=== PATIENT | female | born 1955 | race Hispanic/Latino ===

== ENCOUNTER 2018-02-01 12:59 | Inpatient (IN) | payer MEDICAID ==
--- NOTE | 2018-02-01 13:11 | ED PDOC ---
Arrival/HPI - General Chief Complaint: Altered Mental Status Time Seen by Provider: 02/01/18 13:04 Historian: Patient, Detention, EMS - History of Present Illness Narrative History of Present Illness (Text): 02/01/18 13:36 Pt p/w + altered behavior, hallucinations, disorderly behavior from [facility] [place] at [facility]/rehab facility; pt does not remember why she is in the ED; pt states she has no silav/pain, no sob, no abd pain, no n/v, no numbness/ tingling, no urinary/bowel changes; no rashes; no other complaints; pt is here for further eval. per group home at [facility] [place] at [facility], nurse Smitha, pt was noted to have worsening disruptive behavior, pt was also destructive, breaking things and affecting pt's roommates; per nurse Smitha, pt was noted to try to pour water on other residents/roommates; pt also was noted to be sexually preoocupied (i.e walking around the floor naked); pt was assessed by school social worker and expressed concern that patient was having auditory hallucinations; paranoid behavior; no other medical complaints noted; pt had been at the assisted living facility at [facility] [place] since her ortho surgery 11/2017; pt was just moved to the dementia floor yesterday from subacute care due to her worsening behavior PCP: Dr Feliz pt is at group home for orthopedic aftercare Time/Duration: Prior to Arrival Symptom Onset: Sudden Symptom Course: Unchanged Activities at Onset: Rest Context: Other (group home) Past Medical History - Provider Review Nursing Documentation Reviewed: Yes - Travel History Have you recently traveled outside [place] w/in the past 3 mons?: No - Past History Past History: No Previous - Infectious Disease Hx of Infectious Diseases: None - Reproductive Menopause: Yes Currently : No Family/Social History - Physician Review Nursing Documentation Reviewed: Yes Family/Social History: No Known Family HX Smoking Status: Unknown If Ever Smoked Hx Alcohol Use: No Hx Substance Use: No Hx Substance Use Treatment: No Allergies/Home Meds Allergies/Adverse Reactions: Allergies No Known Allergies Allergy (Verified 02/01/18 13:17) Home Medications: Home Meds Medication Instructions Recorded Confirmed Acetaminophen [Tylenol 325mg tab] 650 mg PO PRN PRN 02/01/18 02/01/18 Bisacodyl [Ducolax] 10 mg RC PRN PRN 02/01/18 02/01/18 Celecoxib [CeleBREX] 100 mg PO BID 02/01/18 02/01/18 Cholecalciferol (Vitd3)/Vit K2 [D3 2,000 iu PO DAILY 02/01/18 02/01/18 + K2 Dots 1,000 Units Tab] Docusate [Colace] 100 mg PO BID 02/01/18 02/01/18 Enoxaparin [Lovenox] 40 mg SQ DAILY 02/01/18 02/01/18 Ferrous Sulfate [Ferosul] 325 mg PO DAILY 02/01/18 02/01/18 Folic Acid 1 mg PO DAILY 02/01/18 02/01/18 [place] Carbonate ER Tab [[place] 450 mg PO BID 02/01/18 02/01/18 Carbonate] Magnesium Hydroxide [Milk Of 30 ml PO PRN PRN 02/01/18 02/01/18 Magnesia] Sod Phos,M-B/Na Phos,Di-Ba [Fleet 0 ml RC PRN PRN 02/01/18 02/01/18 Enema] Review of Systems - Review of Systems Constitutional: Normal Eyes: Normal ENT: Normal Respiratory: Normal Cardiovascular: Normal Gastrointestinal: Normal Genitourinary Female: Normal Musculoskeletal: Normal Skin: Normal Neurological: Normal Endocrine: Normal Hemo/Lymphatic: Normal Psychiatric: Other (unable to assess) Physical Exam Vital Signs Reviewed: Yes Vital Signs Temp Pulse Resp BP Pulse Ox 02/01/18 15:23 104 H 18 151/87 H 98 02/01/18 13:14 98.3 F 98 H 18 138/78 99 Temperature: Afebrile Blood Pressure: Normal Pulse: Regular Respiratory Rate: Normal Appearance: Positive for: Well-Appearing, Non-Toxic, Other (NAD, comfortable appearing, alert/awake, GCS = 15, oriented x 1 (not to place/time/date)) Pain Distress: None Mental Status: Positive for: Confused - Systems Exam Head: Present: Atraumatic, Normocephalic Pupils: Present: PERRL, Other (intact visual field; no nystagmus, no photophobia ) Extroacular Muscles: Present: EOMI Conjunctiva: Present: Normal Ears: Present: Normal Mouth: Present: Dry, Normal Teeth, Other (fair dentitions, mild dry oral mucosa , uvula/tongue are midline, no exudate/lesions) Pharnyx: Present: Normal Nose (External): Present: Atraumatic Nose (Internal): Present: Normal Inspection Neck: Present: Normal Range of Motion, Trachea Midline, Other (intact ROM, no midline tenderness, no nuchal rigidity, no meningeal signs, no step off). No: MIDLINE TENDERNESS Respiratory/Chest: Present: Clear to Auscultation, Good Air Exchange, Other ( coarse breath sounds noted b/l, no rales/rhonchi/wheezing; no tachypenia) Cardiovascular: Present: Regular Rate and Rhythm, Normal S1, S2 Abdomen: Present: Normal Bowel Sounds, Other (well nourished female, no focal tenderness, no masses/rebound/guarding/rigidity, no haddad's sign, no mcburney' s point tenderness). No: Tenderness, Distention Back: Present: Normal Inspection. No: CVA Tenderness, Midline Tenderness Upper Extremity: Present: Normal Inspection, Normal ROM, NORMAL PULSES, Other ( noted right upper arm multiple areas of ecchymosis, with different discoloration (different stages of healing?); no focal tenderness, strength 5/5 grossly intact in all limbs). No: Deformity Lower Extremity: Present: Normal Inspection, NORMAL PULSES, Neurovascularly Intact, Other (decr ROM to b/l lower limbs, neurovasc intact, no gross deformities noted) Neurological: Present: GCS=15, CN II-XII Intact Skin: Present: Warm, Normal Color, Other (cap refill ~ 1 sec, as stated above ecchymosis to right arm; + b/l elbow, b/l knee slight skin erythema, no lacerations/abrasions noted) Psychiatric: Present: Alert Medical Decision Making ED Course and Treatment: 02/01/18 13:30 Impression: AMS, altered behavior i have consider all the differential diagnosis regarding pt's chief medical complaints/clinical findings, including but are not limited to: medical clearance, PES/crisis eval, r/o medical cause A/P: altered behavior - labs - iv - xray - ct - observe - supportive care I spoke with pt's school social worker, Yahir Jaime ([phone]) who states that pt usually is very mild mannered and her behavior escalated yesterday when she became disruptive to her roomates as well as destructive; pt also was noted to be walking around naked; pt with noted auditory hallucinations, and exhibiting paranoid behavior PT IS MEDICALLY CLEARED FOR PSYCH EVAL 02/01/18 15:25 Patient was evaluated by [facility] crisis counsellor. Patient voluntarily will be committed for further psych evaluation and stabilization. Will admit patient to psych team. pt is made aware of her medical results agrees with admission/psych Re-evaluation Time: 15:30 Reassessment Condition: Unchanged - Lab Interpretations Lab Results: 02/01/18 13:47 02/01/18 13:47 Lab Results 02/01/18 16:01: Urine Color Yellow, Urine Appearance Sl cloudy, Urine pH 6.0, Ur Specific [place] 1.010, Urine Protein Negative, Urine Glucose (UA) Negative, Urine Ketones Negative, Urine Blood Small H, Urine Nitrate Negative, Urine Bilirubin Negative, Urine Urobilinogen 0.2, Ur Leukocyte Esterase Large H, Urine RBC 0 - 2, Urine WBC 10 - 15, Urine Bacteria Trace 02/01/18 13:47: [place] 1.5 H 02/01/18 13:47: Alcohol, Quantitative < 10 02/01/18 13:47: Salicylates < 1 L, Acetaminophen < 10.0 L 02/01/18 13:47: Sodium 144, Potassium 3.5 L, Chloride 109 H, Carbon Dioxide 25, Anion Gap 13, BUN 19, Creatinine 1.2, Est GFR ( Amer) 55, Est GFR (Non- Af Amer) 46, Random Glucose 112 H, Calcium 10.8 H, Total Bilirubin 0.5, AST 31, ALT 38, Alkaline Phosphatase 189 H, Total Protein 7.0, Albumin 3.9, Globulin 3.1 , Albumin/Globulin Ratio 1.3 02/01/18 13:47: WBC 15.0 H, RBC 4.39, Hgb 12.8, Hct 39.7, MCV 90.4, MCH 29.2, MCHC 32.2, RDW 15.0 H, Plt Count 242, MPV 10.0, Gran % 81.7 H, Lymph % (Auto) 8.3 L, [place] % (Auto) 9.5 H, Eos % (Auto) 0.3 L, Baso % (Auto) 0.2, Gran # 12.24 H, Lymph # (Auto) 1.2, Taylor # (Auto) 1.4 H, Eos # (Auto) 0.0, Baso # (Auto) 0.03 I have reviewed the lab results: Yes Interpretation: All labs normal - RAD Interpretation Narrative RAD Interpretations (Text): 02/01/18 14:30 Chest X-ray: Creator : Mukesh Hernandez MD FINDINGS: LUNGS: No active pulmonary disease. PLEURA: No significant pleural effusion identified, no pneumothorax apparent. CARDIOVASCULAR: Normal. OSSEOUS STRUCTURES: No significant abnormalities. VISUALIZED UPPER ABDOMEN: Normal. OTHER FINDINGS: None. IMPRESSION: No active disease. 02/01/18 15:[address]: Creator: Mukesh Wills MD Impression: No intracranial mass, hemorrhage or evidence of acute infarct. Minimal chronic white matter ischemic change. Old left basal ganglia lacunar infarct. Radiology Orders: 02/01/18 13:32 HEAD W/O CONTRAST [CT] Stat 02/01/18 13:33 CHEST PORTABLE [RAD] Stat Dope [employer] Operator: ED Physician, Radiologist - EKG Interpretation EKG Interpretation (Text): 02/01/18 13:59 NSr at 95 bpm, normal axis, no ectopy, non-specific st-t changes, BORDERLINE EKG ; no old ekg to compare with Interpreted by ED Physician: Yes Type: 12 lead EKG Comparison: No previous EKG avail. - Medication Orders Current Medication Orders: Discontinued Medications Ziprasidone (Geodon Inj) 20 mg IM STAT STA PRN Reason: Protocol Stop: 02/01/18 15:29 - Scribe Statement The provider has reviewed the documentation as recorded by the Scribe Disposition/Present on Arrival - Present on Arrival Any Indicators Present on Arrival: No History of DVT/PE: No History of Uncontrolled Diabetes: No Urinary Catheter: No History of Decub. Ulcer: No History Surgical Site Infection Following: Orthopedic Procedures - Disposition Have Diagnosis and Disposition been Completed?: Yes Diagnosis: Schizoaffective disorder, bipolar type, Hallucination Disposition: HOSPITALIZED Disposition Time: 16:00 Patient Plan: Admission (psych unit) Condition: STABLE Referrals: Guido Feliz DO [Primary Care Provider] - Follow up with primary Forms: [employer] (Hungarian)
[2018-02-01 13:14] VITALS: BMI 39.0
[2018-02-01 14:00] LABS: BASO # 0.03 K/mm3 (0.0-2.0); BASO % 0.2 % (0.0-3.0); EOS % 0.3 % (1.5-5.0); GRAN # 12.24 (1.4-6.5); GRAN % 81.7 % (50.0-68.0); HEMOGLOBIN 12.8 g/dL (12.0-16.0); LYMPH # 1.2 (1.2-3.4); LYMPH % 8.3 % (22.0-35.0); MEAN CELL VOLUME 90.4 fl (80.0-105.0); MEAN CORPUSCULAR HEMOGLOBIN 29.2 pg (25.0-35.0); MEAN CORPUSCULAR HGB CONC 32.2 g/dl (31.0-37.0); MONO # 1.4 (0.1-0.6); MONO % 9.5 % (1.0-6.0); RBC 4.39 10^6/uL (3.5-6.1)
[2018-02-01 14:15] LABS: ACETAMINOPHEN < 10.0 ug/ml (10.0-20.0); ALB/GLOB RATIO 1.3 (1.1-1.8); ALBUMIN 3.9 g/dL (3.0-4.8); CALCIUM 10.8 mg/dL (8.4-10.5); SALICYLATE < 1 mg/dL (2.0-20.0)
--- NOTE | 2018-02-01 14:28 | RAD ---
HISTORY: AMS, hallucinating/medical clearance COMPARISON: No prior. FINDINGS: LUNGS: No active pulmonary disease. PLEURA: No significant pleural effusion identified, no pneumothorax apparent. CARDIOVASCULAR: Normal. OSSEOUS STRUCTURES: No significant abnormalities. VISUALIZED UPPER ABDOMEN: Normal. OTHER FINDINGS: None. IMPRESSION: No active disease.
--- NOTE | 2018-02-01 15:00 | CT ---
PROCEDURE: CT HEAD WITHOUT CONTRAST. HISTORY: AMS, hallucinating/medical clearance COMPARISON: None available. TECHNIQUE: Axial computed tomography images were obtained through the head/brain without intravenous contrast. Radiation dose: Total exam DLP = 88.24 mGy-cm. This CT exam was performed using one or more of the following dose reduction techniques: Automated exposure control, adjustment of the mA and/or kV according to patient size, and/or use of iterative reconstruction technique. FINDINGS: HEMORRHAGE: No intracranial hemorrhage. BRAIN: No mass effect or edema. No significant atrophy. Minimal periventricular white matter lucency adjacent to the frontal horns of the lateral ventricles, consistent with chronic microvascular ischemic change. Small old lacunar infarct in the head of the left caudate nucleus. No evidence of acute infarct. VENTRICLES: Unremarkable. No hydrocephalus. CALVARIUM: Unremarkable. PARANASAL SINUSES: Unremarkable as visualized. No significant inflammatory changes. MASTOID AIR CELLS: Unremarkable as visualized. No inflammatory changes. OTHER FINDINGS: None. IMPRESSION: No intracranial mass, hemorrhage or evidence of acute infarct. Minimal chronic white matter ischemic change. Old left basal ganglia lacunar infarct.
[2018-02-01 16:16] LABS: URINE BILIRUBIN NEGATIVE (NEGATIVE); URINE BLOOD SMALL (NEGATIVE); URINE GLUCOSE (UA) NEGATIVE (NEGATIVE); URINE LEUKOCYTE ESTERASE LARGE Leu/uL (NEGATIVE); URINE PROTEIN NEGATIVE mg/dL (<30 mg/dL); URINE UROBILINOGEN 0.2 E.U./dL (<1 E.U./dL)
[2018-02-01 16:17] LABS: URINE APPEARANCE SL CLOUDY (CLEAR); URINE COLOR YELLOW (YELLOW)
[2018-02-01 16:21] LABS: URINE BACTERIA TRACE (NEG); URINE RBC 0 - 2 /hpf (0-2)
[2018-02-01 16:37] LABS: BARBITURATES, UR NEGATIVE (NEGATIVE); BENZODIAZEPINES, UR NEGATIVE (NEGATIVE); OPIATES, UR NEGATIVE (NEGATIVE); PHENCYCLIDINE, UR NEGATIVE (NEGATIVE)
--- NOTE | 2018-02-01 20:43 | CARD ---
APPROVED REPORT EKG Measurement Heart [id number] AL [id number] <Conclusion> Sinus rhythm with short AL Otherwise normal ECG
[2018-02-01] MEDS ORDERED: oxyCODONE 5 mg Immediate Release Tab PO PRN (23:48)
[2018-02-01] MEDS ORDERED: Magnesium Hydroxide Susp 30 ml UD PO PRN (23:55)
[2018-02-01] MEDS ORDERED: Alum-Mag Hydrox-Simethicone Susp (30 mL) PO PRN (23:55)
--- NOTE | 2018-02-02 01:04 | PCM.BM ---
<Walt Richards - Last Filed: 02/02/18 01:01> Treatment Plan Problems - Problems identified on initial assessmt Agitated/Aggressive Behavior Date Initiated: 02/01/18 Time Initiated: 20:15 Assessment reference: NA Status: Active Priority: 1 Delusions Date Initiated: 02/01/18 Time Initiated: 20:15 Assessment reference: NA Status: Active Priority: 2 Thought Process Date Initiated: 02/01/18 Time Initiated: 20:15 Assessment reference: NA Status: Active Priority: 3 Ineffective Coping Date Initiated: 02/01/18 Time Initiated: 20:15 Assessment reference: NA Status: Active Priority: 4 Treatment assets and liabiliti Patient Assests: good past tx response Patient Liabilities: poor support system, imparied memory - Milieu Protocol Maintain good personal hygiene: daily Encourage regular showers, every shift Remind patient to perform daily oral care, every shift Assist patient to perform ADL's Maintain personal safety: every shift Educate patient to report safety concerns to staff, every shift Monitor environment for contraband/sharps Medication safety: Monitor for expected outcome, potential side effects: every shift, Assess barriers to learning: every shift, Assess readiness for medication education: every shift Family Contact Family involvement: No known Family/SO Family contact: Other - Goals for Treatment Patient goals for treatment: Unable to identify Discharge/Continuing Care - Education Needs Education Needs: Patient Medication, Patient Diagnosis/Disease Process, Patient Coping Skills, Patient Anger Management skills, Patient Placement options, Patient Community resources, Patient Activities of Daily Living, Patient Pain, Patient Nutrition, Patient Uses of Medical Equipment, Patient Health Practices/ Safety, Patient Personal Hygiene/Grooming, Patient Aftercare Safety Plan - Discharge Discharge Criteria: Tolerates medication w/o severe side effects, Free of agitation <Kiana Hector - Last Filed: 02/02/18 13:39> - Diagnosis (1) Schizoaffective disorder, bipolar type Status: Acute Interventions: 02/02/18 13:39 Psychoeducation supportive therapy Psychopharmacology/adjustment of medications as needed/ monitoring possible side effects Evaluate pt on daily basis Compliance with medications and follow up appointments Long acting medication if pt is noncompliant with pill form Suicide and homicide risk assessment and prevention, coping strategies, safety plan Relapse prevention Reduction of symptoms Improve functional status Possible assertive community treatment Cognitive behavioral therapy Family involvement Possible social skill training as outpatient <Holly Ervin Y - Last Filed: 02/04/18 16:46> Family Contact Family involvement: Family/SO is involved Family contact: Patient agrees to contact Family contact name: Keely Low([phone]) sister Family contacted how many times per week?: 2
[2018-02-02 07:15] LABS: BASO # 0.05 K/mm3 (0.0-2.0); BASO % 0.4 % (0.0-3.0); EOS # 0.1 (0.0-0.7); EOS % 0.9 % (1.5-5.0); GRAN # 10.09 (1.4-6.5); HEMOGLOBIN 12.6 g/dL (12.0-16.0); LYMPH # 1.3 (1.2-3.4); LYMPH % 9.8 % (22.0-35.0); MEAN CELL VOLUME 91.2 fl (80.0-105.0); MEAN CORPUSCULAR HEMOGLOBIN 28.4 pg (25.0-35.0); MEAN CORPUSCULAR HGB CONC 31.2 g/dl (31.0-37.0); MEAN PLATELET VOLUME 10.6 fl (7.0-11.0); MONO # 1.3 (0.1-0.6); MONO % 9.9 % (1.0-6.0); RBC 4.43 10^6/uL (3.5-6.1); RED CELL DISTRIBUTION WIDTH 15.2 % (11.5-14.5); WHITE BLOOD COUNT 12.8 10^3/ul (4.5-11.0)
[2018-02-02 07:27] LABS: ALB/GLOB RATIO 1.2 (1.1-1.8); ALBUMIN 4.1 g/dL (3.0-4.8); ALT/SGPT 32 U/L (7-56); AST/SGOT 29 U/L (14-36); BLOOD UREA NITROGEN 20 mg/dL (7-21); CALCIUM 10.7 mg/dL (8.4-10.5); GFR AFRICAN-AMERICAN > 60; GFR NON-AFRICAN AMERICAN 56; GLUCOSE,FASTING 115 mg/dL (65-110); HDL CHOLESTEROL 52 mg/dL (29-60)
[2018-02-02 07:38] LABS: LDL CHOLESTEROL 95 mg/dL (0-129)
[2018-02-02] MEDS ORDERED: Cholecalciferol 1,000 INTLU TAB PO SCH (08:00)
[2018-02-02] MEDS: Enoxaparin 30 mg Syringe SC SCH (09:39)
[2018-02-02] MEDS: Lactobacillus Acidophilus 500 MU Cap PO SCH (09:39)
[2018-02-02] MEDS: Insulin Reg-MEDIUM-Coverage SC SCH ×3 (13:14→21:07)
--- NOTE | 2018-02-02 13:39 | PCM.PSYCH ---
Initial Psychiatric Evaluation - Initial Psychiatric Evaluation Type of Admission: Voluntary Legal Status: Capacity (pt has capacity to sign consent for tx) Chief Complaint (in patient's own words): "......" Patient's Reaction to Hospitalization: pt was admitted for altered mental status, disorganized behavior, paranoid History of Present Illness and Precipitating Events: shortly patient is 62-year- female, reported h/o Bipolar disorder, not known h/ o suicidal attempts, not known h/o psychiatric admissions, pt was transferred from the [facility] in [place] where she was getting subacute care for orthopedic surgery, pt was transferred from the facility for evaluation of disorganized, psychotic, agitated and aggressive behavior. As per report from the [place] facility, pt was sexually preoccupied/constantly disrobing or walking around naked, pt was also responding to internal stimuli, pt also broke drawers in facility, was pouring water over other residents, previously pt was in assisted living, pt was able to sign consent for treatment. as per report pt was agitated, aggressive, was pouring water on the floor, 3-4 code greys called. Pt was started on 1:1 and was medicated with Gedodon and Ativan. this physician underwriter attempted to speak to the pt, but pt is deeply sedated, was able to open her eyes, but wall back asleep, as per PCP pt ate breakfast. at the time of admission pt was found Li 1.5, UTI, Tipple Greaser was contacted and as well. as per seam finisher will hold [place], it is okay to resume Macrobid. Past psychiatric h/o: Schizoaffective D/O, Bipolar Type and was recently dx. w/ Dementia w/ Beh. Disturbances. Pt. also suffers from Unspec. Intellectual Disabilities. Pt. is seen by psychiatrist Dr. Gamez, will call for collaterals. Medical h/o: New UTI, pt had been at the assisted living facility at [facility] since her ortho surgery 11/2017; anemia pt's PCP is Guido Feliz. Collaterals from [facility] by PES CresencioRanjan: "nurse Smitha, pt was noted to have worsening disruptive behavior, pt was also destructive, breaking things and affecting pt's roommates; per nurse Bone, pt was noted to try to pour water on other residents/roommates; pt also was noted to be sexually preoocupied (i.e walking around the floor naked); pt was assessed by manager social work and expressed concern that patient was having auditory hallucinations; paranoid behavior; no other medical complaints noted; pt was just moved to the dementia floor 01/31/18 from subacute care due to her worsening behavior" Family h/o unknown h/o abuse unknown h/o psych hospitalizations unknown collaterals from will be obtained, left a message substance abuse and smoking unknown 02/02/18 06:50 02/02/18 06:50 Lab Results 02/02/18 09:35: Phosphorus 3.4, Magnesium 2.8 H 02/02/18 06:50: TSH 3rd Generation 1.05 02/02/18 06:50: Sodium 148, Potassium 3.7, Chloride 113 H, Carbon Dioxide 23, Anion Gap 17, BUN 20, Creatinine 1.0, Est GFR ( Amer) > 60, Est GFR (Non- Af Amer) 56, Random Glucose 115 H, Fasting Glucose 115 H, Calcium 10.7 H, Total Bilirubin 0.8, AST 29, ALT 32, Alkaline Phosphatase 219 H, Total Protein 7.4, Albumin 4.1, Globulin 3.3, Albumin/Globulin Ratio 1.2, Triglycerides 112, Cholesterol 174, LDL Cholesterol Direct 95, HDL Cholesterol 52 02/02/18 06:50: WBC 12.8 H, RBC 4.43, Hgb 12.6, Hct 40.4, MCV 91.2, MCH 28.4, MCHC 31.2, RDW 15.2 H, Plt Count 272, MPV 10.6, Gran % 79.0 H, Lymph % (Auto) 9.8 L, [place] % (Auto) 9.9 H, Eos % (Auto) 0.9 L, Baso % (Auto) 0.4, Gran # 10.09 H, Lymph # (Auto) 1.3, [place] # (Auto) 1.3 H, Eos # (Auto) 0.1, Baso # (Auto) 0.05 02/02/18 06:50: [place] 1.0 02/01/18 16:01: Urine Opiates Screen Negative, Urine Methadone Screen Negative, Ur Barbiturates Screen Negative, Ur Phencyclidine Scrn Negative, Ur Amphetamines Screen Negative, U Benzodiazepines Scrn Negative, U Oth Cocaine Metabols Negative, U Cannabinoids Screen Negative 02/01/18 16:01: Urine Color Yellow, Urine Appearance Sl cloudy, Urine pH 6.0, Ur Specific [place] 1.010, Urine Protein Negative, Urine Glucose (UA) Negative, Urine Ketones Negative, Urine Blood Small H, Urine Nitrate Negative, Urine Bilirubin Negative, Urine Urobilinogen 0.2, Ur Leukocyte Esterase Large H, Urine RBC 0 - 2, Urine WBC 10 - 15, Urine Bacteria Trace 02/01/18 13:47: [place] 1.5 H 02/01/18 13:47: Alcohol, Quantitative < 10 02/01/18 13:47: Salicylates < 1 L, Acetaminophen < 10.0 L 02/01/18 13:47: Sodium 144, Potassium 3.5 L, Chloride 109 H, Carbon Dioxide 25, Anion Gap 13, BUN 19, Creatinine 1.2, Est GFR ( Amer) 55, Est GFR (Non- Af Amer) 46, Random Glucose 112 H, Calcium 10.8 H, Total Bilirubin 0.5, AST 31, ALT 38, Alkaline Phosphatase 189 H, Total Protein 7.0, Albumin 3.9, Globulin 3.1 , Albumin/Globulin Ratio 1.3 02/01/18 13:47: WBC 15.0 H, RBC 4.39, Hgb 12.8, Hct 39.7, MCV 90.4, MCH 29.2, MCHC 32.2, RDW 15.0 H, Plt Count 242, MPV 10.0, Gran % 81.7 H, Lymph % (Auto) 8.3 L, [place] % (Auto) 9.5 H, Eos % (Auto) 0.3 L, Baso % (Auto) 0.2, Gran # 12.24 H, Lymph # (Auto) 1.2, [place] # (Auto) 1.4 H, Eos # (Auto) 0.0, Baso # (Auto) 0.03 Vital Signs Temp Pulse Resp BP Pulse Ox 02/02/18 07:33 98.0 F 57 L 20 146/84 02/01/18 22:00 20 02/01/18 15:23 104 H 18 151/87 H 98 02/01/18 13:14 98.3 F 98 H 18 138/78 99 Current Medications: Active Medications Generic Name Dose Route Start Last Admin Trade Name Freq PRN Reason Stop Dose Admin Acetaminophen 650 mg 02/01/18 23:55 Tylenol 325mg Tab PO Q6H PRN Pain, moderate (4-7) Al Hydrox/Mg Hydrox/Simethicone 30 ml 02/01/18 23:55 Maalox Plus 30 Ml PO DAILY PRN Indigestion / Heartburn Docusate Sodium 100 mg 02/02/18 08:00 02/02/18 09:39 Colace PO 100 mg BID GREGORY Administration Enoxaparin Sodium 30 mg 02/02/18 09:15 02/02/18 09:39 Lovenox SC 30 mg DAILY [facility] Administration Protocol Ferrous Sulfate 324 mg 02/02/18 08:00 02/02/18 09:39 Feosol PO 324 mg DAILY G[facility] Administration Folic Acid 1 mg 02/02/18 08:00 02/02/18 09:40 Folic Acid PO 1 mg DAILY [facility] Administration Insulin Human Regular 0 units 02/02/18 11:30 02/02/18 13:14 Humulin R Med SC Not Given ACHS [facility] Protocol Lactobacillus Acidophilus 1 cap 02/02/18 08:00 02/02/18 09:39 Bacid Acidophilus PO 1 cap DAILY [facility] Administration Lorazepam 1 mg 02/01/18 23:59 Ativan IM Q8H PRN Anxiety Protocol Lorazepam 1 mg 02/02/18 00:00 02/02/18 09:39 Ativan PO 1 mg Q6H PRN Administration Anxiety Protocol Lorazepam 1 mg 02/02/18 00:13 Ativan IM Q8 PRN Agitation Magnesium Hydroxide 30 ml 02/01/18 23:55 Milk Of Magnesia PO DAILY PRN Constipation Nitrofurantoin Macrocrystals 100 mg 02/02/18 06:00 02/02/18 10:03 Macrobid PO 02/04/18 19:00 100 mg Q12 GREG[facility] Administration Protocol Oxycodone HCl 5 mg 02/01/18 23:48 Oxycodone Immediate Release Tab PO Q4H PRN Moderate to Severe Pain Quetiapine Fumarate 100 mg 02/02/18 10:00 02/02/18 09:39 Seroquel PO 100 mg AMHS [facility] Administration Protocol Zaleplon 5 mg 02/01/18 22:42 02/01/18 22:57 Sonata PO 5 mg HS PRN Administration Insomnia Ziprasidone 20 mg 02/01/18 23:57 Geodon Inj IM Q8H PRN Severe Agitation Protocol Past Psychiatric History - Past Psychiatric History Prior Professional Help: HPI Prior Psychiatric Treatment: as per HPI At what hospital: as per HPI Duration: as per HPI Nature of Treatment: as per HPI Explanation of prior treatment: as per HPI History of Abuse: as per HPI unknown History of ETOH/Drug Use: as per HPI History of Family Illness: as per HPI Pertinent Medical Hx (Current Medical&Sleep Prob, Allergies): Allergies Allergy/AdvReac Type Severity Reaction Status Date / Time No Known Allergies Allergy Verified 02/02/18 00:14 Acetaminophen [Tylenol 325mg tab] 650 mg PO PRN PRN 02/01/18 Bisacodyl [Ducolax] 10 mg RC PRN PRN 02/01/18 Celecoxib [CeleBREX] 100 mg PO BID 02/01/18 Cholecalciferol (Vitd3)/Vit K2 [D3 + K2 Dots 1,000 Units Tab] 2,000 iu PO DAILY 02/01/18 Docusate [Colace] 100 mg PO BID 02/01/18 Enoxaparin [Lovenox] 40 mg SQ DAILY 02/01/18 Ferrous Sulfate [Ferosul] 325 mg PO DAILY 02/01/18 Folic Acid 1 mg PO DAILY 02/01/18 [place] Carbonate ER Tab [[place] Carbonate] 450 mg PO BID 02/01/18 Magnesium Hydroxide [Milk Of Magnesia] 30 ml PO PRN PRN 02/01/18 Sod Phos,M-B/Na Phos,Di-Ba [Fleet Enema] 0 ml RC PRN PRN 02/01/18 oxyCODONE 5 mg PO Q4H PRN 02/02/18 Review of Systems - Review of Systems Systems not reviewed;Unavailable: Acuity of Condition - EENT Eyes: As Per HPI Ears: As Per HPI Nose/Mouth/Throat: As Per HPI - Breasts Breasts: As Per HPI - Cardiovascular Cardiovascular: As Per HPI - Respiratory Respiratory: As Per HPI - Gastrointestinal Gastrointestinal: As Per HPI - Genitourinary Genitourinary: As Per HPI - Reproductive: Female Reproductive:Female: As Per HPI - Menstruation Menstruation: As Per HPI - Musculoskeletal Musculoskeletal: As Par HPI - Integumentary Integumentary: As Per HPI - Neurological Neurological: As Per HPI - Psychiatric Psychiatric: As Per HPI - Endocrine Endocrine: As Per HPI - Hematologic/Lymphatic Hematologic: As Per HPI Mental Status Examination - Personal Presentation Personal Presentation: Looks stated age - Affect Affect: Flat - Motor Activity Motor Activity: Other (pt was agitated earlier at the moment of interview sleeping) - Reliability in Providing Information Reliability in Providing Information: Poor, due to alteration in thoughts, Poor , due to altered mood, Poor, due to cognitve impairment - Speech Speech: Disorganized - Formal Thought Process Formal Thought Process: Delusions, Paranoia, Loosening of associations - Obsessions/Compulsions Obsessions: None Compulsions: None - Cognitive Functions Sensorium: Drowsy Estimate of Intelligence: Average Judgement: Intact, as evidence by: Insight regarding need for hospitalization - Risk Risk: Suicidal, Self-mutilation, Diminished functioning - Strength & Assets Inventory Strength & Assets Inventory: Other (no drug h/o) - Limitations Limitations: Decreased memory, recent DSM 5 DX - DSM 5 DSM 5 Diagnosis: ?bipolar disorder h/o dementia for behavioral disturbances r/o delirium due to UTI and [place] tox - Recommended/Plan of Treatment Treatment Recommendations and Plan of Treatment: milieu/structure/supportive therapy Acetaminophen [Tylenol 325mg tab] 650 mg PO PRN Bisacodyl [Ducolax] 10 mg RC PRN PRN Celecoxib [CeleBREX] 100 mg PO BID nonformulary Cholecalciferol (Vitd3)/Vit K2 [D3 + K2 Dots 1,000 Units Tab] 2,000 iu PO DAILY as per medical team Docusate [Colace] 100 mg PO BID Ferrous Sulfate [Ferosul] 325 mg PO DAILY 02/01/18 Folic Acid 1 mg PO DAILY [place] Carbonate ER Tab [[place] Carbonate] 450 mg PO BID was stopped Magnesium Hydroxide [Milk Of Magnesia] 30 ml PO PRN PRN oxyCODONE 5 mg PO Q4H PRN seroquel 100mg po bid for psychossi ativan as needed geodon as needed sonata as needed nephrology and medical team involved SW consultation for discharge plan and social issues psychiatrist was contacted, awaiting for call back Family involvement Follow up on labs Will monitor closely Pt was educated about risk/benefits and alternatives of medications, coping strategies (safety plan, suicide prevention), relapse prevention, importance of follow up with psychiatrist and therapist, stay away from drugs/alcohol/smoking Projected ELOS: 7days Prognosis: guarded Discharge Plan and Discharge Criteria: Pt will be not depressed or manic, will be more hopeful, will be not psychotic or anxious, will be not having thoughts of harming self or others, will be tolerating medications well, will not have major side effects, will be able to function, will not pose threat to self or others.
--- NOTE | 2018-02-02 16:40 | CP.PCM.CON ---
History of Present Illness - History of Present Illness History of Present Illness: Initial Nephrology Consultation: Assessment: Stable Mild Hypernatremia and mild Hypercalcemia ? due to [place] as it can cause nephrogenic DI and hyperparathyroidism possible UTI elevated BP Bipolar disorder Plan No acute need for renal replacement therapy at this time. BP control acceptable for now If need to continue with lithium, suggest adding amiloride 5 mg/day to minimize kidney damage from correction use of lithium. But, also will need close monitoring of li level while on amiloride pt to drink plenty of fluids/water hold vit D supplements for now agree with macrobid. follow urine cx/sens results Check urine sodium, urine osmol Check for 25-OH vitamin D, iPTH, phosphorus level, serum protein electrophoresis with immunofixation, serum free light chain assay Dose meds/antibiotics for normal GFR. Further work up/management as per primary team Thanks for allowing me to participate in care of your patient. Will follow patient with you. Please call if any Qs. d/w team Dr Jaquan Adams Office: [phone] Chief Complaint; unable reason for consult: electrolyte abnormalities source of Info: as per EMR HPI: Pt is a 62 F with hx of bipolar disorder, on lithium presented with complaints of behavioral changes and hallucinations. renal consult for electrolytes abnormality and UTI pt unable to provide much reliable hx ROS: Cardiovascular: No chest pain. Pulmonary: No shortness of breath Gastrointestinal: denies abdominal pain No nausea. No vomiting. Genitourinary: No pain while urinating. Denies blood in urine. All other negative but overall very limited ROS and not very reliable Physical Examination: General Appearance: Comfortable, in no acute respiratory distress, co-operative . Vitals reviewed and noted as below Head; Atraumatic, normocephalic ENT: no ulcers no thrush. Tongue is midline. Oropharynx: no rash or ulcers. EYES: Pupils are equal, round and reactive to light accommodation. Eye muscles and extraocular movement intact. Sclera is anicteric. Neck; supple no lymphadenopathy, no thyromegaly or bruit Lungs: Normal respiratory rate/effort. Breath sounds bilateral equal and clear Heart: Normal rate. s1s2 normal. No rub or gallop. Extremities: no edema. No varicose veins Neurological: Patient is alert, awake and oriented to person, place and time. No focal deficit. Strength bilateral appropriate and equal Skin: Warm and dry. Normal turgor. No rash. Palpitation: Normal elasticity for age Abdomen: Abdomen is soft. Bowel sounds +. There is no abdominal tenderness, no guarding/rigidity no organomegaly Psych: lack insight and hallcuniations + MSK: no joint tenderness or swelling. Digits and nails normal, no deformity : kidney or bladder not palpable Labs/imaging reviewed. Past medical history, past surgical history, family history, social history, allergy reviewed and noted as below Family hx: no hx of CKD. Rest non-contributory Past Patient History - Infectious Disease Hx of Infectious Diseases: None - Past Social History Smoking Status: Unknown If Ever Smoked - CARDIAC Hx Cardiac Disorders: No Hx Hypertension: No - PULMONARY Hx Tuberculosis: No - NEUROLOGICAL HX Cerebrovascular Accident: No Hx Seizures: No - HEENT Hx HEENT Problems: No - RENAL Hx Chronic Kidney Disease: No - HEMATOLOGICAL/ONCOLOGICAL Hx Cancer: No Hx Human Immunodeficiency Virus (HIV): No - GENITOURINARY/GYNECOLOGICAL Hx Sexually Transmitted Disorders: No - PSYCHIATRIC Hx Bipolar Disorder: Yes Hx Schizophrenia: Yes Hx Substance Use: No - ANESTHESIA Hx Anesthesia Reactions: No Meds Allergies/Adverse Reactions: Allergies Allergy/AdvReac Type Severity Reaction Status Date / Time No Known Allergies Allergy Verified 02/02/18 00:14 - Medications Medications: Current Medications Acetaminophen (Tylenol 325mg Tab) 650 mg PO Q6H PRN PRN Reason: Pain, moderate (4-7) Al Hydrox/Mg Hydrox/Simethicone (Maalox Plus 30 Ml) 30 ml PO DAILY PRN PRN Reason: Indigestion / Heartburn Docusate Sodium (Colace) 100 mg PO BID [facility] Last Admin: 02/02/18 09:39 Dose: 100 mg Enoxaparin Sodium (Lovenox) 30 mg SC DAILY [facility] PRN Reason: Protocol Last Admin: 02/02/18 09:39 Dose: 30 mg Ferrous Sulfate (Feosol) 324 mg PO DAILY [facility] Last Admin: 02/02/18 09:39 Dose: 324 mg Folic Acid (Folic Acid) 1 mg PO DAILY [facility] Last Admin: 02/02/18 09:40 Dose: 1 mg Insulin Human Regular (Humulin R Med) 0 units SC ACHS [facility] PRN Reason: Protocol Last Admin: 02/02/18 13:14 Dose: Not Given Lactobacillus Acidophilus (Bacid Acidophilus) 1 cap PO DAILY [facility] Last Admin: 02/02/18 09:39 Dose: 1 cap Lorazepam (Ativan) 1 mg IM Q8H PRN; Protocol PRN Reason: Anxiety Lorazepam (Ativan) 1 mg PO Q6H PRN; Protocol PRN Reason: Anxiety Last Admin: 02/02/18 09:39 Dose: 1 mg Lorazepam (Ativan) 1 mg IM Q8 PRN PRN Reason: Agitation Magnesium Hydroxide (Milk Of Magnesia) 30 ml PO DAILY PRN PRN Reason: Constipation Nitrofurantoin Macrocrystals (Macrobid) 100 mg PO Q12 [facility] PRN Reason: Protocol Stop: 02/04/18 19:00 Last Admin: 02/02/18 10:03 Dose: 100 mg Oxycodone HCl (Oxycodone Immediate Release Tab) 5 mg PO Q4H PRN PRN Reason: Moderate to Severe Pain Quetiapine Fumarate (Seroquel) 100 mg PO [facility] PRN Reason: Protocol Last Admin: 02/02/18 09:39 Dose: 100 mg Zaleplon (Sonata) 5 mg PO HS PRN PRN Reason: Insomnia Last Admin: 02/01/18 22:57 Dose: 5 mg Ziprasidone (Geodon Inj) 20 mg IM Q8H PRN; Protocol PRN Reason: Severe Agitation Results - Vital Signs Recent Vital Signs: Last Vital Signs Temp 98.0 F 02/02/18 07:33 Pulse 57 L 02/02/18 07:33 Resp 20 02/02/18 07:33 BP 146/84 02/02/18 07:33 Pulse Ox 98 02/01/18 15:23 - Labs Result Diagrams: 02/02/18 06:50 02/02/18 06:50 Labs: Laboratory Results - last 24 hr 02/02/18 02/02/18 02/02/18 06:50 06:50 06:50 WBC 12.8 H RBC 4.43 Hgb 12.6 Hct 40.4 MCV 91.2 MCH 28.4 MCHC 31.2 RDW 15.2 H Plt Count 272 MPV 10.6 Gran % 79.0 H Lymph % (Auto) 9.8 L [place] % (Auto) 9.9 H Eos % (Auto) 0.9 L Baso % (Auto) 0.4 Gran # 10.09 H Lymph # (Auto) 1.3 [place] # (Auto) 1.3 H Eos # (Auto) 0.1 Baso # (Auto) 0.05 Sodium 148 Potassium 3.7 Chloride 113 H Carbon Dioxide 23 Anion Gap 17 BUN 20 Creatinine 1.0 Est GFR ( Amer) > 60 Est GFR (Non-Af Amer) 56 Random Glucose 115 H Fasting Glucose 115 H Calcium 10.7 H Phosphorus Magnesium Total Bilirubin 0.8 AST 29 ALT 32 Alkaline Phosphatase 219 H Total Protein 7.4 Albumin 4.1 Globulin 3.3 Albumin/Globulin Ratio 1.2 Triglycerides 112 Cholesterol 174 LDL Cholesterol Direct 95 HDL Cholesterol 52 TSH 3rd Generation [place] 1.0 RPR 02/02/18 02/02/18 02/02/18 06:50 06:50 09:35 WBC RBC Hgb Hct MCV MCH MCHC RDW Plt Count MPV Gran % Lymph % (Auto) [place] % (Auto) Eos % (Auto) Baso % (Auto) Gran # Lymph # (Auto) [place] # (Auto) Eos # (Auto) Baso # (Auto) Sodium Potassium Chloride Carbon Dioxide Anion Gap BUN Creatinine Est GFR ( Amer) Est GFR (Non-Af Amer) Random Glucose Fasting Glucose Calcium Phosphorus 3.4 Magnesium 2.8 H Total Bilirubin AST ALT Alkaline Phosphatase Total Protein Albumin Globulin Albumin/Globulin Ratio Triglycerides Cholesterol LDL Cholesterol Direct HDL Cholesterol TSH 3rd Generation 1.05 [place] RPR Nonreactive
--- NOTE | 2018-02-02 17:37 | CON ---
DATE: HISTORY OF PRESENT ILLNESS: In the psychiatric floor, I was called to see her by the psychiatrist. She comes in with altered mental status. I see her in a wheelchair with a one-to-one. She is a 62-year-old white female who is pleasantly confused at this time with altered behavior. She is answering my questions, but not 100%, and in and out of it mentally. Difficult to get a good history from her and have a conversation, but she is pleasant, nonviolent, not doing anything bizarre, just not really responding. Her eyes are open. She is looking at me. Does answer a few questions here and there. PAST MEDICAL HISTORY: She had disruptive behavior, hallucinations. She had some paranoid behavior. She was moved to the dementia floor. MEDICATIONS: She is on Tylenol, Dulcolax, Celebrex for osteoarthritis, vitamins, Colace, Lovenox, [place]. She might be bipolar. Magnesium. ALLERGIES: SHE HAS NO KNOWN DRUG ALLERGIES. FAMILY HISTORY: No family history I could find any information on. SOCIAL HISTORY: Never smoked. No alcohol. No drugs. REVIEW OF SYSTEMS: Difficult to get all the answers. No apparent vision or hearing issues, may be hard of hearing. She is not really responding well. No apparent chest pain. No shortness of breath. No acute distress. No abdominal pain at this time. PHYSICAL EXAMINATION: VITAL SIGNS: She has a 98.3 temperature, 98 pulse, 18 respiratory rate, 138/78 blood pressure, 99% O2 sat. GENERAL: She is alert, looking at me, in no apparent distress, well appearing. HEENT: Head is atraumatic, normocephalic. Extraocular muscles are intact. Throat is moist. NECK: Supple. HEART: Regular rate. Normal S1 and S2. LUNGS: Decreased breath sounds bilaterally, but clear to auscultation. ABDOMEN: Soft, nontender. Positive bowel sounds. EXTREMITIES: No edema. She has difficulty moving the right upper extremity. She would not move it high over her head. NEUROLOGIC: She can smile. She did stick out her tongue. She has GCS of 15. Cranial nerves II through XII grossly intact. Difficulty to do a complete neurological exam. SKIN: From what I could tell is intact with no apparent lesions or ulcers. LYMPH: No apparent or palpable lymphadenopathy appreciated. LABORATORY DATA: She had multiple tests done. She came in with a 15,000 white count, it is down to 12.8. She has a 12.6 hemoglobin, 40.4 hematocrit with over 272 platelets. She has a 148 sodium, potassium 3.7. BUN is 20, creatinine is 1. GFR is greater than 56. Sugar is 115. We are going to check on her blood sugars around the clock. Calcium is 10.7, a little bit high. We will check that again too. AST is 29, ALT is 32, alk phos 219. Total protein 7.4, albumin 4.1, globulin 3.3. Triglycerides are 112, cholesterol is 174. TSH is 1.05. Urine was positive for large leukocytes. She is now on Macrodantin. This could be urinary tract infection for her change in mentation. There was a head CT which showed an infarct. Chest x-ray was clean. EKG with normal sinus rhythm. She is on Ativan, acidophilus, Colace, Feosol S, folic acid, Geodon, Macrobid now, Seroquel, Sonata, Tylenol. She was on Lovenox. I will continue the Lovenox for prevention of DVT. Also, I will put her on insulin coverage with the elevated blood sugars. We will continue with aggressive treatment and care. She has schizoaffective disorder, hallucination, change in mentation, disruptive behavior, possible infarct dementia, leukocytosis with UTI, and possible diabetes with high blood sugars. Thank you very much, to participate in this consult. Tien Jaffe DO
[2018-02-03] MEDS: Insulin Reg-MEDIUM-Coverage SC SCH ×4 (09:37→21:48)
[2018-02-03] MEDS: Lactobacillus Acidophilus 500 MU Cap PO SCH (09:39)
[2018-02-03] MEDS: Enoxaparin 30 mg Syringe SC SCH (09:50)
[2018-02-03 11:51] LABS: OSMOLALITY,URINE 157 mosm/kg (300-1000)
[2018-02-03 12:12] LABS: ALBUMIN (PEP) 3.7 g/dL (3.8-4.8); ALPHA-1-GLOBULIN (PEP) 0.4 g/dL (0.2-0.3)
--- NOTE | 2018-02-03 14:48 | PN ---
DATE: SUBJECTIVE: I saw her resting comfortably in the psychiatric floor. She is on a hospital bed. The rales are up and she is trying to get out and she is on a one-to-one. A little loud in yelling. MEDICATIONS: She is on Ativan, Bacid, Colace, Feosol, folic acid, Geodon, insulin, Lovenox, Maalox, Macrobid, milk of magnesia, oxycodone, Seroquel, Sonata, and Tylenol. PHYSICAL EXAMINATION VITAL SIGNS: 97.6 temp, 87 pulse, 130/70 blood pressure, 20 respiratory rate, 98% O2 sat on room air. HEENT: Head is atraumatic and normocephalic. I went to listen to her heart and she pushed my arm away. She would not let me examine her. LABORATORY DATA: She had a 12.8 white count, coming down; 12.6 hemoglobin; 40.4 hematocrit with a 272,000 platelets. Sodium 148, potassium is 3.7, BUN is 20, creatinine 1, GFR is 56, calcium is 10.7. She refused blood this morning. I am trying getting a blood test tomorrow. She is being seen by [facility]. I will watch very closely as per Psychiatry. Encouraged him to have her reoriented while she is on a one-to-one. Tien Jaffe DO
--- NOTE | 2018-02-03 15:07 | PCM.PYCHPN ---
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 patient is too psychotic to understand Medical Problems: New UTI, pt had been at the assisted living facility at [facility] since her ortho surgery 11/2017; anemia pt's PCP is Guido Feliz. Diagnostic Results: 02/02/18 06:50 02/02/18 06:50 Lab Results 02/03/18 11:51: POC Glucose (mg/dL) 97 02/03/18 09:13: POC Glucose (mg/dL) 160 H 02/02/18 23:20: Urine Osmolality 157 L, Ur Random Sodium 12 02/02/18 21:07: POC Glucose (mg/dL) 110 02/02/18 17:01: POC Glucose (mg/dL) 104 02/02/18 09:35: Phosphorus 3.4, Magnesium 2.8 H 02/02/18 09:35: 25-OH Vitamin D Total 25.4 L 02/02/18 09:35: Total Protein (PEP) 6.8, Albumin (PEP) 3.7 L, Wpvvu-1-Erofjzprr 0.4 H, Bophm-8-Nxlqkjths 0.8, Ojff-7-Zkwrgxog 0.4, Citg-0-Hnkzjyce 0.3, Gamma Globulins 1.1, Abnorm Protein Band 1 TEST NOT PERFORMED, Abnorm Protein Band 2 TEST NOT PERFORMED, Abnorm Protein Band 3 TEST NOT PERFORMED, RANDOLPH & SPEP Interp See note, Serum Immunofixation Pending, Tot [place]/Lambda Ratio Pending, [place] Light Chain Anal Pending, Lambda Light Chain Anal Pending 02/02/18 09:35: PTH Intact Whole Molec 153 H 02/02/18 06:50: RPR Nonreactive 02/02/18 06:50: TSH 3rd Generation 1.05 02/02/18 06:50: Sodium 148, Potassium 3.7, Chloride 113 H, Carbon Dioxide 23, Anion Gap 17, BUN 20, Creatinine 1.0, Est GFR ( Amer) > 60, Est GFR (Non- Af Amer) 56, Random Glucose 115 H, Fasting Glucose 115 H, Calcium 10.7 H, Total Bilirubin 0.8, AST 29, ALT 32, Alkaline Phosphatase 219 H, Total Protein 7.4, Albumin 4.1, Globulin 3.3, Albumin/Globulin Ratio 1.2, Triglycerides 112, Cholesterol 174, LDL Cholesterol Direct 95, HDL Cholesterol 52 02/02/18 06:50: WBC 12.8 H, RBC 4.43, Hgb 12.6, Hct 40.4, MCV 91.2, MCH 28.4, MCHC 31.2, RDW 15.2 H, Plt Count 272, MPV 10.6, Gran % 79.0 H, Lymph % (Auto) 9.8 L, [place] % (Auto) 9.9 H, Eos % (Auto) 0.9 L, Baso % (Auto) 0.4, Gran # 10.09 H, Lymph # (Auto) 1.3, [place] # (Auto) 1.3 H, Eos # (Auto) 0.1, Baso # (Auto) 0.05 02/02/18 06:50: [place] 1.0 02/01/18 16:01: Urine Opiates Screen Negative, Urine Methadone Screen Negative, Ur Barbiturates Screen Negative, Ur Phencyclidine Scrn Negative, Ur Amphetamines Screen Negative, U Benzodiazepines Scrn Negative, U Oth Cocaine Metabols Negative, U Cannabinoids Screen Negative 02/01/18 16:01: Urine Color Yellow, Urine Appearance Sl cloudy, Urine pH 6.0, Ur Specific [place] 1.010, Urine Protein Negative, Urine Glucose (UA) Negative, Urine Ketones Negative, Urine Blood Small H, Urine Nitrate Negative, Urine Bilirubin Negative, Urine Urobilinogen 0.2, Ur Leukocyte Esterase Large H, Urine RBC 0 - 2, Urine WBC 10 - 15, Urine Bacteria Trace 02/01/18 13:47: [place] 1.5 H 02/01/18 13:47: Alcohol, Quantitative < 10 02/01/18 13:47: Salicylates < 1 L, Acetaminophen < 10.0 L 02/01/18 13:47: Sodium 144, Potassium 3.5 L, Chloride 109 H, Carbon Dioxide 25, Anion Gap 13, BUN 19, Creatinine 1.2, Est GFR ( Amer) 55, Est GFR (Non- Af Amer) 46, Random Glucose 112 H, Calcium 10.8 H, Total Bilirubin 0.5, AST 31, ALT 38, Alkaline Phosphatase 189 H, Total Protein 7.0, Albumin 3.9, Globulin 3.1 , Albumin/Globulin Ratio 1.3 02/01/18 13:47: WBC 15.0 H, RBC 4.39, Hgb 12.8, Hct 39.7, MCV 90.4, MCH 29.2, MCHC 32.2, RDW 15.0 H, Plt Count 242, MPV 10.0, Gran % 81.7 H, Lymph % (Auto) 8.3 L, [place] % (Auto) 9.5 H, Eos % (Auto) 0.3 L, Baso % (Auto) 0.2, Gran # 12.24 H, Lymph # (Auto) 1.2, [place] # (Auto) 1.4 H, Eos # (Auto) 0.0, Baso # (Auto) 0.03 Vital Signs Temp Pulse Resp BP Pulse Ox 02/03/18 07:34 97.6 F 87 20 130/78 02/02/18 16:00 106 H 121/71 02/02/18 07:33 98.0 F 57 L 20 146/84 02/01/18 22:00 20 02/01/18 15:23 104 H 18 151/87 H 98 02/01/18 13:14 98.3 F 98 H 18 138/78 99 DSM 5 Symptoms Update: shortly patient is 62-year- female, reported h/o Bipolar disorder, not known h/ o suicidal attempts, not known h/o psychiatric admissions, pt was transferred from the [facility] in [place] where she was getting subacute care for orthopedic surgery, pt was transferred from the facility for evaluation of disorganized, psychotic, agitated and aggressive behavior. As per report from the [facility] facility, pt was sexually preoccupied/constantly disrobing or walking around naked, pt was also responding to internal stimuli, pt also broke drawers in facility, was pouring water over other residents, previously pt was in assisted living, pt was able to sign consent for treatment. patient still has episodes of agitated, aggressive, behavior, but with some improvements. patient was seen at the treatment team meeting, patient presented to be disorganized, almost catatonic stage, patient was saying few word answers "I shouldn't be here", yes or no answers only, there is no option to have meaningful conversation. As per staff report patient is religiously preoccupied, disorganized. patient was seen by actuary, medical team as well as, input appreciated. Voicemail was left for patient primary care psychiatrist. Patient tolerates medications well, no side effects observed or reported. Impression: Schizoaffective disorder Rule out delirium due to general medical condition including UTI, lithium toxicity Medication Change: Yes Medical Record Reviewed: Yes Consults ordered or reviewed: medical consult appreciated, nephrology consult appreciated. Mental Status Examination - Cognitive Function Memory: Impaired Attention: Poor Concentration: Poor Association: Loose Fund of Knowledge: Poor - Mood Mood: Depressed, Anxious - Affect Affect: Flat - Formal Thought Process Formal Thought Process: Delusions, Paranoia, Loosening of associations - Suicidal Ideation Suicidal Ideation: No - Homicidal Ideation Homicidal Ideation: No Goal/Treatment Plan - Goal/Treatment Plan Need for Continued Stay: Remain at risks for inpatient hospitalization, Severe depression anxiety, Discharge may exacerbated symptoms, Failed transitioning, Severe functional impairment Progress Toward Problem(s) and Goals/Treatment Plan: milieu/structure/supportive therapy Acetaminophen [Tylenol 325mg tab] 650 mg PO PRN Bisacodyl [Ducolax] 10 mg RC PRN PRN Celecoxib [CeleBREX] 100 mg PO BID nonformulary Cholecalciferol (Vitd3)/Vit K2 [D3 + K2 Dots 1,000 Units Tab] 2,000 iu PO DAILY as per medical team Docusate [Colace] 100 mg PO BID Ferrous Sulfate [Ferosul] 325 mg PO DAILY 02/01/18 Folic Acid 1 mg PO DAILY [place] Carbonate ER Tab [[place] Carbonate] 450 mg PO BID was stopped Magnesium Hydroxide [Milk Of Magnesia] 30 ml PO PRN PRN oxyCODONE 5 mg PO Q4H PRN seroquel 100mg po bid for psychosis ativan as needed geodon as needed sonata as needed nephrology and medical team involved SW consultation for discharge plan and social issues psychiatrist was contacted, awaiting for call back Family involvement Follow up on labs Will monitor closely Pt was educated about risk/benefits and alternatives of medications, coping strategies (safety plan, suicide prevention), relapse prevention, importance of follow up with psychiatrist and therapist, stay away from drugs/alcohol/smoking Estimated Date of D/C: 02/11/18
[2018-02-04 07:43] LABS: HEMOGLOBIN 12.6 g/dL (12.0-16.0); MEAN CELL VOLUME 91.9 fl (80.0-105.0); MEAN CORPUSCULAR HEMOGLOBIN 29.1 pg (25.0-35.0); MEAN CORPUSCULAR HGB CONC 31.7 g/dl (31.0-37.0); MEAN PLATELET VOLUME 10.2 fl (7.0-11.0); RBC 4.33 10^6/uL (3.5-6.1); RED CELL DISTRIBUTION WIDTH 15.3 % (11.5-14.5); WHITE BLOOD COUNT 8.5 10^3/ul (4.5-11.0)
[2018-02-04] MEDS: Insulin Reg-MEDIUM-Coverage SC SCH ×4 (07:45→23:19)
[2018-02-04 08:22] LABS: ALB/GLOB RATIO 1.1 (1.1-1.8); ALBUMIN 3.7 g/dL (3.0-4.8); ALT/SGPT 30 U/L (7-56); AST/SGOT 24 U/L (14-36); BLOOD UREA NITROGEN 16 mg/dL (7-21); CALCIUM 10.6 mg/dL (8.4-10.5); GFR AFRICAN-AMERICAN > 60; GFR NON-AFRICAN AMERICAN > 60
[2018-02-04] MEDS: Lactobacillus Acidophilus 500 MU Cap PO SCH (09:22)
[2018-02-04] MEDS: Enoxaparin 30 mg Syringe SC SCH (09:22)
--- NOTE | 2018-02-04 13:27 | PN ---
DATE: SUBJECTIVE: I saw her this morning in the hospital bed in the Psychiatric floor. She is much calmer today than yesterday. May be the medicine is starting to kick in. She has no complaints to me this morning. She is still on a one-to-one, still confused; on Ativan, Bacid, Colace, Feosol, folic acid, Geodon, insulin, Lovenox, Maalox, Macrobid, Milk of Magnesia, oxycodone, Seroquel, Sonata and Tylenol. She is here for schizoaffective disorder, UTI, dementia, leukocytosis, hallucination, change in mentation. PHYSICAL EXAMINATION: VITAL SIGNS: She has a 97.6 temperature, 87 pulse, 130/78 blood pressure, 20 respiratory rate, 90% O2 sat on room air. HEENT: Head is atraumatic, normocephalic. HEART: Regular rate. LUNGS: Decreased breath sounds. ABDOMEN: Soft, obese, nontender. EXTREMITIES: No edema. She would let me examine her today, yesterday she would not. LABORATORY DATA: She has an 8.5 white count, very good, the best it has been; 12.6 hemoglobin, 39.8 hematocrit with a 278 platelets. Sodium 151, potassium 4.3, she has to drink more water, BUN 16, creatinine 0.8, GFR is greater than 60, sugar is 102, calcium is 10.6, total bilirubin is 0.4, AST is 24, ALT is 30, alkaline phosphatase 194, total protein 7. ASSESSMENT AND PLAN: She is here for urinary tract infection and change in mentation and she is on antibiotics, which I think it is helping, the white count came down nicely. We will check her labs tomorrow one more time. Continue with the antibiotics and the medications for her mentation. I am also going to increase free water to help her high sodium and I will continue aggressive treatment and care as per Psychiatry. Tien Jaffe DO
--- NOTE | 2018-02-04 16:17 | CP.PCM.PN ---
Subjective - Date & Time of Evaluation Date of Evaluation: 02/04/18 Time of Evaluation: 16:14 - Subjective Subjective: Nephrology Consultation: Assessment: Stable Mild Hypernatremia and mild Hypercalcemia likely due to [place] as it can cause nephrogenic DI and hyperparathyroidism possible UTI elevated BP Bipolar disorder Plan No acute need for renal replacement therapy at this time. BP control acceptable for now pt to drink plenty of fluids/water. Discussed with the nursing staff to allow patient to have unrestricted access to water We'll also add water 250 mL every 4 hours scheduled dose hold vit D supplements for now Will consider calcimimetic as Sensipar if calcium stays elevated. Dose meds/antibiotics for normal GFR. Further work up/management as per primary team Thanks for allowing me to participate in care of your patient. Will follow patient with you. Please call if any Qs. d/w team Dr Jaquan Adams Office: [phone] Chief Complaint; unable reason for consult: electrolyte abnormalities source of Info: as per EMR HPI: Pt is a 62 F with hx of bipolar disorder, on lithium presented with complaints of behavioral changes and hallucinations. renal consult for electrolytes abnormality and UTI pt unable to provide much reliable hx ROS: Unable to obtain from the patient Physical Examination: General Appearance: Comfortable, in no acute respiratory distress, co-operative . Vitals reviewed and noted as below Head; Atraumatic, normocephalic ENT: no ulcers no thrush. Tongue is midline. Oropharynx: no rash or ulcers. EYES: Pupils are equal, round and reactive to light accommodation. Eye muscles and extraocular movement intact. Sclera is anicteric. Neck; supple no lymphadenopathy, no thyromegaly or bruit Lungs: Normal respiratory rate/effort. Breath sounds bilateral equal and clear Heart: Normal rate. s1s2 normal. No rub or gallop. Extremities: no edema. No varicose veins Neurological: Patient is alert, awake and disoriented. No focal deficit. Strength bilateral appropriate and equal Skin: Warm and dry. Normal turgor. No rash. Palpitation: Normal elasticity for age Abdomen: Abdomen is soft. Bowel sounds +. There is no abdominal tenderness, no guarding/rigidity no organomegaly Psych: lack insight and hallcuniations + MSK: no joint tenderness or swelling. Digits and nails normal, no deformity : kidney or bladder not palpable Labs/imaging reviewed. Past medical history, past surgical history, family history, social history, allergy reviewed and noted as below Family hx: no hx of CKD. Rest non-contributory Workup PTH 153 vitamin D level 25 urine osmolality 157 Objective - Vital Signs/Intake and Output Vital Signs (last 24 hours): Temp Pulse Resp BP Pulse Ox 97.9 F 80 20 134/78 98 02/04/18 07:00 02/04/18 07:00 02/04/18 07:00 02/04/18 07:00 02/01/18 15:23 - Medications Medications: Current Medications Acetaminophen (Tylenol 325mg Tab) 650 mg PO Q6H PRN PRN Reason: Pain, moderate (4-7) Al Hydrox/Mg Hydrox/Simethicone (Maalox Plus 30 Ml) 30 ml PO DAILY PRN PRN Reason: Indigestion / Heartburn Docusate Sodium (Colace) 100 mg PO BID [facility] Last Admin: 02/04/18 09:23 Dose: 100 mg Enoxaparin Sodium (Lovenox) 30 mg SC DAILY [facility] PRN Reason: Protocol Last Admin: 02/04/18 09:22 Dose: 30 mg Ferrous Sulfate (Feosol) 324 mg PO DAILY [facility] Last Admin: 02/04/18 09:24 Dose: 324 mg Folic Acid (Folic Acid) 1 mg PO DAILY [facility] Last Admin: 02/04/18 09:24 Dose: 1 mg Insulin Human Regular (Humulin R Med) 0 units SC ACHS [facility] PRN Reason: Protocol Last Admin: 02/04/18 12:00 Dose: Not Given Lactobacillus Acidophilus (Bacid Acidophilus) 1 cap PO DAILY [facility] Last Admin: 02/04/18 09:22 Dose: 1 cap Lorazepam (Ativan) 1 mg IM Q8H PRN; Protocol PRN Reason: Anxiety Lorazepam (Ativan) 1 mg PO Q6H PRN; Protocol PRN Reason: Anxiety Last Admin: 02/03/18 23:16 Dose: 1 mg Lorazepam (Ativan) 1 mg IM Q8 PRN PRN Reason: Agitation Magnesium Hydroxide (Milk Of Magnesia) 30 ml PO DAILY PRN PRN Reason: Constipation Nitrofurantoin Macrocrystals (Macrobid) 100 mg PO Q12 [facility] PRN Reason: Protocol Stop: 02/04/18 19:00 Last Admin: 02/04/18 05:36 Dose: 100 mg Oxycodone HCl (Oxycodone Immediate Release Tab) 5 mg PO Q4H PRN PRN Reason: Moderate to Severe Pain Quetiapine Fumarate (Seroquel) 150 mg PO [facility] PRN Reason: Protocol Zaleplon (Sonata) 5 mg PO HS [facility] Ziprasidone (Geodon Inj) 20 mg IM Q8H PRN; Protocol PRN Reason: Severe Agitation - Labs Labs: 02/04/18 07:15 02/04/18 07:15
--- NOTE | 2018-02-04 17:32 | PCM.PYCHPN ---
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 patient is too psychotic to understand Medical Problems: New UTI, pt had been at the assisted living facility at [facility], [place] since her ortho surgery 11/2017; anemia pt's PCP is Guido Feliz. Diagnostic Results: 02/02/18 06:50 02/02/18 06:50 Lab Results 02/03/18 11:51: POC Glucose (mg/dL) 97 02/03/18 09:13: POC Glucose (mg/dL) 160 H 02/02/18 23:20: Urine Osmolality 157 L, Ur Random Sodium 12 02/02/18 21:07: POC Glucose (mg/dL) 110 02/02/18 17:01: POC Glucose (mg/dL) 104 02/02/18 09:35: Phosphorus 3.4, Magnesium 2.8 H 02/02/18 09:35: 25-OH Vitamin D Total 25.4 L 02/02/18 09:35: Total Protein (PEP) 6.8, Albumin (PEP) 3.7 L, Xdlgt-3-Jnglhehbj 0.4 H, Muvru-1-Ayeyigdop 0.8, Kmhk-8-Zcakoqon 0.4, Hlbz-0-Msahofgz 0.3, Gamma Globulins 1.1, Abnorm Protein Band 1 TEST NOT PERFORMED, Abnorm Protein Band 2 TEST NOT PERFORMED, Abnorm Protein Band 3 TEST NOT PERFORMED, RANDOLPH & SPEP Interp See note, Serum Immunofixation Pending, Tot [place]/Lambda Ratio Pending, [place] Light Chain Anal Pending, Lambda Light Chain Anal Pending 02/02/18 09:35: PTH Intact Whole Molec 153 H 02/02/18 06:50: RPR Nonreactive 02/02/18 06:50: TSH 3rd Generation 1.05 02/02/18 06:50: Sodium 148, Potassium 3.7, Chloride 113 H, Carbon Dioxide 23, Anion Gap 17, BUN 20, Creatinine 1.0, Est GFR ( Amer) > 60, Est GFR (Non- Af Amer) 56, Random Glucose 115 H, Fasting Glucose 115 H, Calcium 10.7 H, Total Bilirubin 0.8, AST 29, ALT 32, Alkaline Phosphatase 219 H, Total Protein 7.4, Albumin 4.1, Globulin 3.3, Albumin/Globulin Ratio 1.2, Triglycerides 112, Cholesterol 174, LDL Cholesterol Direct 95, HDL Cholesterol 52 02/02/18 06:50: WBC 12.8 H, RBC 4.43, Hgb 12.6, Hct 40.4, MCV 91.2, MCH 28.4, MCHC 31.2, RDW 15.2 H, Plt Count 272, MPV 10.6, Gran % 79.0 H, Lymph % (Auto) 9.8 L, [place] % (Auto) 9.9 H, Eos % (Auto) 0.9 L, Baso % (Auto) 0.4, Gran # 10.09 H, Lymph # (Auto) 1.3, [place] # (Auto) 1.3 H, Eos # (Auto) 0.1, Baso # (Auto) 0.05 02/02/18 06:50: [place] 1.0 02/01/18 16:01: Urine Opiates Screen Negative, Urine Methadone Screen Negative, Ur Barbiturates Screen Negative, Ur Phencyclidine Scrn Negative, Ur Amphetamines Screen Negative, U Benzodiazepines Scrn Negative, U Oth Cocaine Metabols Negative, U Cannabinoids Screen Negative 02/01/18 16:01: Urine Color Yellow, Urine Appearance Sl cloudy, Urine pH 6.0, Ur Specific [place] 1.010, Urine Protein Negative, Urine Glucose (UA) Negative, Urine Ketones Negative, Urine Blood Small H, Urine Nitrate Negative, Urine Bilirubin Negative, Urine Urobilinogen 0.2, Ur Leukocyte Esterase Large H, Urine RBC 0 - 2, Urine WBC 10 - 15, Urine Bacteria Trace 02/01/18 13:47: [place] 1.5 H 02/01/18 13:47: Alcohol, Quantitative < 10 02/01/18 13:47: Salicylates < 1 L, Acetaminophen < 10.0 L 02/01/18 13:47: Sodium 144, Potassium 3.5 L, Chloride 109 H, Carbon Dioxide 25, Anion Gap 13, BUN 19, Creatinine 1.2, Est GFR ( Amer) 55, Est GFR (Non- Af Amer) 46, Random Glucose 112 H, Calcium 10.8 H, Total Bilirubin 0.5, AST 31, ALT 38, Alkaline Phosphatase 189 H, Total Protein 7.0, Albumin 3.9, Globulin 3.1 , Albumin/Globulin Ratio 1.3 02/01/18 13:47: WBC 15.0 H, RBC 4.39, Hgb 12.8, Hct 39.7, MCV 90.4, MCH 29.2, MCHC 32.2, RDW 15.0 H, Plt Count 242, MPV 10.0, Gran % 81.7 H, Lymph % (Auto) 8.3 L, [place] % (Auto) 9.5 H, Eos % (Auto) 0.3 L, Baso % (Auto) 0.2, Gran # 12.24 H, Lymph # (Auto) 1.2, [place] # (Auto) 1.4 H, Eos # (Auto) 0.0, Baso # (Auto) 0.03 Vital Signs Temp Pulse Resp BP Pulse Ox 02/03/18 07:34 97.6 F 87 20 130/78 02/02/18 16:00 106 H 121/71 02/02/18 07:33 98.0 F 57 L 20 146/84 02/01/18 22:00 20 02/01/18 15:23 104 H 18 151/87 H 98 02/01/18 13:14 98.3 F 98 H 18 138/78 99 Laboratory Results - last 24 hr 02/02/18 02/03/18 02/04/18 09:35 21:17 07:15 WBC 8.5 D RBC 4.33 Hgb 12.6 Hct 39.8 MCV 91.9 MCH 29.1 MCHC 31.7 RDW 15.3 H Plt Count 278 MPV 10.2 Sodium Potassium Chloride Carbon Dioxide Anion Gap BUN Creatinine Est GFR ( Amer) Est GFR (Non-Af Amer) POC Glucose (mg/dL) 154 H Random Glucose Calcium Total Bilirubin AST ALT Alkaline Phosphatase Total Protein Albumin Globulin Albumin/Globulin Ratio Serum Immunofixation Not detected Tot [place]/Lambda Ratio 2.28 [place] Light Chain Anal 239 Lambda Light Chain Anal 105 02/04/18 02/04/18 02/04/18 07:15 07:37 12:08 WBC RBC Hgb Hct MCV MCH MCHC RDW Plt Count MPV Sodium 151 H Potassium 4.3 Chloride 114 H Carbon Dioxide 27 Anion Gap 14 BUN 16 Creatinine 0.8 Est GFR ( Amer) > 60 Est GFR (Non-Af Amer) > 60 POC Glucose (mg/dL) 102 95 Random Glucose 112 H Calcium 10.6 H Total Bilirubin 0.4 AST 24 ALT 30 Alkaline Phosphatase 194 H Total Protein 7.0 Albumin 3.7 Globulin 3.3 Albumin/Globulin Ratio 1.1 Serum Immunofixation Tot [place]/Lambda Ratio [place] Light Chain Anal Lambda Light Chain Anal 02/04/18 16:11 WBC RBC Hgb Hct MCV MCH MCHC RDW Plt Count MPV Sodium Potassium Chloride Carbon Dioxide Anion Gap BUN Creatinine Est GFR ( Amer) Est GFR (Non-Af Amer) POC Glucose (mg/dL) 88 Random Glucose Calcium Total Bilirubin AST ALT Alkaline Phosphatase Total Protein Albumin Globulin Albumin/Globulin Ratio Serum Immunofixation Tot [place]/Lambda Ratio [place] Light Chain Anal Lambda Light Chain Anal Temp Pulse Resp BP Pulse Ox 97.9 F 80 20 134/78 98 02/04/18 07:00 02/04/18 07:00 02/04/18 07:00 02/04/18 07:00 02/01/18 15:23 DSM 5 Symptoms Update: shortly patient is 62-year- female, reported h/o Bipolar disorder, not known h/ o suicidal attempts, not known h/o psychiatric admissions, pt was transferred from the [facility] in [place] where she was getting subacute care for orthopedic surgery, pt was transferred from the facility for evaluation of disorganized, psychotic, agitated and aggressive behavior. As per report from the [facility] facility, pt was sexually preoccupied/constantly disrobing or walking around naked, pt was also responding to internal stimuli, pt also broke drawers in facility, was pouring water over other residents, previously pt was in assisted living, pt was able to sign consent for treatment. patient still has episodes of agitated, aggressive, behavior, but with some improvements, overnight patient was restless, was flipping the mattress from the bed, was telling that got is forcing her to do so, patient still is religiously preoccupied, disorganized, needs one-to-one observation. patient was seen insurance room, patient is resting in her bed, patient was repeating "I didn't do that, I didn't do that, I didn't do that, I was forced to , I was forced to, I was forced to" there is no option to have meaningful conversation. as per one-to-one patient ate, seems to have good appetite. As per staff report patient is religiously preoccupied, disorganized. Patient tolerates medications well, no side effects observed or reported. collateral information from patient's sister by social insurance specialist, patient was on lithium since age of 20 because patient was suicidal, patient has autistic son who was placed in the nursing home, patient's mother was her primary support about 6 years ago and since that time patient was decompensating, patient used to live with a sister, but sister was not able to take care of her and patient was placed in the shelter. patient was diagnosed with bipolar disorder and eventually schizoaffective disorder after giving to her son approximately in her early 20s. Impression: Schizoaffective disorder Rule out delirium due to general medical condition including UTI, lithium toxicity Medication Change: Yes (Seroquel was increased to 150 mg twice a day) Medical Record Reviewed: Yes Consults ordered or reviewed: medical consult appreciated, nephrology consult appreciated. discussed case with Dr. Adams 02/04/18, sodium was climbing up, we'll of course patient drinking plenty of water discussed with Dr. Jaffe 02/04/18, he shouldn't should continue antibiotics for another 5 days, last dose February 09 Mental Status Examination - Cognitive Function Memory: Impaired Attention: Poor Concentration: Poor Association: Loose Fund of Knowledge: Poor - Mood Mood: Depressed, Anxious - Affect Affect: Flat - Formal Thought Process Formal Thought Process: Delusions, Paranoia, Loosening of associations - Suicidal Ideation Suicidal Ideation: No - Homicidal Ideation Homicidal Ideation: No Goal/Treatment Plan - Goal/Treatment Plan Need for Continued Stay: Remain at risks for inpatient hospitalization, Severe depression anxiety, Discharge may exacerbated symptoms, Failed transitioning, Severe functional impairment Progress Toward Problem(s) and Goals/Treatment Plan: milieu/structure/supportive therapy Acetaminophen [Tylenol 325mg tab] 650 mg PO PRN Bisacodyl [Ducolax] 10 mg RC PRN PRN Celecoxib [CeleBREX] 100 mg PO BID nonformulary Cholecalciferol (Vitd3)/Vit K2 [D3 + K2 Dots 1,000 Units Tab] 2,000 iu PO DAILY as per medical team Docusate [Colace] 100 mg PO BID Ferrous Sulfate [Ferosul] 325 mg PO DAILY 02/01/18 Folic Acid 1 mg PO DAILY [place] Carbonate ER Tab [[place] Carbonate] 450 mg PO BID was stopped Magnesium Hydroxide [Milk Of Magnesia] 30 ml PO PRN PRN oxyCODONE 5 mg PO Q4H PRN seroquel 10mg po bid for psychosis ativan as needed geodon as needed sonata as needed nephrology and medical team involved SW consultation for discharge plan and social issues psychiatrist was contacted, awaiting for call back Family involvement Follow up on labs Will monitor closely Pt was educated about risk/benefits and alternatives of medications, coping strategies (safety plan, suicide prevention), relapse prevention, importance of follow up with psychiatrist and therapist, stay away from drugs/alcohol/smoking Estimated Date of D/C: 02/11/18
[2018-02-05 08:02] LABS: HEMOGLOBIN 12.9 g/dL (12.0-16.0); MEAN CELL VOLUME 92.3 fl (80.0-105.0); MEAN CORPUSCULAR HEMOGLOBIN 29.1 pg (25.0-35.0); MEAN CORPUSCULAR HGB CONC 31.5 g/dl (31.0-37.0); MEAN PLATELET VOLUME 10.1 fl (7.0-11.0); RBC 4.44 10^6/uL (3.5-6.1); RED CELL DISTRIBUTION WIDTH 15.2 % (11.5-14.5); WHITE BLOOD COUNT 8.6 10^3/ul (4.5-11.0)
[2018-02-05 08:14] LABS: ALB/GLOB RATIO 1.1 (1.1-1.8); ALBUMIN 3.6 g/dL (3.0-4.8); ALT/SGPT 29 U/L (7-56); AST/SGOT 23 U/L (14-36); BLOOD UREA NITROGEN 17 mg/dL (7-21); CALCIUM 10.1 mg/dL (8.4-10.5); GFR AFRICAN-AMERICAN > 60; GFR NON-AFRICAN AMERICAN > 60
[2018-02-05] MEDS: Enoxaparin 30 mg Syringe SC SCH (08:30)
[2018-02-05] MEDS: Lactobacillus Acidophilus 500 MU Cap PO SCH (08:30)
[2018-02-05] MEDS: Insulin Reg-MEDIUM-Coverage SC SCH ×3 (08:31→22:32)
--- NOTE | 2018-02-05 13:42 | PCM.PYCHPN ---
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 patient is too psychotic to understand Medical Problems: New UTI, pt had been at the assisted living facility at [facility] since her ortho surgery 11/2017; anemia pt's PCP is Guido Feliz. Diagnostic Results: 02/02/18 06:50 02/02/18 06:50 Lab Results 02/03/18 11:51: POC Glucose (mg/dL) 97 02/03/18 09:13: POC Glucose (mg/dL) 160 H 02/02/18 23:20: Urine Osmolality 157 L, Ur Random Sodium 12 02/02/18 21:07: POC Glucose (mg/dL) 110 02/02/18 17:01: POC Glucose (mg/dL) 104 02/02/18 09:35: Phosphorus 3.4, Magnesium 2.8 H 02/02/18 09:35: 25-OH Vitamin D Total 25.4 L 02/02/18 09:35: Total Protein (PEP) 6.8, Albumin (PEP) 3.7 L, Cdazu-1-Scekprdnz 0.4 H, Hutzx-9-Whvmlqauz 0.8, Mawj-0-Pcyrjmjf 0.4, Hwmj-2-Krjuujeb 0.3, Gamma Globulins 1.1, Abnorm Protein Band 1 TEST NOT PERFORMED, Abnorm Protein Band 2 TEST NOT PERFORMED, Abnorm Protein Band 3 TEST NOT PERFORMED, RANDOLPH & SPEP Interp See note, Serum Immunofixation Pending, Tot [place]/Lambda Ratio Pending, [place] Light Chain Anal Pending, Lambda Light Chain Anal Pending 02/02/18 09:35: PTH Intact Whole Molec 153 H 02/02/18 06:50: RPR Nonreactive 02/02/18 06:50: TSH 3rd Generation 1.05 02/02/18 06:50: Sodium 148, Potassium 3.7, Chloride 113 H, Carbon Dioxide 23, Anion Gap 17, BUN 20, Creatinine 1.0, Est GFR ( Amer) > 60, Est GFR (Non- Af Amer) 56, Random Glucose 115 H, Fasting Glucose 115 H, Calcium 10.7 H, Total Bilirubin 0.8, AST 29, ALT 32, Alkaline Phosphatase 219 H, Total Protein 7.4, Albumin 4.1, Globulin 3.3, Albumin/Globulin Ratio 1.2, Triglycerides 112, Cholesterol 174, LDL Cholesterol Direct 95, HDL Cholesterol 52 02/02/18 06:50: WBC 12.8 H, RBC 4.43, Hgb 12.6, Hct 40.4, MCV 91.2, MCH 28.4, MCHC 31.2, RDW 15.2 H, Plt Count 272, MPV 10.6, Gran % 79.0 H, Lymph % (Auto) 9.8 L, [place] % (Auto) 9.9 H, Eos % (Auto) 0.9 L, Baso % (Auto) 0.4, Gran # 10.09 H, Lymph # (Auto) 1.3, [place] # (Auto) 1.3 H, Eos # (Auto) 0.1, Baso # (Auto) 0.05 02/02/18 06:50: [place] 1.0 02/01/18 16:01: Urine Opiates Screen Negative, Urine Methadone Screen Negative, Ur Barbiturates Screen Negative, Ur Phencyclidine Scrn Negative, Ur Amphetamines Screen Negative, U Benzodiazepines Scrn Negative, U Oth Cocaine Metabols Negative, U Cannabinoids Screen Negative 02/01/18 16:01: Urine Color Yellow, Urine Appearance Sl cloudy, Urine pH 6.0, Ur Specific [place] 1.010, Urine Protein Negative, Urine Glucose (UA) Negative, Urine Ketones Negative, Urine Blood Small H, Urine Nitrate Negative, Urine Bilirubin Negative, Urine Urobilinogen 0.2, Ur Leukocyte Esterase Large H, Urine RBC 0 - 2, Urine WBC 10 - 15, Urine Bacteria Trace 02/01/18 13:47: [place] 1.5 H 02/01/18 13:47: Alcohol, Quantitative < 10 02/01/18 13:47: Salicylates < 1 L, Acetaminophen < 10.0 L 02/01/18 13:47: Sodium 144, Potassium 3.5 L, Chloride 109 H, Carbon Dioxide 25, Anion Gap 13, BUN 19, Creatinine 1.2, Est GFR ( Amer) 55, Est GFR (Non- Af Amer) 46, Random Glucose 112 H, Calcium 10.8 H, Total Bilirubin 0.5, AST 31, ALT 38, Alkaline Phosphatase 189 H, Total Protein 7.0, Albumin 3.9, Globulin 3.1 , Albumin/Globulin Ratio 1.3 02/01/18 13:47: WBC 15.0 H, RBC 4.39, Hgb 12.8, Hct 39.7, MCV 90.4, MCH 29.2, MCHC 32.2, RDW 15.0 H, Plt Count 242, MPV 10.0, Gran % 81.7 H, Lymph % (Auto) 8.3 L, [place] % (Auto) 9.5 H, Eos % (Auto) 0.3 L, Baso % (Auto) 0.2, Gran # 12.24 H, Lymph # (Auto) 1.2, [place] # (Auto) 1.4 H, Eos # (Auto) 0.0, Baso # (Auto) 0.03 Vital Signs Temp Pulse Resp BP Pulse Ox 02/03/18 07:34 97.6 F 87 20 130/78 02/02/18 16:00 106 H 121/71 02/02/18 07:33 98.0 F 57 L 20 146/84 02/01/18 22:00 20 02/01/18 15:23 104 H 18 151/87 H 98 02/01/18 13:14 98.3 F 98 H 18 138/78 99 Laboratory Results - last 24 hr 02/02/18 02/03/18 02/04/18 09:35 21:17 07:15 WBC 8.5 D RBC 4.33 Hgb 12.6 Hct 39.8 MCV 91.9 MCH 29.1 MCHC 31.7 RDW 15.3 H Plt Count 278 MPV 10.2 Sodium Potassium Chloride Carbon Dioxide Anion Gap BUN Creatinine Est GFR ( Amer) Est GFR (Non-Af Amer) POC Glucose (mg/dL) 154 H Random Glucose Calcium Total Bilirubin AST ALT Alkaline Phosphatase Total Protein Albumin Globulin Albumin/Globulin Ratio Serum Immunofixation Not detected Tot [place]/Lambda Ratio 2.28 [place] Light Chain Anal 239 Lambda Light Chain Anal 105 02/04/18 02/04/18 02/04/18 07:15 07:37 12:08 WBC RBC Hgb Hct MCV MCH MCHC RDW Plt Count MPV Sodium 151 H Potassium 4.3 Chloride 114 H Carbon Dioxide 27 Anion Gap 14 BUN 16 Creatinine 0.8 Est GFR ( Amer) > 60 Est GFR (Non-Af Amer) > 60 POC Glucose (mg/dL) 102 95 Random Glucose 112 H Calcium 10.6 H Total Bilirubin 0.4 AST 24 ALT 30 Alkaline Phosphatase 194 H Total Protein 7.0 Albumin 3.7 Globulin 3.3 Albumin/Globulin Ratio 1.1 Serum Immunofixation Tot [place]/Lambda Ratio [place] Light Chain Anal Lambda Light Chain Anal 02/04/18 16:11 WBC RBC Hgb Hct MCV MCH MCHC RDW Plt Count MPV Sodium Potassium Chloride Carbon Dioxide Anion Gap BUN Creatinine Est GFR ( Amer) Est GFR (Non-Af Amer) POC Glucose (mg/dL) 88 Random Glucose Calcium Total Bilirubin AST ALT Alkaline Phosphatase Total Protein Albumin Globulin Albumin/Globulin Ratio Serum Immunofixation Tot [place]/Lambda Ratio [place] Light Chain Anal Lambda Light Chain Anal Temp Pulse Resp BP Pulse Ox 97.9 F 80 20 134/78 98 02/04/18 07:00 02/04/18 07:00 02/04/18 07:00 02/04/18 07:00 02/01/18 15:23 DSM 5 Symptoms Update: shortly patient is 62-year- female, reported h/o Bipolar disorder, not known h/ o suicidal attempts, not known h/o psychiatric admissions, pt was transferred from the [facility] in [place] where she was getting subacute care for orthopedic surgery, pt was transferred from the facility for evaluation of disorganized, psychotic, agitated and aggressive behavior. As per report from the [place] facility, pt was sexually preoccupied/constantly disrobing or walking around naked, pt was also responding to internal stimuli, pt also broke drawers in facility, was pouring water over other residents, previously pt was in assisted living, pt was able to sign consent for treatment. patient still has episodes of agitated, aggressive, behavior, today patient was fighting with one to one sitter, patient was demanding to walk, patient is very high risk of falls, unsteady gait. patient was psychotic overnight, thought that one-to-one sitter is "devil", patient was disruptive, screaming out loud. patient still is religiously preoccupied, disorganized, needs one-to-one observation. patient was seen in her room, no meaningful conversation possible. patient tolerated medications well, no side effects observed or reported, aims 0 , no EPS. Impression: Schizoaffective disorder Rule out delirium due to general medical condition including UTI, lithium toxicity Medication Change: Yes (Seroquel was increased to 200 mg twice a day, depakote implemented) Medical Record Reviewed: Yes Consults ordered or reviewed: medical consult appreciated, nephrology consult appreciated. discussed case with Dr. Adams 02/04/18, sodium was climbing up, we'll of course patient drinking plenty of water discussed with Dr. Jaffe 02/04/18, he shouldn't should continue antibiotics for another 5 days, last dose February 09 Mental Status Examination - Cognitive Function Memory: Impaired Attention: Poor Concentration: Poor Association: Loose Fund of Knowledge: Poor - Mood Mood: Depressed, Anxious - Affect Affect: Flat - Formal Thought Process Formal Thought Process: Delusions, Paranoia, Loosening of associations - Suicidal Ideation Suicidal Ideation: No - Homicidal Ideation Homicidal Ideation: No Goal/Treatment Plan - Goal/Treatment Plan Need for Continued Stay: Remain at risks for inpatient hospitalization, Severe depression anxiety, Discharge may exacerbated symptoms, Failed transitioning, Severe functional impairment Progress Toward Problem(s) and Goals/Treatment Plan: milieu/structure/supportive therapy Acetaminophen [Tylenol 325mg tab] 650 mg PO PRN Bisacodyl [Ducolax] 10 mg RC PRN PRN Celecoxib [CeleBREX] 100 mg PO BID nonformulary Cholecalciferol (Vitd3)/Vit K2 [D3 + K2 Dots 1,000 Units Tab] 2,000 iu PO DAILY as per medical team Docusate [Colace] 100 mg PO BID Ferrous Sulfate [Ferosul] 325 mg PO DAILY 02/01/18 Folic Acid 1 mg PO DAILY [place] Carbonate ER Tab [[place] Carbonate] 450 mg PO BID was stopped Magnesium Hydroxide [Milk Of Magnesia] 30 ml PO PRN PRN oxyCODONE 5 mg PO Q4H PRN seroquel 200mg po bid for psychosis depakote 250mg po bid for mood stabilization ativan as needed geodon as needed sonata as needed nephrology and medical team involved SW consultation for discharge plan and social issues psychiatrist was contacted, awaiting for call back Family involvement Follow up on labs Will monitor closely Pt was educated about risk/benefits and alternatives of medications, coping strategies (safety plan, suicide prevention), relapse prevention, importance of follow up with psychiatrist and therapist, stay away from drugs/alcohol/smoking Estimated Date of D/C: 02/11/18
[2018-02-05] MEDS: Divalproex 250 mg DR (BID formulation) PO SCH (15:33)
--- NOTE | 2018-02-05 16:15 | PN ---
SUBJECTIVE: I saw her in the Psych Unit in the hospital bed, resting comfortably. She did get out and went to breakfast this morning. She is much calmer than she was. She is not yelling and screaming as much. She is still on one-to-one. She is alert and comfortable, no pain, no chest pain or shortness of breath, and looking at me. She is on Ativan, Bacid, Colace, Feosol, folic acid, Geodon, insulin coverage, Lovenox, Maalox, milk of magnesia, oxycodone, Seroquel, Sonata, and Tylenol. OBJECTIVE: VITAL SIGNS: Temperature 97.4, pulse 102, blood pressure 128/82, respiratory rate 20. HEAD: Atraumatic, normocephalic. HEART: Regular rate. LUNGS: Decreased breath sounds but clear to auscultation. ABDOMEN: Soft, obese, nontender. EXTREMITIES: No edema. LABORATORY DATA: She has 8.6 white count, 12.9 hemoglobin, 41 hematocrit, 281 platelets, 146 sodium, potassium 4.3, BUN 17, creatinine 0.8, GFR is greater than 60, sugar is 98, calcium is 10.1, total bilirubin is 0.3, AST is 23, ALT is 29, alkaline phosphatase 170, total protein 6.9, albumin is 3.6. Urine showed large esterase. She did have a UTI. She is on medications for that. RPR was nonreactive. She is being seen by [facility]. ASSESSMENT AND PLAN: Overall, she had urinary tract infection, mild, high sodium, high calcium which is also mild, and bipolar. We will continue aggressive treatment and care. We will check her labs tomorrow. Tien Jaffe DO
[2018-02-06] MEDS: Enoxaparin 30 mg Syringe SC SCH (08:00)
[2018-02-06] MEDS: Divalproex 250 mg DR (BID formulation) PO SCH ×2 (08:00→15:14)
[2018-02-06] MEDS: Lactobacillus Acidophilus 500 MU Cap PO SCH (08:02)
[2018-02-06 08:22] LABS: ALB/GLOB RATIO 1.1 (1.1-1.8); ALBUMIN 3.5 g/dL (3.0-4.8); ALT/SGPT 45 U/L (7-56); AST/SGOT 32 U/L (14-36); BLOOD UREA NITROGEN 16 mg/dL (7-21); GFR AFRICAN-AMERICAN > 60; GFR NON-AFRICAN AMERICAN > 60
[2018-02-06] MEDS: Insulin Reg-MEDIUM-Coverage SC SCH ×4 (08:27→22:00)
[2018-02-06 08:33] LABS: HEMOGLOBIN 12.5 g/dL (12.0-16.0); MEAN CELL VOLUME 91.6 fl (80.0-105.0); MEAN CORPUSCULAR HEMOGLOBIN 29.1 pg (25.0-35.0); MEAN CORPUSCULAR HGB CONC 31.8 g/dl (31.0-37.0); MEAN PLATELET VOLUME 10.6 fl (7.0-11.0); RBC 4.29 10^6/uL (3.5-6.1); RED CELL DISTRIBUTION WIDTH 15.1 % (11.5-14.5); WHITE BLOOD COUNT 6.5 10^3/ul (4.5-11.0)
--- NOTE | 2018-02-06 13:30 | PCM.PYCHPN ---
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 patient is too psychotic to understand Medical Problems: New UTI, pt had been at the assisted living facility at [facility] since her ortho surgery 11/2017; anemia pt's PCP is Guido Feliz. Diagnostic Results: 02/02/18 06:50 02/02/18 06:50 Lab Results 02/03/18 11:51: POC Glucose (mg/dL) 97 02/03/18 09:13: POC Glucose (mg/dL) 160 H 02/02/18 23:20: Urine Osmolality 157 L, Ur Random Sodium 12 02/02/18 21:07: POC Glucose (mg/dL) 110 02/02/18 17:01: POC Glucose (mg/dL) 104 02/02/18 09:35: Phosphorus 3.4, Magnesium 2.8 H 02/02/18 09:35: 25-OH Vitamin D Total 25.4 L 02/02/18 09:35: Total Protein (PEP) 6.8, Albumin (PEP) 3.7 L, Uprtv-6-Epwbcvcyq 0.4 H, Bgcji-8-Tjnaroias 0.8, Swwp-1-Ntjjczwq 0.4, Tcun-9-Ebrfzyta 0.3, Gamma Globulins 1.1, Abnorm Protein Band 1 TEST NOT PERFORMED, Abnorm Protein Band 2 TEST NOT PERFORMED, Abnorm Protein Band 3 TEST NOT PERFORMED, RANDOLPH & SPEP Interp See note, Serum Immunofixation Pending, Tot [place]/Lambda Ratio Pending, [place] Light Chain Anal Pending, Lambda Light Chain Anal Pending 02/02/18 09:35: PTH Intact Whole Molec 153 H 02/02/18 06:50: RPR Nonreactive 02/02/18 06:50: TSH 3rd Generation 1.05 02/02/18 06:50: Sodium 148, Potassium 3.7, Chloride 113 H, Carbon Dioxide 23, Anion Gap 17, BUN 20, Creatinine 1.0, Est GFR ( Amer) > 60, Est GFR (Non- Af Amer) 56, Random Glucose 115 H, Fasting Glucose 115 H, Calcium 10.7 H, Total Bilirubin 0.8, AST 29, ALT 32, Alkaline Phosphatase 219 H, Total Protein 7.4, Albumin 4.1, Globulin 3.3, Albumin/Globulin Ratio 1.2, Triglycerides 112, Cholesterol 174, LDL Cholesterol Direct 95, HDL Cholesterol 52 02/02/18 06:50: WBC 12.8 H, RBC 4.43, Hgb 12.6, Hct 40.4, MCV 91.2, MCH 28.4, MCHC 31.2, RDW 15.2 H, Plt Count 272, MPV 10.6, Gran % 79.0 H, Lymph % (Auto) 9.8 L, [place] % (Auto) 9.9 H, Eos % (Auto) 0.9 L, Baso % (Auto) 0.4, Gran # 10.09 H, Lymph # (Auto) 1.3, [place] # (Auto) 1.3 H, Eos # (Auto) 0.1, Baso # (Auto) 0.05 02/02/18 06:50: [place] 1.0 02/01/18 16:01: Urine Opiates Screen Negative, Urine Methadone Screen Negative, Ur Barbiturates Screen Negative, Ur Phencyclidine Scrn Negative, Ur Amphetamines Screen Negative, U Benzodiazepines Scrn Negative, U Oth Cocaine Metabols Negative, U Cannabinoids Screen Negative 02/01/18 16:01: Urine Color Yellow, Urine Appearance Sl cloudy, Urine pH 6.0, Ur Specific [place] 1.010, Urine Protein Negative, Urine Glucose (UA) Negative, Urine Ketones Negative, Urine Blood Small H, Urine Nitrate Negative, Urine Bilirubin Negative, Urine Urobilinogen 0.2, Ur Leukocyte Esterase Large H, Urine RBC 0 - 2, Urine WBC 10 - 15, Urine Bacteria Trace 02/01/18 13:47: [place] 1.5 H 02/01/18 13:47: Alcohol, Quantitative < 10 02/01/18 13:47: Salicylates < 1 L, Acetaminophen < 10.0 L 02/01/18 13:47: Sodium 144, Potassium 3.5 L, Chloride 109 H, Carbon Dioxide 25, Anion Gap 13, BUN 19, Creatinine 1.2, Est GFR ( Amer) 55, Est GFR (Non- Af Amer) 46, Random Glucose 112 H, Calcium 10.8 H, Total Bilirubin 0.5, AST 31, ALT 38, Alkaline Phosphatase 189 H, Total Protein 7.0, Albumin 3.9, Globulin 3.1 , Albumin/Globulin Ratio 1.3 02/01/18 13:47: WBC 15.0 H, RBC 4.39, Hgb 12.8, Hct 39.7, MCV 90.4, MCH 29.2, MCHC 32.2, RDW 15.0 H, Plt Count 242, MPV 10.0, Gran % 81.7 H, Lymph % (Auto) 8.3 L, [place] % (Auto) 9.5 H, Eos % (Auto) 0.3 L, Baso % (Auto) 0.2, Gran # 12.24 H, Lymph # (Auto) 1.2, [place] # (Auto) 1.4 H, Eos # (Auto) 0.0, Baso # (Auto) 0.03 Vital Signs Temp Pulse Resp BP Pulse Ox 02/03/18 07:34 97.6 F 87 20 130/78 02/02/18 16:00 106 H 121/71 02/02/18 07:33 98.0 F 57 L 20 146/84 02/01/18 22:00 20 02/01/18 15:23 104 H 18 151/87 H 98 02/01/18 13:14 98.3 F 98 H 18 138/78 99 Laboratory Results - last 24 hr 02/02/18 02/03/18 02/04/18 09:35 21:17 07:15 WBC 8.5 D RBC 4.33 Hgb 12.6 Hct 39.8 MCV 91.9 MCH 29.1 MCHC 31.7 RDW 15.3 H Plt Count 278 MPV 10.2 Sodium Potassium Chloride Carbon Dioxide Anion Gap BUN Creatinine Est GFR ( Amer) Est GFR (Non-Af Amer) POC Glucose (mg/dL) 154 H Random Glucose Calcium Total Bilirubin AST ALT Alkaline Phosphatase Total Protein Albumin Globulin Albumin/Globulin Ratio Serum Immunofixation Not detected Tot [place]/Lambda Ratio 2.28 [place] Light Chain Anal 239 Lambda Light Chain Anal 105 02/04/18 02/04/18 02/04/18 07:15 07:37 12:08 WBC RBC Hgb Hct MCV MCH MCHC RDW Plt Count MPV Sodium 151 H Potassium 4.3 Chloride 114 H Carbon Dioxide 27 Anion Gap 14 BUN 16 Creatinine 0.8 Est GFR ( Amer) > 60 Est GFR (Non-Af Amer) > 60 POC Glucose (mg/dL) 102 95 Random Glucose 112 H Calcium 10.6 H Total Bilirubin 0.4 AST 24 ALT 30 Alkaline Phosphatase 194 H Total Protein 7.0 Albumin 3.7 Globulin 3.3 Albumin/Globulin Ratio 1.1 Serum Immunofixation Tot [place]/Lambda Ratio [place] Light Chain Anal Lambda Light Chain Anal 02/04/18 16:11 WBC RBC Hgb Hct MCV MCH MCHC RDW Plt Count MPV Sodium Potassium Chloride Carbon Dioxide Anion Gap BUN Creatinine Est GFR ( Amer) Est GFR (Non-Af Amer) POC Glucose (mg/dL) 88 Random Glucose Calcium Total Bilirubin AST ALT Alkaline Phosphatase Total Protein Albumin Globulin Albumin/Globulin Ratio Serum Immunofixation Tot [place]/Lambda Ratio [place] Light Chain Anal Lambda Light Chain Anal Temp Pulse Resp BP Pulse Ox 97.9 F 80 20 134/78 98 02/04/18 07:00 02/04/18 07:00 02/04/18 07:00 02/04/18 07:00 02/01/18 15:23 Abnormal Lab Results 02/05/18 02/05/18 02/06/18 16:26 21:13 07:00 WBC 6.5 D RBC 4.29 Hgb 12.5 Hct 39.3 MCV 91.6 MCH 29.1 MCHC 31.8 RDW 15.1 H Plt Count 260 MPV 10.6 Sodium Potassium Chloride Carbon Dioxide Anion Gap BUN Creatinine Est GFR ( Amer) Est GFR (Non-Af Amer) POC Glucose (mg/dL) 98 99 Random Glucose Calcium Total Bilirubin AST ALT Alkaline Phosphatase Total Protein Albumin Globulin Albumin/Globulin Ratio 02/06/18 02/06/18 02/06/18 07:00 07:40 11:06 WBC RBC Hgb Hct MCV MCH MCHC RDW Plt Count MPV Sodium 145 Potassium 4.1 Chloride 109 H Carbon Dioxide 30 Anion Gap 10 BUN 16 Creatinine 0.8 Est GFR ( Amer) > 60 Est GFR (Non-Af Amer) > 60 POC Glucose (mg/dL) 85 93 Random Glucose 100 Calcium 10.0 Total Bilirubin 0.4 AST 32 ALT 45 Alkaline Phosphatase 203 H Total Protein 6.6 Albumin 3.5 Globulin 3.1 Albumin/Globulin Ratio 1.1 Temp Pulse Resp BP Pulse Ox 97.3 F L 94 H 20 145/84 98 02/06/18 07:53 02/06/18 07:53 02/06/18 07:53 02/06/18 07:53 02/01/18 15:23 DSM 5 Symptoms Update: shortly patient is 62-year- female, reported h/o Bipolar disorder, not known h/ o suicidal attempts, not known h/o psychiatric admissions, pt was transferred from the [facility] in [place] where she was getting subacute care for orthopedic surgery, pt was transferred from the facility for evaluation of disorganized, psychotic, agitated and aggressive behavior. As per report from the [facility] facility, pt was sexually preoccupied/constantly disrobing or walking around naked, pt was also responding to internal stimuli, pt also broke drawers in facility, was pouring water over other residents, previously pt was in assisted living, pt was able to sign consent for treatment. patient still has episodes of agitated, aggressive, behavior, today patient was fighting with one to one sitter, "I hate this woman, take her away...aaaa". patient was demanding to walk, patient is very high risk of falls, unsteady gait. patient was psychotic overnight, pt paranoid towards sitters, patient was disruptive, screaming out loud. patient still is religiously preoccupied, disorganized, needs one-to-one observation. patient tolerated medications well, no side effects observed or reported, aims 0 , no EPS. pt is tachy, may be in pain that is why she is very agitated, will give scheduled dose of oxy, will f/u, pt is not able to ask for pain meds Impression: Schizoaffective disorder Rule out delirium due to general medical condition including UTI, lithium toxicity Medication Change: Yes (seroquel increased, depakote and sonata increased) Medical Record Reviewed: Yes Consults ordered or reviewed: medical consult appreciated, nephrology consult appreciated. discussed case with Dr. Adams 02/04/18, sodium was climbing up, we'll of course patient drinking plenty of water discussed with Dr. Jaffe 02/04/18, he shouldn't should continue antibiotics for another 5 days, last dose February 09 current labs are better Mental Status Examination - Cognitive Function Orientation: Person Memory: Impaired Attention: Poor Concentration: Poor Association: Loose Fund of Knowledge: Poor - Mood Mood: Depressed, Anxious - Affect Affect: Flat - Formal Thought Process Formal Thought Process: Delusions, Paranoia, Loosening of associations - Suicidal Ideation Suicidal Ideation: No - Homicidal Ideation Homicidal Ideation: No Goal/Treatment Plan - Goal/Treatment Plan Need for Continued Stay: Remain at risks for inpatient hospitalization, Severe depression anxiety, Discharge may exacerbated symptoms, Failed transitioning, Severe functional impairment Progress Toward Problem(s) and Goals/Treatment Plan: milieu/structure/supportive therapy Acetaminophen [Tylenol 325mg tab] 650 mg PO PRN Bisacodyl [Ducolax] 10 mg RC PRN PRN Celecoxib [CeleBREX] 100 mg PO BID nonformulary Cholecalciferol (Vitd3)/Vit K2 [D3 + K2 Dots 1,000 Units Tab] 2,000 iu PO DAILY as per medical team Docusate [Colace] 100 mg PO BID Ferrous Sulfate [Ferosul] 325 mg PO DAILY 02/01/18 Folic Acid 1 mg PO DAILY [place] Carbonate ER Tab [[place] Carbonate] 450 mg PO BID was stopped Magnesium Hydroxide [Milk Of Magnesia] 30 ml PO PRN PRN oxyCODONE 5 mg PO Q4H PRN oxycodone 5mg po bid will be started, pt was on celebrex which is nonformulary seroquel 200mg po am and 300mg po hs for psychosis depakote 250mg po bid and hs for mood stabilization ativan as needed geodon as needed sonata as needed nephrology and medical team involved SW consultation for discharge plan and social issues psychiatrist was contacted, awaiting for call back Family involvement Follow up on labs Will monitor closely Pt was educated about risk/benefits and alternatives of medications, coping strategies (safety plan, suicide prevention), relapse prevention, importance of follow up with psychiatrist and therapist, stay away from drugs/alcohol/smoking Estimated Date of D/C: 02/11/18
[2018-02-06] MEDS: oxyCODONE 5 mg Immediate Release Tab PO SCH (15:13)
--- NOTE | 2018-02-06 18:47 | PN ---
DATE: SUBJECTIVE: I saw her sleeping in her bed this morning with a one-to-one. She had a rough morning and was told, but she is doing better now. She is on Ativan, Bacid, Colace, Depakote, Feosol, folic acid, Geodon, insulin, Lovenox, Maalox, milk of magnesia, oxycodone, Seroquel, Sonata, and Tylenol. OBJECTIVE: VITAL SIGNS: Temperature 97.3, 94 pulse, 145/84 blood pressure, 20 respiratory rate. HEENT: Head is atraumatic, normocephalic. She is alert, talking, calm at this time. Easily awakable. HEART: Regular rate. LUNGS: Decreased breath sounds. ABDOMEN: Soft, obese. EXTREMITIES: No edema. LABORATORY DATA: She has a 6.5 white count, 12.5 hemoglobin, 39.3 hematocrit with 260 platelets. Sodium 145, potassium 4.1. BUN 16, creatinine 0.8. GFR is greater than 60. Sugar is 100. Calcium is 10. Total bili is 0.4, AST 32, ALT is 45, alk phos 203. Total protein 6.6, albumin is 3.5. She is being seen by Psychiatry. We will continue with aggressive treatment and care. We will see if she can get out of bed to chair if it is possible if physical therapy involved. Tien Jaffe DO
[2018-02-06] MEDS: Divalproex 250 mg ER (ONCE DAILY formulation) PO SCH (21:27)
[2018-02-06] MEDS ORDERED: Divalproex 250 mg DR (BID formulation) PO SCH (22:00)
[2018-02-07 06:42] LABS: HEMOGLOBIN 12.5 g/dL (12.0-16.0); MEAN CELL VOLUME 92.1 fl (80.0-105.0); MEAN CORPUSCULAR HEMOGLOBIN 28.9 pg (25.0-35.0); MEAN CORPUSCULAR HGB CONC 31.4 g/dl (31.0-37.0); MEAN PLATELET VOLUME 10.4 fl (7.0-11.0); RBC 4.32 10^6/uL (3.5-6.1); RED CELL DISTRIBUTION WIDTH 15.2 % (11.5-14.5); WHITE BLOOD COUNT 5.7 10^3/ul (4.5-11.0)
[2018-02-07 07:21] LABS: ALB/GLOB RATIO 1.2 (1.1-1.8); ALBUMIN 3.6 g/dL (3.0-4.8); ALT/SGPT 53 U/L (7-56); AST/SGOT 30 U/L (14-36); BLOOD UREA NITROGEN 15 mg/dL (7-21); CALCIUM 9.8 mg/dL (8.4-10.5); GFR AFRICAN-AMERICAN > 60; GFR NON-AFRICAN AMERICAN > 60
[2018-02-07] MEDS: Insulin Reg-MEDIUM-Coverage SC SCH ×4 (09:56→21:01)
[2018-02-07] MEDS: Lactobacillus Acidophilus 500 MU Cap PO SCH (10:01)
[2018-02-07] MEDS: oxyCODONE 5 mg Immediate Release Tab PO SCH ×2 (10:01→19:18)
[2018-02-07] MEDS: Divalproex 250 mg DR (BID formulation) PO SCH ×2 (10:01→19:18)
[2018-02-07] MEDS: Enoxaparin 30 mg Syringe SC SCH (10:02)
--- NOTE | 2018-02-07 10:44 | PN ---
DATE: SUBJECTIVE: I saw her sitting out of bed to chair and in the dining room eating her breakfast. She is actually calm and doing quite well. She is on Ativan, Bacid, Colace, Depakote, Feosol, folic acid, Geodon, insulin, Lovenox, Maalox, milk of magnesia, oxycodone, Prolixin, Seroquel, Sonata and Tylenol. PHYSICAL EXAMINATION: VITAL SIGNS: She has 98.3 temp; 86 pulse; 77/47 blood pressure that was quite low, but it was 118/64 before that; 20 respiratory rate. HEENT: Head is atraumatic, normocephalic. HEART: Regular rate. LUNGS: Decreased breath sounds. MEDICATIONS: She is on no medication for blood pressure. LABORATORY DATA: She has a 5.7 white count, 12.5 hemoglobin, 39.8 hematocrit with a 237 platelets. She has a 144 sodium, potassium is 4.6, chloride is 110, BUN is 50, creatinine 0.8, GFR is greater than 60, sugar is 95, calcium is 9.8, total bili is 0.4, AST is 30, ALT is 53, alk phos 195, total protein 6.7. ASSESSMENT AND PLAN: I will continue to follow. I think emotionally and mentally, she is improving. She did have high sodium, urinary tract infection and bipolar. Continue with aggressive treatment by Psychiatry. Tien Jaffe DO
--- NOTE | 2018-02-07 14:48 | CP.PCM.PN ---
Subjective - Date & Time of Evaluation Date of Evaluation: 02/07/18 Time of Evaluation: 14:46 - Subjective Subjective: Nephrology Consultation: Assessment: Stable Mild Hypernatremia and mild Hypercalcemia likely due to [place] as it can cause nephrogenic DI and hyperparathyroidism possible UTI elevated BP Bipolar disorder Plan No acute need for renal replacement therapy at this time. BP control acceptable for now pt to drink plenty of fluids/water. Discussed with the nursing staff to allow patient to have unrestricted access to water We'll also add water 250 mL every 4 hours scheduled dose hold vit D supplements for now Will consider calcimimetic as Sensipar if calcium stays elevated. Ca better for now Dose meds/antibiotics for normal GFR. Further work up/management as per primary team Re: medications from psychiatry perspective, consider alternative medications to lithium considering current complications likely due to [place] (as mentioned above). If need to use, consider it with amiloride and with close monitoring of [place] levels. Thanks for allowing me to participate in care of your patient. Will follow patient with you. Please call if any Qs. d/w team Dr Jaquan Adams Office: [phone] Chief Complaint; unable reason for consult: electrolyte abnormalities source of Info: as per EMR HPI: Pt is a 62 F with hx of bipolar disorder, on lithium presented with complaints of behavioral changes and hallucinations. renal consult for electrolytes abnormality and UTI pt unable to provide much reliable hx ROS: Unable to obtain from the patient Physical Examination: General Appearance: Comfortable, in no acute respiratory distress, co-operative . Vitals reviewed and noted as below Head; Atraumatic, normocephalic ENT: no ulcers no thrush. Tongue is midline. Oropharynx: no rash or ulcers. EYES: Pupils are equal, round and reactive to light accommodation. Eye muscles and extraocular movement intact. Sclera is anicteric. Neck; supple no lymphadenopathy, no thyromegaly or bruit Lungs: Normal respiratory rate/effort. Breath sounds bilateral equal and clear Heart: Normal rate. s1s2 normal. No rub or gallop. Extremities: no edema. No varicose veins Neurological: Patient is alert, awake and disoriented. No focal deficit. Strength bilateral appropriate and equal Skin: Warm and dry. Normal turgor. No rash. Palpitation: Normal elasticity for age Abdomen: Abdomen is soft. Bowel sounds +. There is no abdominal tenderness, no guarding/rigidity no organomegaly Psych: lack insight and hallucinations + MSK: no joint tenderness or swelling. Digits and nails normal, no deformity : kidney or bladder not palpable Labs/imaging reviewed. Past medical history, past surgical history, family history, social history, allergy reviewed and noted as below Family hx: no hx of CKD. Rest non-contributory Workup PTH 153 vitamin D level 25 urine osmolality 157 Objective - Vital Signs/Intake and Output Vital Signs (last 24 hours): Temp Pulse Resp BP Pulse Ox 98.3 F 86 20 77/47 L 98 02/07/18 07:37 02/07/18 07:37 02/07/18 07:37 02/07/18 07:37 02/01/18 15:23 - Medications Medications: Current Medications Acetaminophen (Tylenol 325mg Tab) 650 mg PO Q6H PRN PRN Reason: Pain, moderate (4-7) Al Hydrox/Mg Hydrox/Simethicone (Maalox Plus 30 Ml) 30 ml PO DAILY PRN PRN Reason: Indigestion / Heartburn Chlorpromazine (Thorazine) 50 mg PO BID [facility] PRN Reason: Protocol Chlorpromazine (Thorazine) 50 mg PO HS [facility] PRN Reason: Protocol Chlorpromazine (Thorazine) 25 mg IM BID PRN; Protocol PRN Reason: severe agitation Divalproex Sodium (Depakote Dr (*Bid*)) 250 mg PO BID [facility] PRN Reason: Protocol Last Admin: 02/07/18 10:01 Dose: 250 mg Divalproex Sodium (Depakote Er(Once Daily)) 250 mg PO HS [facility] Last Admin: 02/06/18 21:27 Dose: 250 mg Docusate Sodium (Colace) 100 mg PO BID [facility] Last Admin: 02/07/18 10:02 Dose: 100 mg Enoxaparin Sodium (Lovenox) 30 mg SC DAILY [facility] PRN Reason: Protocol Last Admin: 02/07/18 10:02 Dose: 30 mg Ferrous Sulfate (Feosol) 324 mg PO DAILY [facility] Last Admin: 02/07/18 10:02 Dose: 324 mg Folic Acid (Folic Acid) 1 mg PO DAILY [facility] Last Admin: 02/07/18 10:01 Dose: 1 mg Insulin Human Regular (Humulin R Med) 0 units SC [facility] PRN Reason: Protocol Last Admin: 02/07/18 12:30 Dose: 1 units Lactobacillus Acidophilus (Bacid Acidophilus) 1 cap PO DAILY [facility] Last Admin: 02/07/18 10:01 Dose: 1 cap Lorazepam (Ativan) 1 mg IM Q8H PRN; Protocol PRN Reason: Anxiety Last Admin: 02/07/18 12:50 Dose: 1 mg Lorazepam (Ativan) 1 mg PO Q6H PRN; Protocol PRN Reason: Anxiety Last Admin: 02/06/18 08:00 Dose: 1 mg Magnesium Hydroxide (Milk Of Magnesia) 30 ml PO DAILY PRN PRN Reason: Constipation Oxycodone HCl (Oxycodone Immediate Release Tab) 5 mg PO Q4H PRN PRN Reason: Moderate to Severe Pain Last Admin: 02/05/18 21:13 Dose: 5 mg Oxycodone HCl (Oxycodone Immediate Release Tab) 5 mg PO BID [facility] Last Admin: 02/07/18 10:01 Dose: 5 mg Quetiapine Fumarate (Seroquel) 100 mg PO DAILY [facility] PRN Reason: Protocol Quetiapine Fumarate (Seroquel) 200 mg PO HS [facility] PRN Reason: Protocol Zaleplon (Sonata) 10 mg PO HS [facility] Last Admin: 02/06/18 21:30 Dose: 10 mg - Labs Labs: 02/07/18 06:15 02/07/18 06:15
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
[2018-02-07] MEDS: Divalproex 250 mg ER (ONCE DAILY formulation) PO SCH (21:04)
[2018-02-08] MEDS: Lactobacillus Acidophilus 500 MU Cap PO SCH (08:46)
[2018-02-08] MEDS: Divalproex 250 mg DR (BID formulation) PO SCH ×2 (08:46→15:34)
[2018-02-08] MEDS: Enoxaparin 30 mg Syringe SC SCH (08:52)
[2018-02-08] MEDS: oxyCODONE 5 mg Immediate Release Tab PO SCH ×2 (08:52→16:55)
[2018-02-08] MEDS: Insulin Reg-MEDIUM-Coverage SC SCH ×5 (08:53→21:45)
[2018-02-08] MEDS: Amoxicillin-Clav 500-125 mg Tab PO SCH ×2 (12:06→16:54)
[2018-02-08] MEDS: Promethazine DM 6.25 mg-15 mg/5 ml Syrup PO PRN (12:06)
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
[2018-02-08] MEDS: Divalproex 250 mg ER (ONCE DAILY formulation) PO SCH (21:30)
--- NOTE | 2018-02-09 06:55 | PN ---
DATE: 02/08/2018 SUBJECTIVE: I saw her in the hospital bed. She is alert, a little bit upset, also at the bed, coughed this morning, sounds like congested. She is on Ativan, Bacid, Colace, Depakote, folic acid, insulin coverage, Lovenox, magnesium, milk of magnesia, oxycodone. I added Phenergan DM, Seroquel, Thorazine, Tylenol, I am also going to add some Augmentin. PHYSICAL EXAMINATION GENERAL: She has 98.6 temperature; 96 pulse; 116/69 blood pressure, 20 respiratory rate. HEENT: Head is atraumatic, normocephalic. Throat is clear. HEART: Regular rate. LUNGS: Decreased breath sounds with congestion. ABDOMEN: Soft. EXTREMITIES: No edema, LABORATORY DATA: She has a 5.7 white count, 12.5 hemoglobin, 39.8 hematocrit with 237 platelets. She has a 144 sodium, potassium 4.6, BUN 15, creatinine 0.8. Last blood sugar was 91. Total bili is 0.4. AST is 30. ALT is 53. Alkaline phosphatase 185, total protein 6.7. ASSESSMENT AND PLAN: She has a cough, she had urinary tract infection, mildly high sodium. She is bipolar. She is in bed. I am going to add Augmentin and Phenergan DM and will keep an eye on her. Tien Jaffe DO MTDD
[2018-02-09 07:08] LABS: BLOOD UREA NITROGEN 16 mg/dL (7-21); CALCIUM 9.5 mg/dL (8.4-10.5); GFR AFRICAN-AMERICAN > 60; GFR NON-AFRICAN AMERICAN > 60
[2018-02-09] MEDS: Insulin Reg-MEDIUM-Coverage SC SCH ×4 (08:22→21:21)
[2018-02-09] MEDS: Enoxaparin 30 mg Syringe SC SCH (08:37)
[2018-02-09] MEDS: Divalproex 250 mg DR (BID formulation) PO SCH ×2 (08:41→17:20)
[2018-02-09] MEDS: Lactobacillus Acidophilus 500 MU Cap PO SCH (08:42)
[2018-02-09] MEDS: Amoxicillin-Clav 500-125 mg Tab PO SCH ×2 (08:43→17:20)
[2018-02-09] MEDS: oxyCODONE 5 mg Immediate Release Tab PO SCH ×2 (08:43→17:20)
--- NOTE | 2018-02-09 12:28 | CP.PCM.PN ---
Subjective - Date & Time of Evaluation Date of Evaluation: 02/09/18 Time of Evaluation: 12:27 - Subjective Subjective: Nephrology Consultation: Assessment: Stable Mild Hypernatremia and mild Hypercalcemia likely due to [place] as it can cause nephrogenic DI and hyperparathyroidism possible UTI elevated BP Bipolar disorder Plan No acute need for renal replacement therapy at this time. BP control acceptable for now pt to drink plenty of fluids/water. Discussed with the nursing staff to allow patient to have unrestricted access to water continue with water 250 mL every 4 hours scheduled dose hold vit D supplements for now Will consider calcimimetic as Sensipar if calcium stays elevated. Ca better for now Dose meds/antibiotics for normal GFR. Further work up/management as per primary team Re: medications from psychiatry perspective, consider alternative medications to lithium considering current complications likely due to [place] (as mentioned above). If need to use, consider it with amiloride and with close monitoring of [place] levels. Thanks for allowing me to participate in care of your patient. Will follow further PRN basis. Please call if any Qs. d/w team Dr Jaquan Adams Office: [phone] Chief Complaint; unable reason for consult: electrolyte abnormalities source of Info: as per EMR HPI: Pt is a 62 F with hx of bipolar disorder, on lithium presented with complaints of behavioral changes and hallucinations. renal consult for electrolytes abnormality and UTI pt unable to provide much reliable hx ROS: Unable to obtain from the patient Physical Examination: General Appearance: Comfortable, in no acute respiratory distress, co-operative . Vitals reviewed and noted as below Head; Atraumatic, normocephalic ENT: no ulcers no thrush. Tongue is midline/dry. Oropharynx: no rash or ulcers. EYES: Pupils are equal, round and reactive to light accommodation. Eye muscles and extraocular movement intact. Sclera is anicteric. Neck; supple no lymphadenopathy, no thyromegaly or bruit Lungs: Normal respiratory rate/effort. Breath sounds bilateral equal and clear Heart: Normal rate. s1s2 normal. No rub or gallop. Extremities: no edema. No varicose veins Neurological: Patient is alert, awake and disoriented. No focal deficit. Strength bilateral appropriate and equal Skin: Warm and dry. Normal turgor. No rash. Palpitation: Normal elasticity for age Abdomen: Abdomen is soft. Bowel sounds +. There is no abdominal tenderness, no guarding/rigidity no organomegaly Psych: lack insight and hallucinations + MSK: no joint tenderness or swelling. Digits and nails normal, no deformity : kidney or bladder not palpable Labs/imaging reviewed. Past medical history, past surgical history, family history, social history, allergy reviewed and noted as below Family hx: no hx of CKD. Rest non-contributory Workup PTH 153 vitamin D level 25 urine osmolality 157 Objective - Vital Signs/Intake and Output Vital Signs (last 24 hours): Temp Pulse Resp BP Pulse Ox 98.6 F 68 20 107/79 98 02/09/18 07:32 02/09/18 07:32 02/09/18 07:32 02/09/18 07:32 02/01/18 15:23 - Medications Medications: Current Medications Acetaminophen (Tylenol 325mg Tab) 650 mg PO Q6H PRN PRN Reason: Pain, moderate (4-7) Al Hydrox/Mg Hydrox/Simethicone (Maalox Plus 30 Ml) 30 ml PO DAILY PRN PRN Reason: Indigestion / Heartburn Alprazolam (Xanax) 0.5 mg PO BID [facility] PRN Reason: Protocol Last Admin: 02/09/18 08:42 Dose: 0.5 mg Alprazolam (Xanax) 1 mg PO HS [facility] PRN Reason: Protocol Amoxicillin/Clavulanate Potassium (Augmentin 500 Mg-125 Mg Tab) 1 tab PO BID [facility] PRN Reason: Protocol Last Admin: 02/09/18 08:43 Dose: 1 tab Chlorpromazine (Thorazine) 25 mg IM BID PRN; Protocol PRN Reason: severe agitation Chlorpromazine (Thorazine) 100 mg PO HS [facility] PRN Reason: Protocol Chlorpromazine (Thorazine) 100 mg PO BID [facility] PRN Reason: Protocol Divalproex Sodium (Depakote Dr (*Bid*)) 250 mg PO BID [facility] PRN Reason: Protocol Last Admin: 02/09/18 08:41 Dose: 250 mg Divalproex Sodium (Depakote Er(Once Daily)) 250 mg PO HS [facility] Last Admin: 02/08/18 21:30 Dose: 250 mg Docusate Sodium (Colace) 100 mg PO BID [facility] Last Admin: 02/09/18 08:43 Dose: 100 mg Enoxaparin Sodium (Lovenox) 30 mg SC DAILY [facility] PRN Reason: Protocol Last Admin: 02/09/18 08:37 Dose: 30 mg Ferrous Sulfate (Feosol) 324 mg PO DAILY [facility] Last Admin: 02/09/18 08:43 Dose: 324 mg Folic Acid (Folic Acid) 1 mg PO DAILY [facility] Last Admin: 02/09/18 08:43 Dose: 1 mg Insulin Human Regular (Humulin R Med) 0 units SC [facility] PRN Reason: Protocol Last Admin: 02/08/18 21:45 Dose: Not Given Lactobacillus Acidophilus (Bacid Acidophilus) 1 cap PO DAILY [facility] Last Admin: 02/09/18 08:42 Dose: 1 cap Lorazepam (Ativan) 1 mg IM Q8H PRN; Protocol PRN Reason: Anxiety Last Admin: 02/07/18 12:50 Dose: 1 mg Lorazepam (Ativan) 1 mg PO Q6H PRN; Protocol PRN Reason: Anxiety Last Admin: 02/09/18 11:23 Dose: 1 mg Magnesium Hydroxide (Milk Of Magnesia) 30 ml PO DAILY PRN PRN Reason: Constipation Oxycodone HCl (Oxycodone Immediate Release Tab) 5 mg PO Q4H PRN PRN Reason: Moderate to Severe Pain Last Admin: 02/05/18 21:13 Dose: 5 mg Oxycodone HCl (Oxycodone Immediate Release Tab) 5 mg PO BID [facility] Last Admin: 02/09/18 08:43 Dose: 5 mg Promethazine HCl/Dextromethorphan (Phenergan Dm Syrup) 5 ml PO Q6H PRN PRN Reason: Cough Last Admin: 02/08/18 12:06 Dose: 5 ml Zaleplon (Sonata) 10 mg PO HS [facility] Last Admin: 02/08/18 22:50 Dose: 10 mg - Labs Labs: 02/07/18 06:15 02/09/18 06:30
--- NOTE | 2018-02-09 12:45 | PN ---
DATE: SUBJECTIVE: I saw her resting comfortably in hospital bed. She is alert. She is a little bit upset this morning. MEDICATIONS: She is on Ativan, Augmentin, Bacid, Colace, Depakote, Feosol, folic acid, insulin, Lovenox, Maalox, milk of magnesia, oxycodone, Phenergan, Seroquel, Sonata, Thorazine, Tylenol, and Xanax. PHYSICAL EXAMINATION: VITAL SIGNS: She has a 98.6 temperature, 68 pulse, 107/79 blood pressure, 20 respiratory rate. HEENT: Head: Atraumatic, normocephalic. HEART: Regular rate. LUNGS: Clear to auscultation. ABDOMEN: Soft. EXTREMITIES: No edema. LABORATORY DATA: She has a 5.7 white count, 12.5 hemoglobin, 39.8 hematocrit with 237 platelets. Sodium 147, potassium 4.3, BUN 16, creatinine 0.8, GFR is greater than 60, sugar is 93. Her labs are very good. We will continue to watch her medically. I am not sure how she is going to get much better mentally. She was seen by Renal. I find her to have no need for anymore Renal evaluation at this time. We will continue aggressive treatment and care. I am not going to order labs tomorrow. I will follow. Tien Jaffe DO
--- NOTE | 2018-02-09 12:52 | PCM.PYCHPN ---
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 patient is too psychotic to understand Medical Problems: New UTI, pt had been at the assisted living facility at [facility] since her ortho surgery 11/2017; anemia pt's PCP is Guido Feliz. Diagnostic Results: 02/02/18 06:50 02/02/18 06:50 Lab Results 02/03/18 11:51: POC Glucose (mg/dL) 97 02/03/18 09:13: POC Glucose (mg/dL) 160 H 02/02/18 23:20: Urine Osmolality 157 L, Ur Random Sodium 12 02/02/18 21:07: POC Glucose (mg/dL) 110 02/02/18 17:01: POC Glucose (mg/dL) 104 02/02/18 09:35: Phosphorus 3.4, Magnesium 2.8 H 02/02/18 09:35: 25-OH Vitamin D Total 25.4 L 02/02/18 09:35: Total Protein (PEP) 6.8, Albumin (PEP) 3.7 L, Phjxv-1-Zyxemdqdk 0.4 H, Szgfn-8-Rhinnclke 0.8, Vovk-1-Jqfnzztu 0.4, Ejew-7-Gqmwoymp 0.3, Gamma Globulins 1.1, Abnorm Protein Band 1 TEST NOT PERFORMED, Abnorm Protein Band 2 TEST NOT PERFORMED, Abnorm Protein Band 3 TEST NOT PERFORMED, RANDOLPH & SPEP Interp See note, Serum Immunofixation Pending, Tot [place]/Lambda Ratio Pending, [place] Light Chain Anal Pending, Lambda Light Chain Anal Pending 02/02/18 09:35: PTH Intact Whole Molec 153 H 02/02/18 06:50: RPR Nonreactive 02/02/18 06:50: TSH 3rd Generation 1.05 02/02/18 06:50: Sodium 148, Potassium 3.7, Chloride 113 H, Carbon Dioxide 23, Anion Gap 17, BUN 20, Creatinine 1.0, Est GFR ( Amer) > 60, Est GFR (Non- Af Amer) 56, Random Glucose 115 H, Fasting Glucose 115 H, Calcium 10.7 H, Total Bilirubin 0.8, AST 29, ALT 32, Alkaline Phosphatase 219 H, Total Protein 7.4, Albumin 4.1, Globulin 3.3, Albumin/Globulin Ratio 1.2, Triglycerides 112, Cholesterol 174, LDL Cholesterol Direct 95, HDL Cholesterol 52 02/02/18 06:50: WBC 12.8 H, RBC 4.43, Hgb 12.6, Hct 40.4, MCV 91.2, MCH 28.4, MCHC 31.2, RDW 15.2 H, Plt Count 272, MPV 10.6, Gran % 79.0 H, Lymph % (Auto) 9.8 L, [place] % (Auto) 9.9 H, Eos % (Auto) 0.9 L, Baso % (Auto) 0.4, Gran # 10.09 H, Lymph # (Auto) 1.3, [place] # (Auto) 1.3 H, Eos # (Auto) 0.1, Baso # (Auto) 0.05 02/02/18 06:50: [place] 1.0 02/01/18 16:01: Urine Opiates Screen Negative, Urine Methadone Screen Negative, Ur Barbiturates Screen Negative, Ur Phencyclidine Scrn Negative, Ur Amphetamines Screen Negative, U Benzodiazepines Scrn Negative, U Oth Cocaine Metabols Negative, U Cannabinoids Screen Negative 02/01/18 16:01: Urine Color Yellow, Urine Appearance Sl cloudy, Urine pH 6.0, Ur Specific [place] 1.010, Urine Protein Negative, Urine Glucose (UA) Negative, Urine Ketones Negative, Urine Blood Small H, Urine Nitrate Negative, Urine Bilirubin Negative, Urine Urobilinogen 0.2, Ur Leukocyte Esterase Large H, Urine RBC 0 - 2, Urine WBC 10 - 15, Urine Bacteria Trace 02/01/18 13:47: [place] 1.5 H 02/01/18 13:47: Alcohol, Quantitative < 10 02/01/18 13:47: Salicylates < 1 L, Acetaminophen < 10.0 L 02/01/18 13:47: Sodium 144, Potassium 3.5 L, Chloride 109 H, Carbon Dioxide 25, Anion Gap 13, BUN 19, Creatinine 1.2, Est GFR ( Amer) 55, Est GFR (Non- Af Amer) 46, Random Glucose 112 H, Calcium 10.8 H, Total Bilirubin 0.5, AST 31, ALT 38, Alkaline Phosphatase 189 H, Total Protein 7.0, Albumin 3.9, Globulin 3.1 , Albumin/Globulin Ratio 1.3 02/01/18 13:47: WBC 15.0 H, RBC 4.39, Hgb 12.8, Hct 39.7, MCV 90.4, MCH 29.2, MCHC 32.2, RDW 15.0 H, Plt Count 242, MPV 10.0, Gran % 81.7 H, Lymph % (Auto) 8.3 L, [place] % (Auto) 9.5 H, Eos % (Auto) 0.3 L, Baso % (Auto) 0.2, Gran # 12.24 H, Lymph # (Auto) 1.2, [place] # (Auto) 1.4 H, Eos # (Auto) 0.0, Baso # (Auto) 0.03 Vital Signs Temp Pulse Resp BP Pulse Ox 02/03/18 07:34 97.6 F 87 20 130/78 02/02/18 16:00 106 H 121/71 02/02/18 07:33 98.0 F 57 L 20 146/84 02/01/18 22:00 20 02/01/18 15:23 104 H 18 151/87 H 98 02/01/18 13:14 98.3 F 98 H 18 138/78 99 Laboratory Results - last 24 hr 02/02/18 02/03/18 02/04/18 09:35 21:17 07:15 WBC 8.5 D RBC 4.33 Hgb 12.6 Hct 39.8 MCV 91.9 MCH 29.1 MCHC 31.7 RDW 15.3 H Plt Count 278 MPV 10.2 Sodium Potassium Chloride Carbon Dioxide Anion Gap BUN Creatinine Est GFR ( Amer) Est GFR (Non-Af Amer) POC Glucose (mg/dL) 154 H Random Glucose Calcium Total Bilirubin AST ALT Alkaline Phosphatase Total Protein Albumin Globulin Albumin/Globulin Ratio Serum Immunofixation Not detected Tot [place]/Lambda Ratio 2.28 [place] Light Chain Anal 239 Lambda Light Chain Anal 105 02/04/18 02/04/18 02/04/18 07:15 07:37 12:08 WBC RBC Hgb Hct MCV MCH MCHC RDW Plt Count MPV Sodium 151 H Potassium 4.3 Chloride 114 H Carbon Dioxide 27 Anion Gap 14 BUN 16 Creatinine 0.8 Est GFR ( Amer) > 60 Est GFR (Non-Af Amer) > 60 POC Glucose (mg/dL) 102 95 Random Glucose 112 H Calcium 10.6 H Total Bilirubin 0.4 AST 24 ALT 30 Alkaline Phosphatase 194 H Total Protein 7.0 Albumin 3.7 Globulin 3.3 Albumin/Globulin Ratio 1.1 Serum Immunofixation Tot [place]/Lambda Ratio [place] Light Chain Anal Lambda Light Chain Anal 02/04/18 16:11 WBC RBC Hgb Hct MCV MCH MCHC RDW Plt Count MPV Sodium Potassium Chloride Carbon Dioxide Anion Gap BUN Creatinine Est GFR ( Amer) Est GFR (Non-Af Amer) POC Glucose (mg/dL) 88 Random Glucose Calcium Total Bilirubin AST ALT Alkaline Phosphatase Total Protein Albumin Globulin Albumin/Globulin Ratio Serum Immunofixation Tot [place]/Lambda Ratio [place] Light Chain Anal Lambda Light Chain Anal Temp Pulse Resp BP Pulse Ox 97.9 F 80 20 134/78 98 02/04/18 07:00 02/04/18 07:00 02/04/18 07:00 02/04/18 07:00 02/01/18 15:23 Abnormal Lab Results 02/05/18 02/05/18 02/06/18 16:26 21:13 07:00 WBC 6.5 D RBC 4.29 Hgb 12.5 Hct 39.3 MCV 91.6 MCH 29.1 MCHC 31.8 RDW 15.1 H Plt Count 260 MPV 10.6 Sodium Potassium Chloride Carbon Dioxide Anion Gap BUN Creatinine Est GFR ( Amer) Est GFR (Non-Af Amer) POC Glucose (mg/dL) 98 99 Random Glucose Calcium Total Bilirubin AST ALT Alkaline Phosphatase Total Protein Albumin Globulin Albumin/Globulin Ratio 02/06/18 02/06/18 02/06/18 07:00 07:40 11:06 WBC RBC Hgb Hct MCV MCH MCHC RDW Plt Count MPV Sodium 145 Potassium 4.1 Chloride 109 H Carbon Dioxide 30 Anion Gap 10 BUN 16 Creatinine 0.8 Est GFR ( Amer) > 60 Est GFR (Non-Af Amer) > 60 POC Glucose (mg/dL) 85 93 Random Glucose 100 Calcium 10.0 Total Bilirubin 0.4 AST 32 ALT 45 Alkaline Phosphatase 203 H Total Protein 6.6 Albumin 3.5 Globulin 3.1 Albumin/Globulin Ratio 1.1 Temp Pulse Resp BP Pulse Ox 97.3 F L 94 H 20 145/84 98 02/06/18 07:53 02/06/18 07:53 02/06/18 07:53 02/06/18 07:53 02/01/18 15:23 Laboratory Results - last 24 hr 02/06/18 02/07/18 02/07/18 22:02 06:15 06:15 WBC 5.7 RBC 4.32 Hgb 12.5 Hct 39.8 MCV 92.1 MCH 28.9 MCHC 31.4 RDW 15.2 H Plt Count 237 MPV 10.4 Sodium 144 Potassium 4.6 Chloride 110 H Carbon Dioxide 27 Anion Gap 12 BUN 15 Creatinine 0.8 Est GFR ( Amer) > 60 Est GFR (Non-Af Amer) > 60 POC Glucose (mg/dL) 89 Random Glucose 95 Calcium 9.8 Total Bilirubin 0.4 AST 30 ALT 53 Alkaline Phosphatase 195 H Total Protein 6.7 Albumin 3.6 Globulin 3.1 Albumin/Globulin Ratio 1.2 02/07/18 12:59 WBC RBC Hgb Hct MCV MCH MCHC RDW Plt Count MPV Sodium Potassium Chloride Carbon Dioxide Anion Gap BUN Creatinine Est GFR ( Amer) Est GFR (Non-Af Amer) POC Glucose (mg/dL) 158 H Random Glucose Calcium Total Bilirubin AST ALT Alkaline Phosphatase Total Protein Albumin Globulin Albumin/Globulin Ratio Temp Pulse Resp BP Pulse Ox 98.3 F 86 20 77/47 L 98 02/07/18 07:37 02/07/18 07:37 02/07/18 07:37 02/07/18 07:37 02/01/18 15:23 DSM 5 Symptoms Update: shortly patient is 62-year- female, reported h/o Bipolar disorder, not known h/ o suicidal attempts, not known h/o psychiatric admissions, pt was transferred from the [facility] in [place] where she was getting subacute care for orthopedic surgery, pt was transferred from the facility for evaluation of disorganized, psychotic, agitated and aggressive behavior. As per report from the [place] facility, pt was sexually preoccupied/constantly disrobing or walking around naked, pt was also responding to internal stimuli, pt also broke drawers in facility, was pouring water over other residents, previously pt was in assisted living, pt was able to sign consent for treatment. patient still has episodes of agitated, aggressive, behavior, pt also was religiously preoccupied patient was screaming out loud "I made the sin, I need to be on the ceiling, I committed the crime, all my god I will be punished, I feel so anxious, held me, help me", patient is disorganized, [place] meaningful conversation possible, religiously preoccupied, restless. Thorazine will be increased today, Xanax will be increased today discussed with [facility] , recommended to use other meds than lithium. so far patient tolerates medications well, no side effects observed or reported Impression: Schizoaffective disorder Rule out delirium due to general medical condition including UTI, lithium toxicity Medication Change: Yes (seroquel d/c, Thorazine increased, Xanax implemented) Medical Record Reviewed: Yes Mental Status Examination - Cognitive Function Orientation: Person Memory: Impaired Attention: Poor Concentration: Poor Association: Loose Fund of Knowledge: Poor - Mood Mood: Depressed, Anxious - Affect Affect: Flat - Formal Thought Process Formal Thought Process: Delusions, Paranoia, Loosening of associations - Suicidal Ideation Suicidal Ideation: No - Homicidal Ideation Homicidal Ideation: No Goal/Treatment Plan - Goal/Treatment Plan Need for Continued Stay: Remain at risks for inpatient hospitalization, Severe depression anxiety, Discharge may exacerbated symptoms, Failed transitioning, Severe functional impairment Progress Toward Problem(s) and Goals/Treatment Plan: milieu/structure/supportive therapy Acetaminophen [Tylenol 325mg tab] 650 mg PO PRN Bisacodyl [Ducolax] 10 mg RC PRN PRN Celecoxib [CeleBREX] 100 mg PO BID nonformulary Cholecalciferol (Vitd3)/Vit K2 [D3 + K2 Dots 1,000 Units Tab] 2,000 iu PO DAILY as per medical team Docusate [Colace] 100 mg PO BID Ferrous Sulfate [Ferosul] 325 mg PO DAILY 02/01/18 Folic Acid 1 mg PO DAILY [place] Carbonate ER Tab [[place] Carbonate] 450 mg PO BID was stopped Magnesium Hydroxide [Milk Of Magnesia] 30 ml PO PRN PRN oxyCODONE 5 mg PO Q4H PRN oxycodone 5mg po bid started, pt was on celebrex which is nonformulary seroquel discontinued thorazine 100mg po tid depakote 250mg po bid and hs for mood stabilization Xanax1 mg 3 times a day scheduled geodon as needed sonata as needed nephrology and medical team involved SW consultation for discharge plan and social issues psychiatrist was contacted, awaiting for call back Family involvement Follow up on labs Will monitor closely Pt was educated about risk/benefits and alternatives of medications, coping strategies (safety plan, suicide prevention), relapse prevention, importance of follow up with psychiatrist and therapist, stay away from drugs/alcohol/smoking patient still required to be on one-to-one Estimated Date of D/C: 02/11/18
[2018-02-09] MEDS: Divalproex 250 mg ER (ONCE DAILY formulation) PO SCH (21:24)
[2018-02-10] MEDS: Divalproex 250 mg DR (BID formulation) PO SCH ×2 (09:15→17:15)
[2018-02-10] MEDS: Lactobacillus Acidophilus 500 MU Cap PO SCH (09:15)
[2018-02-10] MEDS: oxyCODONE 5 mg Immediate Release Tab PO SCH ×2 (09:16→17:16)
[2018-02-10] MEDS: Amoxicillin-Clav 500-125 mg Tab PO SCH ×2 (09:16→17:15)
[2018-02-10] MEDS: Enoxaparin 30 mg Syringe SC SCH (09:17)
[2018-02-10] MEDS: Insulin Reg-MEDIUM-Coverage SC SCH ×4 (09:18→21:07)
--- NOTE | 2018-02-10 13:17 | PN ---
DATE: SUBJECTIVE: I saw Kenyatta resting comfortably in bed. She slept well. MEDICATIONS: She is on Ativan, Augmentin, Bacid, Colace, Depakote, Feosol, folic acid, insulin, Lovenox, Maalox, milk of magnesia, oxycodone, Phenergan, Sonata, Thorazine, Tylenol and Xanax. PHYSICAL EXAMINATION: VITAL SIGNS: She has a 98.5 temp, 88 pulse, 118/75 blood pressure, 19 respiratory rate. HEENT: Head is atraumatic, normocephalic. HEART: Regular rate. LUNGS: Clear to auscultation. ABDOMEN: Soft, obese. EXTREMITIES: No edema. LABORATORY DATA: She has a 5.7 white count, 12.5 hemoglobin, 39.8 hematocrit with 237 platelets. She has a 147 sodium, potassium is 4.3, BUN 16, creatinine 0.8, GFR is greater than 60, last blood sugar was 110. ASSESSMENT AND PLAN: She is being seen by Psychiatry and Renal. Last kidney functions were good. She has a urinary tract infection, bipolar. She has high sodium, mild and she had a cough. I do think she is improving. We will continue to watch her. Tien Jaffe DO
[2018-02-10 14:19] LABS: BASO # 0.02 K/mm3 (0.0-2.0); BASO % 0.3 % (0.0-3.0); EOS # 0.1 (0.0-0.7); EOS % 1.1 % (1.5-5.0); GRAN # 4.99 (1.4-6.5); GRAN % 71.6 % (50.0-68.0); HEMOGLOBIN 12.4 g/dL (12.0-16.0); LYMPH # 1.3 (1.2-3.4); LYMPH % 18.7 % (22.0-35.0); MEAN CELL VOLUME 92.9 fl (80.0-105.0); MEAN CORPUSCULAR HEMOGLOBIN 29.2 pg (25.0-35.0); MEAN CORPUSCULAR HGB CONC 31.4 g/dl (31.0-37.0); MEAN PLATELET VOLUME 10.6 fl (7.0-11.0); MONO # 0.6 (0.1-0.6); MONO % 8.3 % (1.0-6.0); RBC 4.25 10^6/uL (3.5-6.1); RED CELL DISTRIBUTION WIDTH 15.1 % (11.5-14.5)
--- NOTE | 2018-02-10 16:18 | PCM.PYCHPN ---
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 patient is too psychotic to understand Medical Problems: New UTI, pt had been at the assisted living facility at [facility] [place] since her ortho surgery 11/2017; anemia pt's PCP is Guido Feliz. Diagnostic Results: 02/02/18 06:50 02/02/18 06:50 Lab Results 02/03/18 11:51: POC Glucose (mg/dL) 97 02/03/18 09:13: POC Glucose (mg/dL) 160 H 02/02/18 23:20: Urine Osmolality 157 L, Ur Random Sodium 12 02/02/18 21:07: POC Glucose (mg/dL) 110 02/02/18 17:01: POC Glucose (mg/dL) 104 02/02/18 09:35: Phosphorus 3.4, Magnesium 2.8 H 02/02/18 09:35: 25-OH Vitamin D Total 25.4 L 02/02/18 09:35: Total Protein (PEP) 6.8, Albumin (PEP) 3.7 L, Cbajm-7-Inalrouzm 0.4 H, Zvtff-5-Siuxdiirx 0.8, Dwqu-5-Wgshjhyx 0.4, Dldz-8-Qssdvybv 0.3, Gamma Globulins 1.1, Abnorm Protein Band 1 TEST NOT PERFORMED, Abnorm Protein Band 2 TEST NOT PERFORMED, Abnorm Protein Band 3 TEST NOT PERFORMED, RANDOLPH & SPEP Interp See note, Serum Immunofixation Pending, Tot [place]/Lambda Ratio Pending, [place] Light Chain Anal Pending, Lambda Light Chain Anal Pending 02/02/18 09:35: PTH Intact Whole Molec 153 H 02/02/18 06:50: RPR Nonreactive 02/02/18 06:50: TSH 3rd Generation 1.05 02/02/18 06:50: Sodium 148, Potassium 3.7, Chloride 113 H, Carbon Dioxide 23, Anion Gap 17, BUN 20, Creatinine 1.0, Est GFR ( Amer) > 60, Est GFR (Non- Af Amer) 56, Random Glucose 115 H, Fasting Glucose 115 H, Calcium 10.7 H, Total Bilirubin 0.8, AST 29, ALT 32, Alkaline Phosphatase 219 H, Total Protein 7.4, Albumin 4.1, Globulin 3.3, Albumin/Globulin Ratio 1.2, Triglycerides 112, Cholesterol 174, LDL Cholesterol Direct 95, HDL Cholesterol 52 02/02/18 06:50: WBC 12.8 H, RBC 4.43, Hgb 12.6, Hct 40.4, MCV 91.2, MCH 28.4, MCHC 31.2, RDW 15.2 H, Plt Count 272, MPV 10.6, Gran % 79.0 H, Lymph % (Auto) 9.8 L, [place] % (Auto) 9.9 H, Eos % (Auto) 0.9 L, Baso % (Auto) 0.4, Gran # 10.09 H, Lymph # (Auto) 1.3, [place] # (Auto) 1.3 H, Eos # (Auto) 0.1, Baso # (Auto) 0.05 02/02/18 06:50: [place] 1.0 02/01/18 16:01: Urine Opiates Screen Negative, Urine Methadone Screen Negative, Ur Barbiturates Screen Negative, Ur Phencyclidine Scrn Negative, Ur Amphetamines Screen Negative, U Benzodiazepines Scrn Negative, U Oth Cocaine Metabols Negative, U Cannabinoids Screen Negative 02/01/18 16:01: Urine Color Yellow, Urine Appearance Sl cloudy, Urine pH 6.0, Ur Specific [place] 1.010, Urine Protein Negative, Urine Glucose (UA) Negative, Urine Ketones Negative, Urine Blood Small H, Urine Nitrate Negative, Urine Bilirubin Negative, Urine Urobilinogen 0.2, Ur Leukocyte Esterase Large H, Urine RBC 0 - 2, Urine WBC 10 - 15, Urine Bacteria Trace 02/01/18 13:47: [place] 1.5 H 02/01/18 13:47: Alcohol, Quantitative < 10 02/01/18 13:47: Salicylates < 1 L, Acetaminophen < 10.0 L 02/01/18 13:47: Sodium 144, Potassium 3.5 L, Chloride 109 H, Carbon Dioxide 25, Anion Gap 13, BUN 19, Creatinine 1.2, Est GFR ( Amer) 55, Est GFR (Non- Af Amer) 46, Random Glucose 112 H, Calcium 10.8 H, Total Bilirubin 0.5, AST 31, ALT 38, Alkaline Phosphatase 189 H, Total Protein 7.0, Albumin 3.9, Globulin 3.1 , Albumin/Globulin Ratio 1.3 02/01/18 13:47: WBC 15.0 H, RBC 4.39, Hgb 12.8, Hct 39.7, MCV 90.4, MCH 29.2, MCHC 32.2, RDW 15.0 H, Plt Count 242, MPV 10.0, Gran % 81.7 H, Lymph % (Auto) 8.3 L, [place] % (Auto) 9.5 H, Eos % (Auto) 0.3 L, Baso % (Auto) 0.2, Gran # 12.24 H, Lymph # (Auto) 1.2, [place] # (Auto) 1.4 H, Eos # (Auto) 0.0, Baso # (Auto) 0.03 Vital Signs Temp Pulse Resp BP Pulse Ox 02/03/18 07:34 97.6 F 87 20 130/78 02/02/18 16:00 106 H 121/71 02/02/18 07:33 98.0 F 57 L 20 146/84 02/01/18 22:00 20 02/01/18 15:23 104 H 18 151/87 H 98 02/01/18 13:14 98.3 F 98 H 18 138/78 99 Laboratory Results - last 24 hr 02/02/18 02/03/18 02/04/18 09:35 21:17 07:15 WBC 8.5 D RBC 4.33 Hgb 12.6 Hct 39.8 MCV 91.9 MCH 29.1 MCHC 31.7 RDW 15.3 H Plt Count 278 MPV 10.2 Sodium Potassium Chloride Carbon Dioxide Anion Gap BUN Creatinine Est GFR ( Amer) Est GFR (Non-Af Amer) POC Glucose (mg/dL) 154 H Random Glucose Calcium Total Bilirubin AST ALT Alkaline Phosphatase Total Protein Albumin Globulin Albumin/Globulin Ratio Serum Immunofixation Not detected Tot [place]/Lambda Ratio 2.28 [place] Light Chain Anal 239 Lambda Light Chain Anal 105 02/04/18 02/04/18 02/04/18 07:15 07:37 12:08 WBC RBC Hgb Hct MCV MCH MCHC RDW Plt Count MPV Sodium 151 H Potassium 4.3 Chloride 114 H Carbon Dioxide 27 Anion Gap 14 BUN 16 Creatinine 0.8 Est GFR ( Amer) > 60 Est GFR (Non-Af Amer) > 60 POC Glucose (mg/dL) 102 95 Random Glucose 112 H Calcium 10.6 H Total Bilirubin 0.4 AST 24 ALT 30 Alkaline Phosphatase 194 H Total Protein 7.0 Albumin 3.7 Globulin 3.3 Albumin/Globulin Ratio 1.1 Serum Immunofixation Tot [place]/Lambda Ratio [place] Light Chain Anal Lambda Light Chain Anal 02/04/18 16:11 WBC RBC Hgb Hct MCV MCH MCHC RDW Plt Count MPV Sodium Potassium Chloride Carbon Dioxide Anion Gap BUN Creatinine Est GFR ( Amer) Est GFR (Non-Af Amer) POC Glucose (mg/dL) 88 Random Glucose Calcium Total Bilirubin AST ALT Alkaline Phosphatase Total Protein Albumin Globulin Albumin/Globulin Ratio Serum Immunofixation Tot [place]/Lambda Ratio [place] Light Chain Anal Lambda Light Chain Anal Temp Pulse Resp BP Pulse Ox 97.9 F 80 20 134/78 98 02/04/18 07:00 02/04/18 07:00 02/04/18 07:00 02/04/18 07:00 02/01/18 15:23 Abnormal Lab Results 02/05/18 02/05/18 02/06/18 16:26 21:13 07:00 WBC 6.5 D RBC 4.29 Hgb 12.5 Hct 39.3 MCV 91.6 MCH 29.1 MCHC 31.8 RDW 15.1 H Plt Count 260 MPV 10.6 Sodium Potassium Chloride Carbon Dioxide Anion Gap BUN Creatinine Est GFR ( Amer) Est GFR (Non-Af Amer) POC Glucose (mg/dL) 98 99 Random Glucose Calcium Total Bilirubin AST ALT Alkaline Phosphatase Total Protein Albumin Globulin Albumin/Globulin Ratio 02/06/18 02/06/18 02/06/18 07:00 07:40 11:06 WBC RBC Hgb Hct MCV MCH MCHC RDW Plt Count MPV Sodium 145 Potassium 4.1 Chloride 109 H Carbon Dioxide 30 Anion Gap 10 BUN 16 Creatinine 0.8 Est GFR ( Amer) > 60 Est GFR (Non-Af Amer) > 60 POC Glucose (mg/dL) 85 93 Random Glucose 100 Calcium 10.0 Total Bilirubin 0.4 AST 32 ALT 45 Alkaline Phosphatase 203 H Total Protein 6.6 Albumin 3.5 Globulin 3.1 Albumin/Globulin Ratio 1.1 Temp Pulse Resp BP Pulse Ox 97.3 F L 94 H 20 145/84 98 02/06/18 07:53 02/06/18 07:53 02/06/18 07:53 02/06/18 07:53 02/01/18 15:23 Laboratory Results - last 24 hr 02/06/18 02/07/18 02/07/18 22:02 06:15 06:15 WBC 5.7 RBC 4.32 Hgb 12.5 Hct 39.8 MCV 92.1 MCH 28.9 MCHC 31.4 RDW 15.2 H Plt Count 237 MPV 10.4 Sodium 144 Potassium 4.6 Chloride 110 H Carbon Dioxide 27 Anion Gap 12 BUN 15 Creatinine 0.8 Est GFR ( Amer) > 60 Est GFR (Non-Af Amer) > 60 POC Glucose (mg/dL) 89 Random Glucose 95 Calcium 9.8 Total Bilirubin 0.4 AST 30 ALT 53 Alkaline Phosphatase 195 H Total Protein 6.7 Albumin 3.6 Globulin 3.1 Albumin/Globulin Ratio 1.2 02/07/18 12:59 WBC RBC Hgb Hct MCV MCH MCHC RDW Plt Count MPV Sodium Potassium Chloride Carbon Dioxide Anion Gap BUN Creatinine Est GFR ( Amer) Est GFR (Non-Af Amer) POC Glucose (mg/dL) 158 H Random Glucose Calcium Total Bilirubin AST ALT Alkaline Phosphatase Total Protein Albumin Globulin Albumin/Globulin Ratio Temp Pulse Resp BP Pulse Ox 98.3 F 86 20 77/47 L 98 02/07/18 07:37 02/07/18 07:37 02/07/18 07:37 02/07/18 07:37 02/01/18 15:23 Laboratory Results - last 24 hr 02/09/18 02/09/18 02/10/18 16:30 20:56 08:26 WBC RBC Hgb Hct MCV MCH MCHC RDW Plt Count MPV Gran % Lymph % (Auto) [place] % (Auto) Eos % (Auto) Baso % (Auto) Gran # Lymph # (Auto) [place] # (Auto) Eos # (Auto) Baso # (Auto) POC Glucose (mg/dL) 120 H 132 H 81 02/10/18 02/10/18 11:01 12:32 WBC 7.0 D RBC 4.25 Hgb 12.4 Hct 39.5 MCV 92.9 MCH 29.2 MCHC 31.4 RDW 15.1 H Plt Count 241 MPV 10.6 Gran % 71.6 H Lymph % (Auto) 18.7 L [place] % (Auto) 8.3 H Eos % (Auto) 1.1 L Baso % (Auto) 0.3 Gran # 4.99 Lymph # (Auto) 1.3 [place] # (Auto) 0.6 Eos # (Auto) 0.1 Baso # (Auto) 0.02 POC Glucose (mg/dL) 110 no signs of arganulocytosis PT was registered to [facility] DSM 5 Symptoms Update: shortly patient is 62-year- female, reported h/o Bipolar disorder, not known h/ o suicidal attempts, not known h/o psychiatric admissions, [facility] [place] where [facility] getting [facility] care for orthopedic surgery, pt was transferred from the facility for evaluation of disorganized, psychotic, agitated and aggressive behavior. As per report from the [place] facility, pt was sexually preoccupied/constantly disrobing or walking around naked, pt was also responding to internal stimuli, pt also broke drawers in facility, was pouring water over other residents, previously pt was in assisted living, pt was able to sign consent for treatment. patient still has episodes of agitated, disorganized behavior, pt is paranoid, screaming that she committed a crime and she will be punished. collaterals from pt's psychiatrist Dr. Gamez, pt was on zyprexa,but developed severe EPS, which could be contributed to pt's fall and subsequent hip fracture. pt had h/o manic episodes with sexual provocative behavior, pt wears "clown-like" make up h/o attempt to seduce others in her vicinity. [place] pt tolerated relatively well, but [place] , recommended to use other meds than lithium, kidney function is affected and [place] is not recommended as of now. 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 pt has no side effects of meds but meds not effective. Impression: Schizoaffective disorder Rule out delirium due to general medical condition including UTI, lithium toxicity Medication Change: Yes (clozaril started) Medical Record Reviewed: Yes Consults ordered or reviewed: medical consult appreciated, nephrology consult appreciated. discussed case with Dr. Adams 02/04/18, sodium was climbing up, we'll of course patient drinking plenty of water discussed with Dr. Jaffe 02/04/18, he shouldn't should continue antibiotics for another 5 days, last dose February 09 current labs wnl Mental Status Examination - Cognitive Function Orientation: Person Memory: Impaired Attention: Poor Concentration: Poor Association: Loose Fund of Knowledge: Poor - Mood Mood: Depressed, Anxious - Affect Affect: Flat - Formal Thought Process Formal Thought Process: Delusions, Paranoia, Loosening of associations - Suicidal Ideation Suicidal Ideation: No - Homicidal Ideation Homicidal Ideation: No Goal/Treatment Plan - Goal/Treatment Plan Need for Continued Stay: Remain at risks for inpatient hospitalization, Severe depression anxiety, Discharge may exacerbated symptoms, Failed transitioning, Severe functional impairment Progress Toward Problem(s) and Goals/Treatment Plan: milieu/structure/supportive therapy seroquel discontinued Clozaril 12.5mg hs on titration schedule Pt was registered on [facility] on weekly monitoring blood work for next thorazine 100mg po tid for psychosis, will be tapered down, pt was not improving on it depakote 250mg po bid and hs for mood stabilization depakote level tomorrow am Xanax1 mg 3 times a day scheduled geodon as needed sonata as needed nephrology and medical team involved SW consultation for discharge plan and social issues psychiatrist was contacted, awaiting for call back Family involvement Follow up on labs Will monitor closely Pt was educated about risk/benefits and alternatives of medications, coping strategies (safety plan, suicide prevention), relapse prevention, importance of follow up with psychiatrist and therapist, stay away from drugs/alcohol/smoking patient still required to be on one-to-one Estimated Date of D/C: 02/18/18
[2018-02-10] MEDS: Promethazine DM 6.25 mg-15 mg/5 ml Syrup PO PRN (17:35)
[2018-02-10] MEDS: Divalproex 250 mg ER (ONCE DAILY formulation) PO SCH (21:07)
[2018-02-11] MEDS: Lactobacillus Acidophilus 500 MU Cap PO SCH (07:48)
[2018-02-11] MEDS: Divalproex 250 mg DR (BID formulation) PO SCH ×2 (07:49→15:05)
[2018-02-11] MEDS: Amoxicillin-Clav 500-125 mg Tab PO SCH ×2 (07:49→15:05)
[2018-02-11] MEDS: Insulin Reg-MEDIUM-Coverage SC SCH ×3 (07:50→23:22)
[2018-02-11] MEDS: oxyCODONE 5 mg Immediate Release Tab PO SCH ×2 (08:00→15:00)
[2018-02-11] MEDS ORDERED: Promethazine DM 6.25 mg-15 mg/5 ml Syrup PO PRN (11:36)
[2018-02-11] MEDS: Enoxaparin 30 mg Syringe SC SCH (12:15)
--- NOTE | 2018-02-11 12:27 | PCM.PYCHPN ---
Psychiatric Progress Note - Psychiatric Progress Note Patient seen today, length of contact: 25 min Problems Identified/Issues Discussed: I reviewed assessment and recent notes. Patient is a 62-year- female, reported h/o Bipolar disorder, no known history of suicidal attempts, or prior psychiatric admissions who was transferred from the [facility] in [place] (where she was getting subacute care for orthopedic surgery) for evaluation of disorganized, psychotic, agitated and aggressive behavior. As per report from the [place] facility, pt was sexually preoccupied/constantly disrobing or walking around naked, responding to internal stimuli, breaking drawers and pouring water over other residents I attempted to interview patient at bedside and again during treatment team meeting today. She remains disoriented and delusional though she has been cooperative with medications and staff requests. She is fixated on this belief that she "committed a sin to the lord, I am so sad" and wants help. In this respect, she is willing to work with treatment team and she readily signed treatment plan. She still has episodes of paranoia and loud hysteria, usually revolving around her delusion of committing a sin. She can sustain focus only for short periods of time. Her grooming is poor. Patient remains unpredictable and continues to require a 1:1 sitter for safety. Patient denies any current discomfort or pain. She doesnt appear to be in any physical distress. Insight is poor, judgement is fair. Diagnostic Results: Schizoaffective disorder Rule out delirium due to general medical condition including UTI, lithium toxicity Medication Change: Yes (clozaril titration) Medical Record Reviewed: Yes Mental Status Examination - Cognitive Function Orientation: Person Memory: Impaired Attention: Poor Concentration: Poor Association: Loose Fund of Knowledge: Poor - Mood Mood: Depressed, Anxious - Affect Affect: Flat - Formal Thought Process Formal Thought Process: Delusions ("committed a sin to the lord, I am so sad"), Paranoia, Loosening of associations - Suicidal Ideation Suicidal Ideation: No - Homicidal Ideation Homicidal Ideation: No Goal/Treatment Plan - Goal/Treatment Plan Need for Continued Stay: Remain at risks for inpatient hospitalization, Severe depression anxiety, Discharge may exacerbated symptoms, Failed transitioning, Severe functional impairment Progress Toward Problem(s) and Goals/Treatment Plan: * c/w current tx and plan, c/w 1:1 * Clozaril 12.5 mg HS initiated on 02/10/18 * Clozaril increased to 25 mg HS on 02/11/18 * Xanax 0.5 mg BID and 1 mg HS for anxiety * Thorazine 100 mg po bid and 100 mg hs for disorganization, paranoia, delusions * Depakote 250 mg po bid and 250 mg HS for mood and impulse control 02/11/18 07:00 Valproic Acid 61 * Sonata 10 mg HS for insomnia * Vitals reviewed and noted below: 02/10/18 02/11/18 06:56 06:23 Temperature 98.5 F 97.6 F Pulse Rate 88 86 Respiratory 19 20 Rate Blood Pressure 118/75 112/68 Estimated Date of D/C: 02/18/18
--- NOTE | 2018-02-11 12:57 | RAD ---
HISTORY: cough COMPARISON: 02/01/2018 FINDINGS: LUNGS: No active pulmonary disease. PLEURA: No significant pleural effusion identified, no pneumothorax apparent. CARDIOVASCULAR: Normal. OSSEOUS STRUCTURES: No significant abnormalities. VISUALIZED UPPER ABDOMEN: Normal. OTHER FINDINGS: None. IMPRESSION: No active disease.
--- NOTE | 2018-02-11 14:05 | PCM.BM ---
<ArcadioHolly Y - Last Filed: 02/11/18 14:05> Treatment Plan Problems - Problems identified on initial assessmt Agitated/Aggressive Behavior Date Initiated: 02/01/18 Time Initiated: 20:15 Assessment reference: NA Status: Active Priority: 1 Delusions Date Initiated: 02/01/18 Time Initiated: 20:15 Assessment reference: NA Status: Active Priority: 2 Thought Process Date Initiated: 02/01/18 Time Initiated: 20:15 Assessment reference: NA Status: Active Priority: 3 Ineffective Coping Date Initiated: 02/01/18 Time Initiated: 20:15 Assessment reference: NA Status: Active Priority: 4 Treatment assets and liabiliti Patient Assests: good past tx response Patient Liabilities: poor support system, imparied memory - Milieu Protocol Maintain good personal hygiene: daily Encourage regular showers, every shift Remind patient to perform daily oral care, every shift Assist patient to perform ADL's Maintain personal safety: every shift Educate patient to report safety concerns to staff, every shift Monitor environment for contraband/sharps Medication safety: Monitor for expected outcome, potential side effects: every shift, Assess barriers to learning: every shift, Assess readiness for medication education: every shift Milieu Narrative: * c/w current tx and plan, c/w 1:1 * Clozaril 12.5 mg HS initiated on 02/10/18 * Clozaril increased to 25 mg HS on 02/11/18 * Xanax 0.5 mg BID and 1 mg HS for anxiety * Thorazine 100 mg po bid and 100 mg hs for disorganization, paranoia, delusions * Depakote 250 mg po bid and 250 mg HS for mood and impulse control 02/11/18 07:00 Valproic Acid 61 * Sonata 10 mg HS for insomnia * Vitals reviewed and noted below: 02/10/18 02/11/18 06:56 06:23 Temperature 98.5 F 97.6 F Pulse Rate 88 86 Respiratory 19 20 Rate Blood Pressure 118/75 112/68 Family Contact Family contact: Patient agrees to contact Family contact name: Keely Lwo([phone]) sister Family contacted how many times per week?: 2 - Outside Agency [facility] Care involvment: Information-sharing - Goals for Treatment Patient goals for treatment: Unable to identify Discharge/Continuing Care - Education Needs Education Needs: Patient Medication, Patient Diagnosis/Disease Process, Patient Coping Skills, Patient Anger Management skills, Patient Placement options, Patient Community resources, Patient Activities of Daily Living, Patient Pain, Patient Nutrition, Patient Uses of Medical Equipment, Patient Health Practices/ Safety, Patient Personal Hygiene/Grooming, Patient Aftercare Safety Plan - Discharge Discharge Criteria: Tolerates medication w/o severe side effects, Free of agitation - Treatment Team Participation Patient/Family/SO Statement: * c/w current tx and plan, c/w 1:1 * Clozaril 12.5 mg HS initiated on 02/10/18 * Clozaril increased to 25 mg HS on 02/11/18 * Xanax 0.5 mg BID and 1 mg HS for anxiety * Thorazine 100 mg po bid and 100 mg hs for disorganization, paranoia, delusions * Depakote 250 mg po bid and 250 mg HS for mood and impulse control 02/11/18 07:00 Valproic Acid 61 * Sonata 10 mg HS for insomnia * Vitals reviewed and noted below: 02/10/18 02/11/18 06:56 06:23 Temperature 98.5 F 97.6 F Pulse Rate 88 86 Respiratory 19 20 Rate Blood Pressure 118/75 112/68 Treatment Plan Review - Problem Agitated/Aggressive Behavior Time Initiated: 20:15 Delusions Time Initiated: 20:15 Thought Process Time Initiated: 20:15 Ineffective Coping Time Initiated: 20:15 <Windy Haynes - Last Filed: 02/11/18 18:42> Treatment Plan Review - Problem Delusions Date Initiated: 02/11/18 Progress toward outcomes: unchanged Thought Process Date Initiated: 02/11/18 Progress toward outcomes: unchanged Ineffective Coping Date Initiated: 02/11/18 Progress toward outcomes: unchanged
[2018-02-11] MEDS: Albuterol-Ipratrop 3 mg / 0.5 (3 ml) UD IH SCH ×2 (14:50→22:00)
--- NOTE | 2018-02-11 15:49 | PN ---
DATE: SUBJECTIVE: I saw her in the Psych floor. She is sitting out of bed to a chair with a one-to-one. She is alert. She was kind of calm at this time. PHYSICAL EXAMINATION: VITAL SIGNS: A 97.6 temp, 86 pulse, 112/68 blood pressure, 20 respiratory rate. HEENT: Head is atraumatic, normocephalic. HEART: Regular rate. LUNGS: Clear to auscultation with decreased breath sounds. Lungs are clear. ABDOMEN: Soft, obese, and nontender. EXTREMITIES: No edema. MEDICATIONS: She is currently on Ativan, Augmentin, Bacid, , Colace, Depakote, Feosol, folic acid, Lovenox, Humulin, Maalox, milk of magnesia, oxycodone, Phenergan DM, DuoNebs, Sonata, Thorazine, Tylenol, and Xanax. LABORATORY DATA: She has a 7 white count yesterday with 12.4 hemoglobin, and 241 platelets. Last blood sugar was 97. I got a call this afternoon that she was coughing and congested, so I gave her the nebulizer and the Phenergan. She is already on Augmentin. We did a chest x-ray, waiting for the results. It looks good to me when I saw it, and we will get labs tomorrow, so we will see how she does. We will continue with aggressive treatment and care as per Psychiatry, and I am trying to keep up with the medical issues. Tien Jaffe DO MTDD
[2018-02-11] MEDS: Divalproex 250 mg ER (ONCE DAILY formulation) PO SCH (21:38)
[2018-02-12] MEDS: Albuterol-Ipratrop 3 mg / 0.5 (3 ml) UD IH SCH ×4 (03:00→21:49)
[2018-02-12 07:25] LABS: HEMOGLOBIN 12.5 g/dL (12.0-16.0); MEAN CELL VOLUME 92.9 fl (80.0-105.0); MEAN CORPUSCULAR HEMOGLOBIN 28.6 pg (25.0-35.0); MEAN CORPUSCULAR HGB CONC 30.8 g/dl (31.0-37.0); MEAN PLATELET VOLUME 10.5 fl (7.0-11.0); RBC 4.37 10^6/uL (3.5-6.1); RED CELL DISTRIBUTION WIDTH 14.8 % (11.5-14.5); WHITE BLOOD COUNT 4.9 10^3/ul (4.5-11.0)
[2018-02-12 07:42] LABS: ALB/GLOB RATIO 1.1 (1.1-1.8); ALBUMIN 3.4 g/dL (3.0-4.8); ALT/SGPT 40 U/L (7-56); AST/SGOT 29 U/L (14-36); BLOOD UREA NITROGEN 16 mg/dL (7-21); CALCIUM 9.7 mg/dL (8.4-10.5); GFR AFRICAN-AMERICAN > 60; GFR NON-AFRICAN AMERICAN > 60
[2018-02-12] MEDS: Lactobacillus Acidophilus 500 MU Cap PO SCH (08:24)
[2018-02-12] MEDS: Amoxicillin-Clav 500-125 mg Tab PO SCH ×2 (08:26→17:17)
[2018-02-12] MEDS: Divalproex 250 mg DR (BID formulation) PO SCH ×2 (08:26→17:19)
[2018-02-12] MEDS: oxyCODONE 5 mg Immediate Release Tab PO SCH ×2 (08:26→17:20)
[2018-02-12] MEDS: Enoxaparin 30 mg Syringe SC SCH (08:28)
[2018-02-12] MEDS: Insulin Reg-MEDIUM-Coverage SC SCH ×4 (08:32→21:09)
--- NOTE | 2018-02-12 13:09 | PN ---
DATE: SUBJECTIVE: I saw her resting comfortably in a hospital bed. She is alert and talking, looking for some water. MEDIATIONS: She is on Ativan, Augmentin, Bacid, Flagyl, Colace, Depakote, DuoNebs, Feosol, folic acid, insulin, Lovenox, Maalox, milk of magnesia, oxycodone, Phenergan, Sonata, Thorazine, Tylenol and Xanax. PHYSICAL EXAMINATION: VITAL SIGNS: She has a 97.4 temp, 96 pulse, 118/70 blood pressure, 17 respiratory rate. HEENT: Head is atraumatic, normocephalic. HEART: Regular rate. LUNGS: Decreased breath sounds, but clear. ABDOMEN: Soft. EXTREMITIES: No edema. LABORATORY DATA: She has a 4.9 white count, 12.5 hemoglobin, 40.6 hematocrit with a 216 platelets. 145 sodium, potassium 4.1, BUN 16, creatinine 0.8, GFR is greater than 60, sugar is 87, calcium is 9.7, total bili is 0.2, AST is 29, ALT is 40, alk phos is 172 that came down, total protein 6.6. ASSESSMENT AND PLAN: Overall, I think she is fairly stable at this time. She did have a chest x-ray yesterday and it showed no active disease. We will continue with treatment and care on Kenyatta Patterson. We will watch closely and thank you for letting me participate. She is here for numerous reasons. She has urinary tract infection, high sodium, bipolar. Tien Jaffe DO
[2018-02-12] MEDS: Divalproex 250 mg ER (ONCE DAILY formulation) PO SCH (21:15)
[2018-02-13] MEDS: Albuterol-Ipratrop 3 mg / 0.5 (3 ml) UD IH SCH ×4 (01:55→21:43)
--- NOTE | 2018-02-13 05:36 | PCM.PYCHPN ---
Psychiatric Progress Note - Psychiatric Progress Note Patient seen today, length of contact: 25 min Problems Identified/Issues Discussed: I reviewed assessment and recent notes. Patient is a 62-year- female, reported h/o Bipolar disorder, no known history of suicidal attempts, or prior psychiatric admissions who was transferred from the [facility] in [place] (where she was getting subacute care for orthopedic surgery) for evaluation of disorganized, psychotic, agitated and aggressive behavior. As per report from the [place] facility, pt was sexually preoccupied/constantly disrobing or walking around naked, responding to internal stimuli, breaking drawers and pouring water over other residents I attempted to interview patient at bedside and again during treatment team meeting today. She remains disoriented and delusional though she has been cooperative with medications and staff requests. She is fixated on this belief that she "committed a sin to the lord, I am so sad" and wants help. In this respect, she is willing to work with treatment team and she readily signed treatment plan. She still has episodes of paranoia and loud hysteria, usually revolving around her delusion of committing a sin. She can sustain focus only for short periods of time. Her grooming is poor. Patient remains unpredictable and continues to require a 1:1 sitter for safety. Patient denies any current discomfort or pain. She doesnt appear to be in any physical distress. Insight is poor, judgement is fair. Diagnostic Results: Schizoaffective disorder Rule out delirium due to general medical condition including UTI, lithium toxicity Medication Change: Yes (clozaril titration) Medical Record Reviewed: Yes Mental Status Examination - Cognitive Function Orientation: Person Memory: Impaired Attention: Poor Concentration: Poor Association: Loose Fund of Knowledge: Poor - Mood Mood: Depressed, Anxious - Affect Affect: Flat - Formal Thought Process Formal Thought Process: Delusions ("committed a sin to the lord, I am so sad"), Paranoia, Loosening of associations - Suicidal Ideation Suicidal Ideation: No - Homicidal Ideation Homicidal Ideation: No Goal/Treatment Plan - Goal/Treatment Plan Need for Continued Stay: Remain at risks for inpatient hospitalization, Severe depression anxiety, Discharge may exacerbated symptoms, Failed transitioning, Severe functional impairment Progress Toward Problem(s) and Goals/Treatment Plan: * c/w current tx and plan, c/w 1:1 * Clozaril 12.5 mg HS initiated on 02/10/18 * Clozaril increased to 25 mg HS on 02/11/18 * Clozaril held at 25 mg HS on 02/13/28 due to elevated pulse rates * Clozaril increased to 25 mg po AM and HS on 02/13/18 * Appreciate f/u by Dr. Jaffe on 02/11/18 and 02/12/18 ~provided nebulizer and Phenergan, ordered CXR which showed NAD * Xanax 0.5 mg BID and 1 mg HS for anxiety * Thorazine 100 mg po bid and 100 mg hs for disorganization, paranoia, delusions * Depakote 250 mg po bid and 250 mg HS for mood and impulse control 02/11/18 07:00 Valproic Acid 61 * Sonata 10 mg HS for insomnia * Vitals reviewed and noted below: 02/11/18 02/12/18 15:08 07:00 Temperature 97.4 F L Pulse Rate 103 H 96 H Respiratory 17 Rate Blood Pressure 118/70 Blood Pressure 86 Mean * New weekend labs noted below: 02/12/18 02/12/18 02/12/18 07:00 07:00 07:48 WBC 4.9 D RBC 4.37 Hgb 12.5 Hct 40.6 MCV 92.9 MCH 28.6 MCHC 30.8 L RDW 14.8 H Plt Count 216 MPV 10.5 Sodium 145 Potassium 4.1 Chloride 108 H Carbon Dioxide 27 Anion Gap 15 BUN 16 Creatinine 0.8 Est GFR (Non-Af Amer) > 60 POC Glucose (mg/dL) 81 Random Glucose 87 Calcium 9.7 Total Bilirubin 0.2 AST 29 ALT 40 Alkaline Phosphatase 172 H Total Protein 6.6 Albumin 3.4 Globulin 3.2 Albumin/Globulin Ratio 1.1 Estimated Date of D/C: 02/18/18
[2018-02-13] MEDS: Insulin Reg-MEDIUM-Coverage SC SCH ×8 (08:57→23:25)
[2018-02-13] MEDS: Enoxaparin 30 mg Syringe SC SCH (08:58)
[2018-02-13] MEDS: Divalproex 250 mg DR (BID formulation) PO SCH ×2 (08:58→16:52)
[2018-02-13] MEDS: Lactobacillus Acidophilus 500 MU Cap PO SCH (08:58)
[2018-02-13] MEDS: oxyCODONE 5 mg Immediate Release Tab PO SCH ×2 (08:58→16:53)
[2018-02-13] MEDS: Amoxicillin-Clav 500-125 mg Tab PO SCH ×2 (08:58→16:52)
--- NOTE | 2018-02-13 09:58 | PCM.PYCHPN ---
Psychiatric Progress Note - Psychiatric Progress Note Patient seen today, length of contact: 25 min Patient Chief Complaint: "I committed a sin" Problems Identified/Issues Discussed: I reviewed assessment and recent notes. Patient is a 62-year- female, reported h/o Bipolar disorder, no known history of suicidal attempts, or prior psychiatric admissions who was transferred from the [facility] in [place] (where she was getting subacute care for orthopedic surgery) for evaluation of disorganized, psychotic, agitated and aggressive behavior. As per report from the [place] facility, pt was sexually preoccupied/constantly disrobing or walking around naked, responding to internal stimuli, breaking drawers and pouring water over other residents I attempted to interview patient at bedside again this morning. She remains disoriented and delusional though she has been cooperative with medications and staff requests. Aware she is in a hospital and seems a little calmer and a little more focused though continues to be fixated on belief that she " committed a sin to the lord". Patient keeps illogically repeating that she "wants to be on the second floor to be closer to God". Affect is anxious and upset because of her islam preoccupation and delusions. She is difficult to reassure and still has episodes of paranoia and loud hysteria. She can be redirected but this is sustained only for short periods of time. Her grooming is poor. Patient remains unpredictable and continues to require a 1:1 sitter for safety. Patient also tells me that she is depressed and wants to . Sometimes she thinks about harming herself. She presents as a unreliable historian. Patient denies any current discomfort or pain. She doesn't appear to be in any physical distress. Insight is poor , judgement is fair. Diagnostic Results: Schizoaffective disorder Rule out delirium due to general medical condition including UTI, lithium toxicity Medication Change: Yes (clozaril titration) Medical Record Reviewed: Yes Mental Status Examination - Cognitive Function Orientation: Person Memory: Impaired Attention: Poor Concentration: Poor Association: Loose Fund of Knowledge: Poor - Mood Mood: Depressed (depressed and wants to . Sometimes she thinks about harming herself.), Anxious - Affect Affect: Flat, Other (emotional) - Formal Thought Process Formal Thought Process: Delusions ("committed a sin to the lord, I am so sad"), Paranoia, Loosening of associations - Suicidal Ideation Suicidal Ideation: No - Homicidal Ideation Homicidal Ideation: No Goal/Treatment Plan - Goal/Treatment Plan Need for Continued Stay: Remain at risks for inpatient hospitalization, Severe depression anxiety, Discharge may exacerbated symptoms, Failed transitioning, Severe functional impairment Progress Toward Problem(s) and Goals/Treatment Plan: * c/w current tx and plan, c/w 1:1 * Clozaril 12.5 mg HS initiated on 02/10/18 * Clozaril increased to 25 mg HS on 02/11/18 * Clozaril kept at 25 mg HS on 02/13/28 due to elevated pulse rates * Clozaril increased to 25 mg po AM and HS on 02/13/18 * Appreciate f/u by Dr. Jaffe on 02/11/18 and 02/12/18 ~provided nebulizer and Phenergan, ordered CXR which showed NAD * Xanax 0.5 mg BID and 1 mg HS for anxiety * Thorazine 100 mg po bid and 100 mg hs for disorganization, paranoia, delusions * Depakote 250 mg po bid and 250 mg HS for mood and impulse control 02/11/18 07:00 Valproic Acid 61 * Sonata 10 mg HS for insomnia * Vitals reviewed and noted below: 02/13/18 06:55 Temperature 97.5 F L Pulse Rate 86 Respiratory 20 Rate Blood Pressure 117/64 * New weekend labs noted below: 02/12/18 02/12/18 02/12/18 07:00 07:00 07:48 WBC 4.9 D RBC 4.37 Hgb 12.5 Hct 40.6 MCV 92.9 MCH 28.6 MCHC 30.8 L RDW 14.8 H Plt Count 216 MPV 10.5 Sodium 145 Potassium 4.1 Chloride 108 H Carbon Dioxide 27 Anion Gap 15 BUN 16 Creatinine 0.8 Est GFR (Non-Af Amer) > 60 POC Glucose (mg/dL) 81 Random Glucose 87 Calcium 9.7 Total Bilirubin 0.2 AST 29 ALT 40 Alkaline Phosphatase 172 H Total Protein 6.6 Albumin 3.4 Globulin 3.2 Albumin/Globulin Ratio 1.1 Estimated Date of D/C: 02/18/18
--- NOTE | 2018-02-13 14:03 | PN ---
DATE: SUSUBJECTIVE: 1 saw Kenyatta resting comfortably in a Judith chair with a one to one sitter. She is alert, asking for water, juice or soda. She is on Ativan, Augmentin, Bacid, Clozaril, Colace, Depakote, DuoNebs, Feosol, folic acid, insulin, Lovenox, Maalox, milk of magnesia, oxycodone, Phenergan, Sonata, Thorazine, Tylenol and Xanax. PHYSICAL EXAMINATION: VITAL SIGNS: She has a 97.5 temperature, 86 pulse, 117/64 blood pressure, 20 respiratory rate. HEENT: Head: Atraumatic, normocephalic. HEART: Regular rate. LUNGS: Clear to auscultation. ABDOMEN: Soft, obese, nontender. EXTREMITIES: No edema. LABORATORY DATA: She has a 4.9 white count, 12.5 hemoglobin, 216 platelets. Sodium 145, potassium 4.1, BUN 16, creatinine 0.8, GFR is greater than 60. Then her last blood sugar was 238 with the most part it has been 108, or 120, or 94, or 81, or 87. Calcium is 9.7, total bili is 0.2, AST is 29, ALT is 41, alkaline phosphatase 172, total protein 6.6. Presently, she is not on any medication for diabetes and she had one blood sugar that was quite high. I will put on insulin coverage. I will see which way she goes. She might need to be on insulin unless there was an isolated elevated blood sugar. We will keep an eye on Kenyatta Patterson as per Psychiatry. Tien Jaffe DO
[2018-02-13] MEDS: Divalproex 250 mg ER (ONCE DAILY formulation) PO SCH (22:08)
[2018-02-14] MEDS: Albuterol-Ipratrop 3 mg / 0.5 (3 ml) UD IH SCH ×4 (04:06→19:59)
[2018-02-14 08:05] LABS: HEMOGLOBIN 13.2 g/dL (12.0-16.0); MEAN CELL VOLUME 91.9 fl (80.0-105.0); MEAN CORPUSCULAR HGB CONC 31.6 g/dl (31.0-37.0); MEAN PLATELET VOLUME 10.5 fl (7.0-11.0); RBC 4.55 10^6/uL (3.5-6.1); RED CELL DISTRIBUTION WIDTH 14.6 % (11.5-14.5); WHITE BLOOD COUNT 4.7 10^3/ul (4.5-11.0)
[2018-02-14 08:21] LABS: ALBUMIN 3.5 g/dL (3.0-4.8); ALT/SGPT 35 U/L (7-56); AST/SGOT 24 U/L (14-36); BLOOD UREA NITROGEN 14 mg/dL (7-21); CALCIUM 10.4 mg/dL (8.4-10.5); GFR AFRICAN-AMERICAN > 60; GFR NON-AFRICAN AMERICAN > 60
[2018-02-14] MEDS: Insulin Reg-MEDIUM-Coverage SC SCH ×5 (08:29→21:31)
[2018-02-14] MEDS: Divalproex 250 mg DR (BID formulation) PO SCH ×2 (09:06→16:53)
[2018-02-14] MEDS: Amoxicillin-Clav 500-125 mg Tab PO SCH ×2 (09:06→16:53)
[2018-02-14] MEDS: oxyCODONE 5 mg Immediate Release Tab PO SCH ×2 (09:06→16:53)
[2018-02-14] MEDS: Lactobacillus Acidophilus 500 MU Cap PO SCH (09:06)
[2018-02-14] MEDS: Enoxaparin 30 mg Syringe SC SCH (09:06)
--- NOTE | 2018-02-14 09:49 | PN ---
DATE: SUBJECTIVE: I saw her in the hospital bed in her room with a one-to-one sitter. She slept well. I was told she is alert and comfortable this morning. No complaints. Looking forward to breakfast and she coughs. MEDICATIONS: She is on Ativan, Augmentin, Bacid, Clozaril, Colace, Depakote, DuoNeb, Feosol, folic acid, insulin, Maalox, Lovenox, milk of magnesia, oxycodone, Phenergan, Sonata, Thorazine, Tylenol and Xanax. PHYSICAL EXAMINATION: VITAL SIGNS: She has a 98 temp, 98 pulse, 113/60 blood pressure, 20 respiratory rate. HEENT: Head is atraumatic, normocephalic. HEART: Regular rate. LUNGS: Decreased breath sounds, but clear. ABDOMEN: Soft, obese. EXTREMITIES: No edema. PSYCHIATRIC: She is pleasant. LABORATORY DATA: She has a 4.9 white count, 12.5 hemoglobin, 216 platelets. Her last blood sugar was 97, better; last potassium 4.1; BUN 16; creatinine 0.8. ASSESSMENT AND PLAN: As per Psychiatry, she has urinary tract infection, high sodium, bipolar. As per Psychiatry, for her severe depression and anxiety. We will follow. Tien Jaffe DO
--- NOTE | 2018-02-14 14:44 | PCM.PYCHPN ---
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 patient is too psychotic to understand Medical Problems: New UTI, pt had been at the assisted living facility at [facility] since her ortho surgery 11/2017; anemia pt's PCP is Guido Feliz. Diagnostic Results: 02/02/18 06:50 02/02/18 06:50 Lab Results 02/03/18 11:51: POC Glucose (mg/dL) 97 02/03/18 09:13: POC Glucose (mg/dL) 160 H 02/02/18 23:20: Urine Osmolality 157 L, Ur Random Sodium 12 02/02/18 21:07: POC Glucose (mg/dL) 110 02/02/18 17:01: POC Glucose (mg/dL) 104 02/02/18 09:35: Phosphorus 3.4, Magnesium 2.8 H 02/02/18 09:35: 25-OH Vitamin D Total 25.4 L 02/02/18 09:35: Total Protein (PEP) 6.8, Albumin (PEP) 3.7 L, Wzrlo-5-Dwqkkjilg 0.4 H, Cizdg-5-Gqnftfgfi 0.8, Goqu-6-Vqytfznn 0.4, Ubct-4-Wfjlidqc 0.3, Gamma Globulins 1.1, Abnorm Protein Band 1 TEST NOT PERFORMED, Abnorm Protein Band 2 TEST NOT PERFORMED, Abnorm Protein Band 3 TEST NOT PERFORMED, RANDOLPH & SPEP Interp See note, Serum Immunofixation Pending, Tot [place]/Lambda Ratio Pending, [place] Light Chain Anal Pending, Lambda Light Chain Anal Pending 02/02/18 09:35: PTH Intact Whole Molec 153 H 02/02/18 06:50: RPR Nonreactive 02/02/18 06:50: TSH 3rd Generation 1.05 02/02/18 06:50: Sodium 148, Potassium 3.7, Chloride 113 H, Carbon Dioxide 23, Anion Gap 17, BUN 20, Creatinine 1.0, Est GFR ( Amer) > 60, Est GFR (Non- Af Amer) 56, Random Glucose 115 H, Fasting Glucose 115 H, Calcium 10.7 H, Total Bilirubin 0.8, AST 29, ALT 32, Alkaline Phosphatase 219 H, Total Protein 7.4, Albumin 4.1, Globulin 3.3, Albumin/Globulin Ratio 1.2, Triglycerides 112, Cholesterol 174, LDL Cholesterol Direct 95, HDL Cholesterol 52 02/02/18 06:50: WBC 12.8 H, RBC 4.43, Hgb 12.6, Hct 40.4, MCV 91.2, MCH 28.4, MCHC 31.2, RDW 15.2 H, Plt Count 272, MPV 10.6, Gran % 79.0 H, Lymph % (Auto) 9.8 L, [place] % (Auto) 9.9 H, Eos % (Auto) 0.9 L, Baso % (Auto) 0.4, Gran # 10.09 H, Lymph # (Auto) 1.3, [place] # (Auto) 1.3 H, Eos # (Auto) 0.1, Baso # (Auto) 0.05 02/02/18 06:50: [place] 1.0 02/01/18 16:01: Urine Opiates Screen Negative, Urine Methadone Screen Negative, Ur Barbiturates Screen Negative, Ur Phencyclidine Scrn Negative, Ur Amphetamines Screen Negative, U Benzodiazepines Scrn Negative, U Oth Cocaine Metabols Negative, U Cannabinoids Screen Negative 02/01/18 16:01: Urine Color Yellow, Urine Appearance Sl cloudy, Urine pH 6.0, Ur Specific [place] 1.010, Urine Protein Negative, Urine Glucose (UA) Negative, Urine Ketones Negative, Urine Blood Small H, Urine Nitrate Negative, Urine Bilirubin Negative, Urine Urobilinogen 0.2, Ur Leukocyte Esterase Large H, Urine RBC 0 - 2, Urine WBC 10 - 15, Urine Bacteria Trace 02/01/18 13:47: [place] 1.5 H 02/01/18 13:47: Alcohol, Quantitative < 10 02/01/18 13:47: Salicylates < 1 L, Acetaminophen < 10.0 L 02/01/18 13:47: Sodium 144, Potassium 3.5 L, Chloride 109 H, Carbon Dioxide 25, Anion Gap 13, BUN 19, Creatinine 1.2, Est GFR ( Amer) 55, Est GFR (Non- Af Amer) 46, Random Glucose 112 H, Calcium 10.8 H, Total Bilirubin 0.5, AST 31, ALT 38, Alkaline Phosphatase 189 H, Total Protein 7.0, Albumin 3.9, Globulin 3.1 , Albumin/Globulin Ratio 1.3 02/01/18 13:47: WBC 15.0 H, RBC 4.39, Hgb 12.8, Hct 39.7, MCV 90.4, MCH 29.2, MCHC 32.2, RDW 15.0 H, Plt Count 242, MPV 10.0, Gran % 81.7 H, Lymph % (Auto) 8.3 L, [place] % (Auto) 9.5 H, Eos % (Auto) 0.3 L, Baso % (Auto) 0.2, Gran # 12.24 H, Lymph # (Auto) 1.2, [place] # (Auto) 1.4 H, Eos # (Auto) 0.0, Baso # (Auto) 0.03 Vital Signs Temp Pulse Resp BP Pulse Ox 02/03/18 07:34 97.6 F 87 20 130/78 02/02/18 16:00 106 H 121/71 02/02/18 07:33 98.0 F 57 L 20 146/84 02/01/18 22:00 20 02/01/18 15:23 104 H 18 151/87 H 98 02/01/18 13:14 98.3 F 98 H 18 138/78 99 Laboratory Results - last 24 hr 02/02/18 02/03/18 02/04/18 09:35 21:17 07:15 WBC 8.5 D RBC 4.33 Hgb 12.6 Hct 39.8 MCV 91.9 MCH 29.1 MCHC 31.7 RDW 15.3 H Plt Count 278 MPV 10.2 Sodium Potassium Chloride Carbon Dioxide Anion Gap BUN Creatinine Est GFR ( Amer) Est GFR (Non-Af Amer) POC Glucose (mg/dL) 154 H Random Glucose Calcium Total Bilirubin AST ALT Alkaline Phosphatase Total Protein Albumin Globulin Albumin/Globulin Ratio Serum Immunofixation Not detected Tot [place]/Lambda Ratio 2.28 [place] Light Chain Anal 239 Lambda Light Chain Anal 105 02/04/18 02/04/18 02/04/18 07:15 07:37 12:08 WBC RBC Hgb Hct MCV MCH MCHC RDW Plt Count MPV Sodium 151 H Potassium 4.3 Chloride 114 H Carbon Dioxide 27 Anion Gap 14 BUN 16 Creatinine 0.8 Est GFR ( Amer) > 60 Est GFR (Non-Af Amer) > 60 POC Glucose (mg/dL) 102 95 Random Glucose 112 H Calcium 10.6 H Total Bilirubin 0.4 AST 24 ALT 30 Alkaline Phosphatase 194 H Total Protein 7.0 Albumin 3.7 Globulin 3.3 Albumin/Globulin Ratio 1.1 Serum Immunofixation Tot [place]/Lambda Ratio [place] Light Chain Anal Lambda Light Chain Anal 02/04/18 16:11 WBC RBC Hgb Hct MCV MCH MCHC RDW Plt Count MPV Sodium Potassium Chloride Carbon Dioxide Anion Gap BUN Creatinine Est GFR ( Amer) Est GFR (Non-Af Amer) POC Glucose (mg/dL) 88 Random Glucose Calcium Total Bilirubin AST ALT Alkaline Phosphatase Total Protein Albumin Globulin Albumin/Globulin Ratio Serum Immunofixation Tot [place]/Lambda Ratio [place] Light Chain Anal Lambda Light Chain Anal Temp Pulse Resp BP Pulse Ox 97.9 F 80 20 134/78 98 02/04/18 07:00 02/04/18 07:00 02/04/18 07:00 02/04/18 07:00 02/01/18 15:23 Abnormal Lab Results 02/05/18 02/05/18 02/06/18 16:26 21:13 07:00 WBC 6.5 D RBC 4.29 Hgb 12.5 Hct 39.3 MCV 91.6 MCH 29.1 MCHC 31.8 RDW 15.1 H Plt Count 260 MPV 10.6 Sodium Potassium Chloride Carbon Dioxide Anion Gap BUN Creatinine Est GFR ( Amer) Est GFR (Non-Af Amer) POC Glucose (mg/dL) 98 99 Random Glucose Calcium Total Bilirubin AST ALT Alkaline Phosphatase Total Protein Albumin Globulin Albumin/Globulin Ratio 02/06/18 02/06/18 02/06/18 07:00 07:40 11:06 WBC RBC Hgb Hct MCV MCH MCHC RDW Plt Count MPV Sodium 145 Potassium 4.1 Chloride 109 H Carbon Dioxide 30 Anion Gap 10 BUN 16 Creatinine 0.8 Est GFR ( Amer) > 60 Est GFR (Non-Af Amer) > 60 POC Glucose (mg/dL) 85 93 Random Glucose 100 Calcium 10.0 Total Bilirubin 0.4 AST 32 ALT 45 Alkaline Phosphatase 203 H Total Protein 6.6 Albumin 3.5 Globulin 3.1 Albumin/Globulin Ratio 1.1 Temp Pulse Resp BP Pulse Ox 97.3 F L 94 H 20 145/84 98 02/06/18 07:53 02/06/18 07:53 02/06/18 07:53 02/06/18 07:53 02/01/18 15:23 Laboratory Results - last 24 hr 02/06/18 02/07/18 02/07/18 22:02 06:15 06:15 WBC 5.7 RBC 4.32 Hgb 12.5 Hct 39.8 MCV 92.1 MCH 28.9 MCHC 31.4 RDW 15.2 H Plt Count 237 MPV 10.4 Sodium 144 Potassium 4.6 Chloride 110 H Carbon Dioxide 27 Anion Gap 12 BUN 15 Creatinine 0.8 Est GFR ( Amer) > 60 Est GFR (Non-Af Amer) > 60 POC Glucose (mg/dL) 89 Random Glucose 95 Calcium 9.8 Total Bilirubin 0.4 AST 30 ALT 53 Alkaline Phosphatase 195 H Total Protein 6.7 Albumin 3.6 Globulin 3.1 Albumin/Globulin Ratio 1.2 02/07/18 12:59 WBC RBC Hgb Hct MCV MCH MCHC RDW Plt Count MPV Sodium Potassium Chloride Carbon Dioxide Anion Gap BUN Creatinine Est GFR ( Amer) Est GFR (Non-Af Amer) POC Glucose (mg/dL) 158 H Random Glucose Calcium Total Bilirubin AST ALT Alkaline Phosphatase Total Protein Albumin Globulin Albumin/Globulin Ratio Temp Pulse Resp BP Pulse Ox 98.3 F 86 20 77/47 L 98 02/07/18 07:37 02/07/18 07:37 02/07/18 07:37 02/07/18 07:37 02/01/18 15:23 Laboratory Results - last 24 hr 02/09/18 02/09/18 02/10/18 16:30 20:56 08:26 WBC RBC Hgb Hct MCV MCH MCHC RDW Plt Count MPV Gran % Lymph % (Auto) [place] % (Auto) Eos % (Auto) Baso % (Auto) Gran # Lymph # (Auto) [place] # (Auto) Eos # (Auto) Baso # (Auto) POC Glucose (mg/dL) 120 H 132 H 81 02/10/18 02/10/18 11:01 12:32 WBC 7.0 D RBC 4.25 Hgb 12.4 Hct 39.5 MCV 92.9 MCH 29.2 MCHC 31.4 RDW 15.1 H Plt Count 241 MPV 10.6 Gran % 71.6 H Lymph % (Auto) 18.7 L [place] % (Auto) 8.3 H Eos % (Auto) 1.1 L Baso % (Auto) 0.3 Gran # 4.99 Lymph # (Auto) 1.3 [place] # (Auto) 0.6 Eos # (Auto) 0.1 Baso # (Auto) 0.02 POC Glucose (mg/dL) 110 no signs of arganulocytosis PT was registered to Clozaril [facility] DSM 5 Symptoms Update: shortly patient is 62-year- female, reported h/o Bipolar disorder, not known h/ o suicidal attempts, not known h/o psychiatric admissions, pt was transferred from the [facility] in [place] where she was getting subacute care for orthopedic surgery, pt was transferred from the facility for evaluation of disorganized, psychotic, agitated and aggressive behavior. As per report from the [place] facility, pt was sexually preoccupied/constantly disrobing or walking around naked, pt was also responding to internal stimuli, pt also broke drawers in facility, was pouring water over other residents, previously pt was in assisted living, pt was able to sign consent for treatment. patient still has episodes of agitation, disorganized behavior, pt is paranoid , screaming, but with some positive changes, pt did not try to hurt and bite people. pt also reported to have a good night sleep. pt was started on clozaril , pt tolerates it well. last week collaterals from pt's psychiatrist Dr. Gamez, pt was on zyprexa,but developed severe EPS, which could be contributed to pt's fall and subsequent hip fracture. pt had h/o manic episodes with sexual provocative behavior, pt wears "clown-like" make up h/o attempt to seduce others in her vicinity. 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 pt has no side effects of meds but meds not effective. Impression: Schizoaffective disorder Rule out delirium due to general medical condition including UTI, lithium toxicity Medication Change: Yes (clozaril titration, thorazin decreased) Medical Record Reviewed: Yes Consults ordered or reviewed: medical consult appreciated, nephrology consult appreciated. discussed case with Dr. Adams 02/04/18, sodium was climbing up, we'll of course patient drinking plenty of water discussed with Dr. Jaffe 02/04/18, he shouldn't should continue antibiotics for another 5 days, last dose February 09 current labs wnl Mental Status Examination - Cognitive Function Orientation: Person Memory: Impaired Attention: Poor Concentration: Poor Association: Loose Fund of Knowledge: Poor - Mood Mood: Depressed (depressed and wants to . Sometimes she thinks about harming herself.), Anxious - Affect Affect: Flat, Other (emotional) - Formal Thought Process Formal Thought Process: Delusions ("committed a sin to the lord, I am so sad"), Paranoia, Loosening of associations - Suicidal Ideation Suicidal Ideation: No - Homicidal Ideation Homicidal Ideation: No Goal/Treatment Plan - Goal/Treatment Plan Need for Continued Stay: Remain at risks for inpatient hospitalization, Severe depression anxiety, Discharge may exacerbated symptoms, Failed transitioning, Severe functional impairment Progress Toward Problem(s) and Goals/Treatment Plan: milieu/structure/supportive therapy seroquel discontinued Clozaril on titration schedule Pt was registered on Clozaril [facility] on weekly monitoring blood work for next 02/17/18 thorazine 100mg po bid for psychosis, will be tapered down, pt was not improving on it depakote 250mg po bid and hs for mood stabilization depakote level tomorrow am Xanax1 mg 3 times a day scheduled geodon as needed sonata as needed nephrology and medical team involved SW consultation for discharge plan and social issues psychiatrist was contacted, awaiting for call back Family involvement Follow up on labs Will monitor closely Pt was educated about risk/benefits and alternatives of medications, coping strategies (safety plan, suicide prevention), relapse prevention, importance of follow up with psychiatrist and therapist, stay away from drugs/alcohol/smoking patient still required to be on one-to-one Estimated Date of D/C: 02/18/18
--- NOTE | 2018-02-14 14:46 | CP.PCM.PN ---
Subjective - Date & Time of Evaluation Date of Evaluation: 02/14/18 Time of Evaluation: 14:44 - Subjective Subjective: Nephrology Consultation: Assessment: Stable Mild Hypernatremia and mild Hypercalcemia likely due to [place] as it can cause nephrogenic DI and hyperparathyroidism possible UTI elevated BP Bipolar disorder Plan No acute need for renal replacement therapy at this time. BP control acceptable for now pt to drink plenty of fluids/water. Discussed with the nursing staff to allow patient to have unrestricted access to water continue with water 250 mL every 4 hours scheduled dose hold vit D supplements for now Will consider calcimimetic as Sensipar if calcium stays elevated. Ca better for now Dose meds/antibiotics for normal GFR. Further work up/management as per primary team Re: medications from psychiatry perspective, consider alternative medications to lithium considering current complications likely due to [place] (as mentioned above). If need to use, consider it with amiloride and with close monitoring of [place] levels. will add chlorthalidone 25 mg/day for management of hypernatremia. nursing staff again was reinforced to allow pt unrestricted access to water Thanks for allowing me to participate in care of your patient. Will follow further PRN basis. Please call if any Qs. d/w team Dr Jaquan Adams Office: [phone] Chief Complaint; unable reason for consult: electrolyte abnormalities source of Info: as per EMR HPI: Pt is a 62 F with hx of bipolar disorder, on lithium presented with complaints of behavioral changes and hallucinations. renal consult for electrolytes abnormality and UTI pt unable to provide much reliable hx ROS: Unable to reliably obtain from the patient Physical Examination: General Appearance: Comfortable, in no acute respiratory distress, co-operative . Vitals reviewed and noted as below Head; Atraumatic, normocephalic ENT: no ulcers no thrush. Tongue is midline/dry. Oropharynx: no rash or ulcers. EYES: Pupils are equal, round and reactive to light accommodation. Eye muscles and extraocular movement intact. Sclera is anicteric. Neck; supple no lymphadenopathy, no thyromegaly or bruit Lungs: Normal respiratory rate/effort. Breath sounds bilateral equal and clear Heart: Normal rate. s1s2 normal. No rub or gallop. Extremities: no edema. No varicose veins Neurological: Patient is alert, awake and disoriented. No focal deficit. Strength bilateral appropriate and equal Skin: Warm and dry. Normal turgor. No rash. Palpitation: Normal elasticity for age Abdomen: Abdomen is soft. Bowel sounds +. There is no abdominal tenderness, no guarding/rigidity no organomegaly Psych: lack insight and hallucinations + MSK: no joint tenderness or swelling. Digits and nails normal, no deformity : kidney or bladder not palpable Labs/imaging reviewed. Past medical history, past surgical history, family history, social history, allergy reviewed and noted as below Family hx: no hx of CKD. Rest non-contributory Workup PTH 153 vitamin D level 25 urine osmolality 157 Objective - Vital Signs/Intake and Output Vital Signs (last 24 hours): Temp Pulse Resp BP Pulse Ox 98.0 F 98 H 20 113/60 98 02/14/18 07:30 02/14/18 07:30 02/14/18 07:30 02/14/18 07:30 02/01/18 15:23 - Medications Medications: Current Medications Acetaminophen (Tylenol 325mg Tab) 650 mg PO Q6H PRN PRN Reason: Pain, moderate (4-7) Al Hydrox/Mg Hydrox/Simethicone (Maalox Plus 30 Ml) 30 ml PO DAILY PRN PRN Reason: Indigestion / Heartburn Albuterol/Ipratropium (Duoneb 3 Mg/0.5 Mg (3 Ml) Ud) 3 ml IH [id number] [facility] Last Admin: 02/14/18 13:14 Dose: 3 ml Alprazolam (Xanax) 0.5 mg PO BID [facility] PRN Reason: Protocol Last Admin: 02/14/18 09:07 Dose: 0.5 mg Alprazolam (Xanax) 1 mg PO HS [facility] PRN Reason: Protocol Last Admin: 02/13/18 22:09 Dose: 1 mg Amoxicillin/Clavulanate Potassium (Augmentin 500 Mg-125 Mg Tab) 1 tab PO BID [facility] PRN Reason: Protocol Last Admin: 02/14/18 09:06 Dose: 1 tab Chlorpromazine (Thorazine) 25 mg IM BID PRN; Protocol PRN Reason: severe agitation Last Admin: 02/13/18 12:21 Dose: 25 mg Chlorpromazine (Thorazine) 100 mg PO BID [facility] PRN Reason: Protocol Last Admin: 02/14/18 09:18 Dose: 100 mg Chlorthalidone (Hygroton) 25 mg PO DAILY [facility] Last Admin: 02/14/18 11:47 Dose: 25 mg Clozapine (Clozaril) 25 mg PO DAILY [facility] PRN Reason: Protocol Last Admin: 02/14/18 09:06 Dose: 25 mg Clozapine (Clozaril) 50 mg PO HS [facility] PRN Reason: Protocol Divalproex Sodium (Depakote Dr (*Bid*)) 250 mg PO BID [facility] PRN Reason: Protocol Last Admin: 02/14/18 09:06 Dose: 250 mg Divalproex Sodium (Depakote Er(Once Daily)) 250 mg PO HS [facility] Last Admin: 02/13/18 22:08 Dose: 250 mg Docusate Sodium (Colace) 100 mg PO BID [facility] Last Admin: 02/14/18 09:07 Dose: 100 mg Enoxaparin Sodium (Lovenox) 30 mg SC DAILY [facility] PRN Reason: Protocol Last Admin: 02/14/18 09:06 Dose: 30 mg Ferrous Sulfate (Feosol) 324 mg PO DAILY [facility] Last Admin: 02/14/18 09:06 Dose: 324 mg Folic Acid (Folic Acid) 1 mg PO DAILY [facility] Last Admin: 02/14/18 09:07 Dose: 1 mg Insulin Human Regular (Humulin R Med) 0 units SC [facility] PRN Reason: Protocol Last Admin: 02/14/18 11:47 Dose: Not Given Lactobacillus Acidophilus (Bacid Acidophilus) 1 cap PO DAILY [facility] Last Admin: 02/14/18 09:06 Dose: 1 cap Lorazepam (Ativan) 1 mg IM Q8H PRN; Protocol PRN Reason: Anxiety Last Admin: 02/13/18 12:21 Dose: 1 mg Lorazepam (Ativan) 1 mg PO Q6H PRN; Protocol PRN Reason: Anxiety Last Admin: 02/11/18 12:46 Dose: 1 mg Magnesium Hydroxide (Milk Of Magnesia) 30 ml PO DAILY PRN PRN Reason: Constipation Oxycodone HCl (Oxycodone Immediate Release Tab) 5 mg PO BID [facility] Last Admin: 02/14/18 09:06 Dose: 5 mg Promethazine HCl/Dextromethorphan (Phenergan Dm Syrup) 5 ml PO Q6H PRN PRN Reason: Cough Zaleplon (Sonata) 10 mg PO HS [facility] Last Admin: 02/13/18 22:08 Dose: 10 mg - Labs Labs: 02/14/18 07:30 02/14/18 07:30
[2018-02-14 17:53] VITALS: O2SAT 94
--- NOTE | 2018-02-14 17:58 | CP.PCM.PN ---
Subjective - Date & Time of Evaluation Date of Evaluation: 02/14/18 Time of Evaluation: 17:57 - Subjective Subjective: PGY-[address] Jaffe CC: Received page from JIMBO Sierra that pt has "respiratory issue, breath sound rhoncous" Kenyatta Bejarano, 62F, admitted to psych on 02/02 for severe depression and anxiety. On 1:1 for confusion and safety. Medical consult noted coughs starting on 02/08, on Duoneb 3q6, augmentin (day 5), phenergan DM 5q6 PRN. CXR (02/01) showed no active disease. EKG (02/01) QTc 482. She is being treated for diabetic insipidus. Pt is receiving about 4L of Oral H2O / day. Pt is a poor historian. Per nursing assistance (1:1), pt has increase dry cough today, non-productive. Pt urinates "a lot", she is incontinent. PMH: schizoaffective, disruptive behavior, hallucination, paranoid. dementia NKDA Objective - Vital Signs/Intake and Output Vital Signs (last 24 hours): Temp Pulse Resp BP Pulse Ox 96.8 F L 101 H 20 132/82 94 L 02/14/18 17:52 02/14/18 17:52 02/14/18 17:52 02/14/18 17:52 02/14/18 17:52 - Medications Medications: Current Medications Acetaminophen (Tylenol 325mg Tab) 650 mg PO Q6H PRN PRN Reason: Pain, moderate (4-7) Al Hydrox/Mg Hydrox/Simethicone (Maalox Plus 30 Ml) 30 ml PO DAILY PRN PRN Reason: Indigestion / Heartburn Albuterol/Ipratropium (Duoneb 3 Mg/0.5 Mg (3 Ml) Ud) 3 ml IH [id number] [facility] Last Admin: 02/14/18 13:14 Dose: 3 ml Alprazolam (Xanax) 0.5 mg PO BID [facility] PRN Reason: Protocol Last Admin: 02/14/18 16:53 Dose: 0.5 mg Alprazolam (Xanax) 1 mg PO HS [facility] PRN Reason: Protocol Last Admin: 02/13/18 22:09 Dose: 1 mg Amoxicillin/Clavulanate Potassium (Augmentin 500 Mg-125 Mg Tab) 1 tab PO BID [facility] PRN Reason: Protocol Last Admin: 02/14/18 16:53 Dose: 1 tab Chlorpromazine (Thorazine) 25 mg IM BID PRN; Protocol PRN Reason: severe agitation Last Admin: 02/13/18 12:21 Dose: 25 mg Chlorpromazine (Thorazine) 100 mg PO BID [facility] PRN Reason: Protocol Last Admin: 02/14/18 16:53 Dose: 100 mg Chlorthalidone (Hygroton) 25 mg PO DAILY [facility] Last Admin: 02/14/18 11:47 Dose: 25 mg Clozapine (Clozaril) 25 mg PO DAILY [facility] PRN Reason: Protocol Last Admin: 02/14/18 09:06 Dose: 25 mg Clozapine (Clozaril) 50 mg PO HS [facility] PRN Reason: Protocol Divalproex Sodium (Depakote Dr (*Bid*)) 250 mg PO BID [facility] PRN Reason: Protocol Last Admin: 02/14/18 16:53 Dose: 250 mg Divalproex Sodium (Depakote Er(Once Daily)) 250 mg PO HS [facility] Last Admin: 02/13/18 22:08 Dose: 250 mg Docusate Sodium (Colace) 100 mg PO BID [facility] Last Admin: 02/14/18 16:53 Dose: 100 mg Enoxaparin Sodium (Lovenox) 30 mg SC DAILY [facility] PRN Reason: Protocol Last Admin: 02/14/18 09:06 Dose: 30 mg Ferrous Sulfate (Feosol) 324 mg PO DAILY [facility] Last Admin: 02/14/18 09:06 Dose: 324 mg Folic Acid (Folic Acid) 1 mg PO DAILY [facility] Last Admin: 02/14/18 09:07 Dose: 1 mg Insulin Human Regular (Humulin R Med) 0 units SC [facility] PRN Reason: Protocol Last Admin: 02/14/18 16:54 Dose: Not Given Lactobacillus Acidophilus (Bacid Acidophilus) 1 cap PO DAILY [facility] Last Admin: 02/14/18 09:06 Dose: 1 cap Lorazepam (Ativan) 1 mg IM Q8H PRN; Protocol PRN Reason: Anxiety Last Admin: 02/13/18 12:21 Dose: 1 mg Lorazepam (Ativan) 1 mg PO Q6H PRN; Protocol PRN Reason: Anxiety Last Admin: 02/11/18 12:46 Dose: 1 mg Magnesium Hydroxide (Milk Of Magnesia) 30 ml PO DAILY PRN PRN Reason: Constipation Oxycodone HCl (Oxycodone Immediate Release Tab) 5 mg PO BID [facility] Last Admin: 02/14/18 16:53 Dose: 5 mg Promethazine HCl/Dextromethorphan (Phenergan Dm Syrup) 5 ml PO Q6H PRN PRN Reason: Cough Zaleplon (Sonata) 10 mg PO HS [facility] Last Admin: 02/13/18 22:08 Dose: 10 mg - Labs Labs: 02/14/18 07:30 02/14/18 07:30 - Constitutional Appears: No Acute Distress - Head Exam Head Exam: ATRAUMATIC, NORMAL INSPECTION, NORMOCEPHALIC - Eye Exam Eye Exam: EOMI, Normal appearance, PERRL. absent: Scleral icterus Pupil Exam: NORMAL ACCOMODATION - ENT Exam ENT Exam: Mucous Membranes Moist - Neck Exam Additional comments: supple. No JVD - Respiratory Exam Respiratory Exam: Clear to Ausculation Bilateral, Rales (bilateral lung bases) - Cardiovascular Exam Cardiovascular Exam: Tachycardia (after moving and sitting up for examination), +S1, +S2 - GI/Abdominal Exam GI & Abdominal Exam: Soft - Extremities Exam Extremities Exam: Normal Capillary Refill. absent: Calf Tenderness, Pedal Edema , Tenderness - Neurological Exam Neurological Exam: Alert, Awake - Psychiatric Exam Psychiatric exam: Normal Mood - Skin Skin Exam: Dry, Warm Assessment and Plan - Assessment and Plan (Free Text) Plan: Kenyatta Bejarano, 62F, admitted to psych on 02/02 for severe depression and anxiety. On 1:1 for confusion and safety. Medical consult noted coughs starting on 02/08, on Duoneb 3q6, augmentin (day 5), phenergan DM 5q6 PRN. CXR (02/01) showed no active disease. EKG (02/01) QTc 482. She is being treated for diabetic insipidus. Pt is receiving about 4L of Oral H2O / day. Pt is a poor historian. Per nursing assistance (1:1), pt has increased dry cough today, non-productive. Pt urinates "a lot", she is incontinent. Physical exam is significant for dry cough with gurgling sounds, and crackles at lung bases. CXR is negative for active disease. VS stable. POx 94 on room air, improve upon repositioning. Aspiration likely secondary to confusion Cough likely secondary to aspiration superimposed upper respiratory viral infection vs allergic reaction Unlikely fluid overload due to diabetes insipidous - CXR: negative - BNP pending - Procalc pending - Continue Augmentin, Duoneb 3Q6. No need to add anaerobic coverage, no signs of aspiration pneumonia for now. VS stable - Change Mucinex 600 BID [facility] until cough improves. Per Nephro, hold promethazine for possible interactions with psych meds. - HOB 45 degrees/Aspiration precaution - Swallow eval and tx - salt restriction diet to 2g for hypernatremia, per Nephro. - Communicated with Dr Adams - Communicate with Dr Jaffe s/r/d/w Dr. Jaffe
--- NOTE | 2018-02-14 18:44 | RAD ---
HISTORY: Crackly on exam. Questionable fluid overload COMPARISON: 02/11/2018. FINDINGS: LUNGS: The lungs are clear. PLEURA: No significant pleural effusion identified, no pneumothorax apparent. CARDIOVASCULAR: Normal. OSSEOUS STRUCTURES: No significant abnormalities. VISUALIZED UPPER ABDOMEN: Normal. OTHER FINDINGS: None. IMPRESSION: No active pulmonary disease.
[2018-02-14] MEDS ORDERED: Promethazine DM 6.25 mg-15 mg/5 ml Syrup PO SCH (19:00)
[2018-02-14 19:06] LABS: PH,URINE 6.5 (4.7-8.0); URINE BILIRUBIN NEGATIVE (NEGATIVE); URINE BLOOD MODERATE (NEGATIVE); URINE GLUCOSE (UA) NEGATIVE (NEGATIVE); URINE LEUKOCYTE ESTERASE TRACE Leu/uL (NEGATIVE); URINE PROTEIN NEGATIVE mg/dL (<30 mg/dL); URINE UROBILINOGEN 0.2 E.U./dL (<1 E.U./dL)
[2018-02-14 19:07] LABS: URINE APPEARANCE TURBID (CLEAR); URINE COLOR YELLOW (YELLOW)
[2018-02-14 19:10] LABS: URINE BACTERIA FEW (NEG); URINE WBC 0 - 2 /hpf (0-6)
[2018-02-14] MEDS: Divalproex 250 mg ER (ONCE DAILY formulation) PO SCH (21:11)
[2018-02-15] MEDS: Albuterol-Ipratrop 3 mg / 0.5 (3 ml) UD IH SCH ×4 (01:41→20:47)
[2018-02-15 07:42] LABS: BLOOD UREA NITROGEN 18 mg/dL (7-21); CALCIUM 10.2 mg/dL (8.4-10.5); GFR AFRICAN-AMERICAN > 60; GFR NON-AFRICAN AMERICAN > 60
[2018-02-15] MEDS: Insulin Reg-MEDIUM-Coverage SC SCH ×4 (08:56→21:37)
--- NOTE | 2018-02-15 11:08 | PN ---
DATE: SUBJECTIVE: We had a call from the house doctor yesterday due to coughing and congestion. I did a blood test. I did a chest x-ray and there is a swallow evaluation ordered. She is resting comfortably in bed this morning. She slept fairly well last night. I do not have the swallow report back yet. The chest x-ray came back as normal. No acute disease. She sounds like she is having an upper respiratory infection and she is already on Augmentin. I will add a cough medicine to her list of medications. She has DuoNeb ordered already and she has the cough medicine already ordered, which is great. I will continue with that treatment. She has to be sitting up when she is eating and we will see if she does need to have thickened added to the fluid. LABORATORY DATA: She had 4.7 white count, 13.2 hemoglobin and platelets 215 yesterday. Sodium 145, potassium 4, BUN is 18, creatinine is 0.9. Yesterday's sugar was 112. Urine is trace, it was large in the beginning, now it is trace, so the urinary tract infection is much improved. I will order lab for tomorrow. I want to get her out of bed to chair; make sure when you feed her, she is sitting up. I will see what the swallow evaluation says. At this time, this morning, she does look improved. We will continue aggressive treatment and care by Psychiatry and I think she is having upper respiratory infection with the mucus and the coughing. Tien Jaffe DO
[2018-02-15] MEDS: Amoxicillin-Clav 500-125 mg Tab PO SCH ×2 (11:16→16:58)
[2018-02-15] MEDS: Lactobacillus Acidophilus 500 MU Cap PO SCH (11:17)
[2018-02-15] MEDS: oxyCODONE 5 mg Immediate Release Tab PO SCH ×2 (11:17→16:57)
[2018-02-15] MEDS: Divalproex 250 mg DR (BID formulation) PO SCH ×2 (11:17→16:57)
[2018-02-15] MEDS: Enoxaparin 30 mg Syringe SC SCH (11:18)
[2018-02-15] MEDS: guaiFENesin 600 mg ER Tab PO SCH ×2 (11:18→16:58)
--- NOTE | 2018-02-15 14:08 | PCM.PYCHPN ---
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 patient is too psychotic to understand Medical Problems: New UTI better, pt had been at the assisted living facility at [facility] since her ortho surgery 11/2017; anemia pt's PCP is Guido Feliz. Diagnostic Results: 02/02/18 06:50 02/02/18 06:50 Lab Results 02/03/18 11:51: POC Glucose (mg/dL) 97 02/03/18 09:13: POC Glucose (mg/dL) 160 H 02/02/18 23:20: Urine Osmolality 157 L, Ur Random Sodium 12 02/02/18 21:07: POC Glucose (mg/dL) 110 02/02/18 17:01: POC Glucose (mg/dL) 104 02/02/18 09:35: Phosphorus 3.4, Magnesium 2.8 H 02/02/18 09:35: 25-OH Vitamin D Total 25.4 L 02/02/18 09:35: Total Protein (PEP) 6.8, Albumin (PEP) 3.7 L, Dfuyg-6-Svepzawjw 0.4 H, Mlcql-6-Vieqalney 0.8, Psxw-2-Xgmxjesl 0.4, Kzmx-3-Hmhbbcvw 0.3, Gamma Globulins 1.1, Abnorm Protein Band 1 TEST NOT PERFORMED, Abnorm Protein Band 2 TEST NOT PERFORMED, Abnorm Protein Band 3 TEST NOT PERFORMED, RANDOLPH & SPEP Interp See note, Serum Immunofixation Pending, Tot [place]/Lambda Ratio Pending, [place] Light Chain Anal Pending, Lambda Light Chain Anal Pending 02/02/18 09:35: PTH Intact Whole Molec 153 H 02/02/18 06:50: RPR Nonreactive 02/02/18 06:50: TSH 3rd Generation 1.05 02/02/18 06:50: Sodium 148, Potassium 3.7, Chloride 113 H, Carbon Dioxide 23, Anion Gap 17, BUN 20, Creatinine 1.0, Est GFR ( Amer) > 60, Est GFR (Non- Af Amer) 56, Random Glucose 115 H, Fasting Glucose 115 H, Calcium 10.7 H, Total Bilirubin 0.8, AST 29, ALT 32, Alkaline Phosphatase 219 H, Total Protein 7.4, Albumin 4.1, Globulin 3.3, Albumin/Globulin Ratio 1.2, Triglycerides 112, Cholesterol 174, LDL Cholesterol Direct 95, HDL Cholesterol 52 02/02/18 06:50: WBC 12.8 H, RBC 4.43, Hgb 12.6, Hct 40.4, MCV 91.2, MCH 28.4, MCHC 31.2, RDW 15.2 H, Plt Count 272, MPV 10.6, Gran % 79.0 H, Lymph % (Auto) 9.8 L, [place] % (Auto) 9.9 H, Eos % (Auto) 0.9 L, Baso % (Auto) 0.4, Gran # 10.09 H, Lymph # (Auto) 1.3, [place] # (Auto) 1.3 H, Eos # (Auto) 0.1, Baso # (Auto) 0.05 02/02/18 06:50: Devine 1.0 02/01/18 16:01: Urine Opiates Screen Negative, Urine Methadone Screen Negative, Ur Barbiturates Screen Negative, Ur Phencyclidine Scrn Negative, Ur Amphetamines Screen Negative, U Benzodiazepines Scrn Negative, U Oth Cocaine Metabols Negative, U Cannabinoids Screen Negative 02/01/18 16:01: Urine Color Yellow, Urine Appearance Sl cloudy, Urine pH 6.0, Ur Specific [place] 1.010, Urine Protein Negative, Urine Glucose (UA) Negative, Urine Ketones Negative, Urine Blood Small H, Urine Nitrate Negative, Urine Bilirubin Negative, Urine Urobilinogen 0.2, Ur Leukocyte Esterase Large H, Urine RBC 0 - 2, Urine WBC 10 - 15, Urine Bacteria Trace 02/01/18 13:47: Devine 1.5 H 02/01/18 13:47: Alcohol, Quantitative < 10 02/01/18 13:47: Salicylates < 1 L, Acetaminophen < 10.0 L 02/01/18 13:47: Sodium 144, Potassium 3.5 L, Chloride 109 H, Carbon Dioxide 25, Anion Gap 13, BUN 19, Creatinine 1.2, Est GFR ( Amer) 55, Est GFR (Non- Af Amer) 46, Random Glucose 112 H, Calcium 10.8 H, Total Bilirubin 0.5, AST 31, ALT 38, Alkaline Phosphatase 189 H, Total Protein 7.0, Albumin 3.9, Globulin 3.1 , Albumin/Globulin Ratio 1.3 02/01/18 13:47: WBC 15.0 H, RBC 4.39, Hgb 12.8, Hct 39.7, MCV 90.4, MCH 29.2, MCHC 32.2, RDW 15.0 H, Plt Count 242, MPV 10.0, Gran % 81.7 H, Lymph % (Auto) 8.3 L, [place] % (Auto) 9.5 H, Eos % (Auto) 0.3 L, Baso % (Auto) 0.2, Gran # 12.24 H, Lymph # (Auto) 1.2, Linn # (Auto) 1.4 H, Eos # (Auto) 0.0, Baso # (Auto) 0.03 Vital Signs Temp Pulse Resp BP Pulse Ox 02/03/18 07:34 97.6 F 87 20 130/78 02/02/18 16:00 106 H 121/71 02/02/18 07:33 98.0 F 57 L 20 146/84 02/01/18 22:00 20 02/01/18 15:23 104 H 18 151/87 H 98 02/01/18 13:14 98.3 F 98 H 18 138/78 99 Laboratory Results - last 24 hr 02/02/18 02/03/18 02/04/18 09:35 21:17 07:15 WBC 8.5 D RBC 4.33 Hgb 12.6 Hct 39.8 MCV 91.9 MCH 29.1 MCHC 31.7 RDW 15.3 H Plt Count 278 MPV 10.2 Sodium Potassium Chloride Carbon Dioxide Anion Gap BUN Creatinine Est GFR ( Amer) Est GFR (Non-Af Amer) POC Glucose (mg/dL) 154 H Random Glucose Calcium Total Bilirubin AST ALT Alkaline Phosphatase Total Protein Albumin Globulin Albumin/Globulin Ratio Serum Immunofixation Not detected Tot [place]/Lambda Ratio 2.28 [place] Light Chain Anal 239 Lambda Light Chain Anal 105 02/04/18 02/04/18 02/04/18 07:15 07:37 12:08 WBC RBC Hgb Hct MCV MCH MCHC RDW Plt Count MPV Sodium 151 H Potassium 4.3 Chloride 114 H Carbon Dioxide 27 Anion Gap 14 BUN 16 Creatinine 0.8 Est GFR ( Amer) > 60 Est GFR (Non-Af Amer) > 60 POC Glucose (mg/dL) 102 95 Random Glucose 112 H Calcium 10.6 H Total Bilirubin 0.4 AST 24 ALT 30 Alkaline Phosphatase 194 H Total Protein 7.0 Albumin 3.7 Globulin 3.3 Albumin/Globulin Ratio 1.1 Serum Immunofixation Tot [place]/Lambda Ratio [place] Light Chain Anal Lambda Light Chain Anal 02/04/18 16:11 WBC RBC Hgb Hct MCV MCH MCHC RDW Plt Count MPV Sodium Potassium Chloride Carbon Dioxide Anion Gap BUN Creatinine Est GFR ( Amer) Est GFR (Non-Af Amer) POC Glucose (mg/dL) 88 Random Glucose Calcium Total Bilirubin AST ALT Alkaline Phosphatase Total Protein Albumin Globulin Albumin/Globulin Ratio Serum Immunofixation Tot [place]/Lambda Ratio [place] Light Chain Anal Lambda Light Chain Anal Temp Pulse Resp BP Pulse Ox 97.9 F 80 20 134/78 98 02/04/18 07:00 02/04/18 07:00 02/04/18 07:00 02/04/18 07:00 02/01/18 15:23 Abnormal Lab Results 02/05/18 02/05/18 02/06/18 16:26 21:13 07:00 WBC 6.5 D RBC 4.29 Hgb 12.5 Hct 39.3 MCV 91.6 MCH 29.1 MCHC 31.8 RDW 15.1 H Plt Count 260 MPV 10.6 Sodium Potassium Chloride Carbon Dioxide Anion Gap BUN Creatinine Est GFR ( Amer) Est GFR (Non-Af Amer) POC Glucose (mg/dL) 98 99 Random Glucose Calcium Total Bilirubin AST ALT Alkaline Phosphatase Total Protein Albumin Globulin Albumin/Globulin Ratio 02/06/18 02/06/18 02/06/18 07:00 07:40 11:06 WBC RBC Hgb Hct MCV MCH MCHC RDW Plt Count MPV Sodium 145 Potassium 4.1 Chloride 109 H Carbon Dioxide 30 Anion Gap 10 BUN 16 Creatinine 0.8 Est GFR ( Amer) > 60 Est GFR (Non-Af Amer) > 60 POC Glucose (mg/dL) 85 93 Random Glucose 100 Calcium 10.0 Total Bilirubin 0.4 AST 32 ALT 45 Alkaline Phosphatase 203 H Total Protein 6.6 Albumin 3.5 Globulin 3.1 Albumin/Globulin Ratio 1.1 Temp Pulse Resp BP Pulse Ox 97.3 F L 94 H 20 145/84 98 02/06/18 07:53 02/06/18 07:53 02/06/18 07:53 02/06/18 07:53 02/01/18 15:23 Laboratory Results - last 24 hr 02/06/18 02/07/18 02/07/18 22:02 06:15 06:15 WBC 5.7 RBC 4.32 Hgb 12.5 Hct 39.8 MCV 92.1 MCH 28.9 MCHC 31.4 RDW 15.2 H Plt Count 237 MPV 10.4 Sodium 144 Potassium 4.6 Chloride 110 H Carbon Dioxide 27 Anion Gap 12 BUN 15 Creatinine 0.8 Est GFR ( Amer) > 60 Est GFR (Non-Af Amer) > 60 POC Glucose (mg/dL) 89 Random Glucose 95 Calcium 9.8 Total Bilirubin 0.4 AST 30 ALT 53 Alkaline Phosphatase 195 H Total Protein 6.7 Albumin 3.6 Globulin 3.1 Albumin/Globulin Ratio 1.2 02/07/18 12:59 WBC RBC Hgb Hct MCV MCH MCHC RDW Plt Count MPV Sodium Potassium Chloride Carbon Dioxide Anion Gap BUN Creatinine Est GFR ( Amer) Est GFR (Non-Af Amer) POC Glucose (mg/dL) 158 H Random Glucose Calcium Total Bilirubin AST ALT Alkaline Phosphatase Total Protein Albumin Globulin Albumin/Globulin Ratio Temp Pulse Resp BP Pulse Ox 98.3 F 86 20 77/47 L 98 02/07/18 07:37 02/07/18 07:37 02/07/18 07:37 02/07/18 07:37 02/01/18 15:23 Laboratory Results - last 24 hr 02/09/18 02/09/18 02/10/18 16:30 20:56 08:26 WBC RBC Hgb Hct MCV MCH MCHC RDW Plt Count MPV Gran % Lymph % (Auto) [place] % (Auto) Eos % (Auto) Baso % (Auto) Gran # Lymph # (Auto) [place] # (Auto) Eos # (Auto) Baso # (Auto) POC Glucose (mg/dL) 120 H 132 H 81 02/10/18 02/10/18 11:01 12:32 WBC 7.0 D RBC 4.25 Hgb 12.4 Hct 39.5 MCV 92.9 MCH 29.2 MCHC 31.4 RDW 15.1 H Plt Count 241 MPV 10.6 Gran % 71.6 H Lymph % (Auto) 18.7 L [place] % (Auto) 8.3 H Eos % (Auto) 1.1 L Baso % (Auto) 0.3 Gran # 4.99 Lymph # (Auto) 1.3 Linn # (Auto) 0.6 Eos # (Auto) 0.1 Baso # (Auto) 0.02 POC Glucose (mg/dL) 110 no signs of arganulocytosis PT was registered to [facility] CXR WNL 02/14/18 Laboratory Results - last 72 hr 02/12/18 02/12/18 02/13/18 15:39 21:04 07:38 WBC RBC Hgb Hct MCV MCH MCHC RDW Plt Count MPV Sodium Potassium Chloride Carbon Dioxide Anion Gap BUN Creatinine Est GFR ( Amer) Est GFR (Non-Af Amer) POC Glucose (mg/dL) 120 H 108 238 H Random Glucose Hemoglobin A1c Calcium Total Bilirubin AST ALT Alkaline Phosphatase NT-Pro-B Natriuret Pep Total Protein Albumin Globulin Albumin/Globulin Ratio Procalcitonin Urine Color Urine Appearance Urine pH Ur Specific [place] Urine Protein Urine Glucose (UA) Urine Ketones Urine Blood Urine Nitrate Urine Bilirubin Urine Urobilinogen Ur Leukocyte Esterase Urine RBC Urine WBC Ur Epithelial Cells Urine Bacteria Urine Osmolality 02/13/18 02/13/18 02/13/18 11:37 16:01 21:21 WBC RBC Hgb Hct MCV MCH MCHC RDW Plt Count MPV Sodium Potassium Chloride Carbon Dioxide Anion Gap BUN Creatinine Est GFR ( Amer) Est GFR (Non-Af Amer) POC Glucose (mg/dL) 110 118 H 113 H Random Glucose Hemoglobin A1c Calcium Total Bilirubin AST ALT Alkaline Phosphatase NT-Pro-B Natriuret Pep Total Protein Albumin Globulin Albumin/Globulin Ratio Procalcitonin Urine Color Urine Appearance Urine pH Ur Specific [place] Urine Protein Urine Glucose (UA) Urine Ketones Urine Blood Urine Nitrate Urine Bilirubin Urine Urobilinogen Ur Leukocyte Esterase Urine RBC Urine WBC Ur Epithelial Cells Urine Bacteria Urine Osmolality 02/14/18 02/14/18 02/14/18 07:30 07:30 07:30 WBC 4.7 RBC 4.55 Hgb 13.2 Hct 41.8 MCV 91.9 MCH 29.0 MCHC 31.6 RDW 14.6 H Plt Count 215 MPV 10.5 Sodium 152 H Potassium 4.6 Chloride 113 H Carbon Dioxide 30 Anion Gap 15 BUN 14 Creatinine 0.8 Est GFR ( Amer) > 60 Est GFR (Non-Af Amer) > 60 POC Glucose (mg/dL) Random Glucose 96 Hemoglobin A1c 5.4 Calcium 10.4 Total Bilirubin 0.2 AST 24 ALT 35 Alkaline Phosphatase 175 H NT-Pro-B Natriuret Pep Total Protein 7.0 Albumin 3.5 Globulin 3.4 Albumin/Globulin Ratio 1.0 L Procalcitonin Urine Color Urine Appearance Urine pH Ur Specific [place] Urine Protein Urine Glucose (UA) Urine Ketones Urine Blood Urine Nitrate Urine Bilirubin Urine Urobilinogen Ur Leukocyte Esterase Urine RBC Urine WBC Ur Epithelial Cells Urine Bacteria Urine Osmolality 02/14/18 02/14/18 02/14/18 07:30 07:31 11:28 WBC RBC Hgb Hct MCV MCH MCHC RDW Plt Count MPV Sodium Potassium Chloride Carbon Dioxide Anion Gap BUN Creatinine Est GFR ( Amer) Est GFR (Non-Af Amer) POC Glucose (mg/dL) 97 138 H Random Glucose Hemoglobin A1c Calcium Total Bilirubin AST ALT Alkaline Phosphatase NT-Pro-B Natriuret Pep 44.3 Total Protein Albumin Globulin Albumin/Globulin Ratio Procalcitonin Urine Color Urine Appearance Urine pH Ur Specific [place] Urine Protein Urine Glucose (UA) Urine Ketones Urine Blood Urine Nitrate Urine Bilirubin Urine Urobilinogen Ur Leukocyte Esterase Urine RBC Urine WBC Ur Epithelial Cells Urine Bacteria Urine Osmolality 02/14/18 02/14/18 02/14/18 16:31 18:52 18:52 WBC RBC Hgb Hct MCV MCH MCHC RDW Plt Count MPV Sodium Potassium Chloride Carbon Dioxide Anion Gap BUN Creatinine Est GFR ( Amer) Est GFR (Non-Af Amer) POC Glucose (mg/dL) 163 H Random Glucose Hemoglobin A1c Calcium Total Bilirubin AST ALT Alkaline Phosphatase NT-Pro-B Natriuret Pep Total Protein Albumin Globulin Albumin/Globulin Ratio Procalcitonin Urine Color Yellow Urine Appearance Turbid Urine pH 6.5 Ur Specific [place] <= 1.005 Urine Protein Negative Urine Glucose (UA) Negative Urine Ketones Negative Urine Blood Moderate H Urine Nitrate Negative Urine Bilirubin Negative Urine Urobilinogen 0.2 Ur Leukocyte Esterase Trace H Urine RBC 1 - 3 Urine WBC 0 - 2 Ur Epithelial Cells 4 - 5 Urine Bacteria Few Urine Osmolality 217 L 02/14/18 02/15/18 02/15/18 21:04 05:50 05:50 WBC RBC Hgb Hct MCV MCH MCHC RDW Plt Count MPV Sodium 145 Potassium 4.0 Chloride 105 Carbon Dioxide 28 Anion Gap 16 BUN 18 Creatinine 0.9 Est GFR ( Amer) > 60 Est GFR (Non-Af Amer) > 60 POC Glucose (mg/dL) 110 Random Glucose 108 Hemoglobin A1c Calcium 10.2 Total Bilirubin AST ALT Alkaline Phosphatase NT-Pro-B Natriuret Pep Total Protein Albumin Globulin Albumin/Globulin Ratio Procalcitonin < 0.05 L Urine Color Urine Appearance Urine pH Ur Specific [place] Urine Protein Urine Glucose (UA) Urine Ketones Urine Blood Urine Nitrate Urine Bilirubin Urine Urobilinogen Ur Leukocyte Esterase Urine RBC Urine WBC Ur Epithelial Cells Urine Bacteria Urine Osmolality 02/15/18 02/15/18 07:22 11:30 WBC RBC Hgb Hct MCV MCH MCHC RDW Plt Count MPV Sodium Potassium Chloride Carbon Dioxide Anion Gap BUN Creatinine Est GFR ( Amer) Est GFR (Non-Af Amer) POC Glucose (mg/dL) 112 H 78 Random Glucose Hemoglobin A1c Calcium Total Bilirubin AST ALT Alkaline Phosphatase NT-Pro-B Natriuret Pep Total Protein Albumin Globulin Albumin/Globulin Ratio Procalcitonin Urine Color Urine Appearance Urine pH Ur Specific [place] Urine Protein Urine Glucose (UA) Urine Ketones Urine Blood Urine Nitrate Urine Bilirubin Urine Urobilinogen Ur Leukocyte Esterase Urine RBC Urine WBC Ur Epithelial Cells Urine Bacteria Urine Osmolality DSM 5 Symptoms Update: shortly patient is 62-year- female, reported h/o Bipolar disorder, not known h/ o suicidal attempts, not known h/o psychiatric admissions, pt was transferred from the [facility] [facility] at [facility] in [place] where she was getting subacute care for orthopedic surgery, pt was transferred from the facility for evaluation of disorganized, psychotic, agitated and aggressive behavior. As per report from the [place] facility, pt was sexually preoccupied/constantly disrobing or walking around naked, pt was also responding to internal stimuli, pt also broke drawers in facility, was pouring water over other residents, previously pt was in assisted living, pt was able to sign consent for treatment. as per report from the nursing staff patient did not have a good nights sleep, all together patient slept not more than 2 hours, was agitated, needed to have injection of Ativan. pt still disorganized in thoughts and behavior. pt was coughing, XR WNL, Prolactitonin low, no signs of sepsis. During the morning hours patient was sleepy. pt is on titrating dose of Clozaril. last week collaterals from pt's psychiatrist Dr. Gamez, pt was on zyprexa,but developed severe EPS, which could be contributed to pt's fall and subsequent hip fracture. pt had h/o manic episodes with sexual provocative behavior, pt wears "clown-like" make up h/o attempt to seduce others in her vicinity. Devine pt tolerated relatively well, but Ged Teacher , recommended to use other meds than lithium, kidney function is affected and Devine is not recommended as of now. pt has no side effects of meds but meds not effective. Impression: Schizoaffective disorder delirium better Medication Change: Yes (clozaril titration, thorazin decreased) Medical Record Reviewed: Yes Consults ordered or reviewed: medical consult appreciated, nephrology consult appreciated. discussed case with Dr. Adams 02/04/18, sodium was climbing up, we'll of course patient drinking plenty of water discussed with Dr. Jaffe 02/04/18, he shouldn't should continue antibiotics for another 5 days, last dose February 09 discussed with 02/14/18 pt was started on Thiazide. current labs wnl Mental Status Examination - Cognitive Function Orientation: Person Memory: Impaired Attention: Poor Concentration: Poor Association: Loose Fund of Knowledge: Poor - Mood Mood: Depressed (depressed and wants to . Sometimes she thinks about harming herself.), Anxious - Affect Affect: Flat, Other (emotional) - Formal Thought Process Formal Thought Process: Delusions ("committed a sin to the lord, I am so sad"), Paranoia, Loosening of associations - Suicidal Ideation Suicidal Ideation: No - Homicidal Ideation Homicidal Ideation: No Goal/Treatment Plan - Goal/Treatment Plan Need for Continued Stay: Remain at risks for inpatient hospitalization, Severe depression anxiety, Discharge may exacerbated symptoms, Failed transitioning, Severe functional impairment Progress Toward Problem(s) and Goals/Treatment Plan: milieu/structure/supportive therapy seroquel discontinued Clozaril on titration schedule Pt was registered on [facility] on weekly monitoring blood work for next 02/17/18 thorazine 100mg po bid for psychosis, will be tapered down, pt was not improving on it depakote 250mg po bid and hs for mood stabilization depakote level tomorrow am Xanax1 mg 3 times a day scheduled geodon as needed sonata as needed nephrology and medical team involved SW consultation for discharge plan and social issues psychiatrist was contacted, awaiting for call back Family involvement Follow up on labs Will monitor closely Pt was educated about risk/benefits and alternatives of medications, coping strategies (safety plan, suicide prevention), relapse prevention, importance of follow up with psychiatrist and therapist, stay away from drugs/alcohol/smoking patient still required to be on one-to-one Estimated Date of D/C: 02/18/18
--- NOTE | 2018-02-15 15:20 | CP.PCM.PN ---
Subjective - Date & Time of Evaluation Date of Evaluation: 02/15/18 Time of Evaluation: 15:20 - Subjective Subjective: Nephrology Consultation: Assessment: Stable Mild Hypernatremia and mild Hypercalcemia likely due to [place] as it can cause nephrogenic DI and hyperparathyroidism possible UTI elevated BP Bipolar disorder Plan No acute need for renal replacement therapy at this time. BP control acceptable for now pt to drink plenty of fluids/water. Discussed with the nursing staff to allow patient to have unrestricted access to water continue with water 250 mL every 4 hours scheduled dose hold vit D supplements for now Will consider calcimimetic as Sensipar if calcium stays elevated. Ca better for now Dose meds/antibiotics for normal GFR. Further work up/management as per primary team Re: medications from psychiatry perspective, consider alternative medications to lithium considering current complications likely due to [place] (as mentioned above). If need to use, consider it with amiloride and with close monitoring of [place]ar[place] levels. continue with chlorthalidone 25 mg/day for management of hypernatremia. nursing staff again was reinforced to allow pt unrestricted access to water consider WRAP CHECKER eval for cough with oral intake Thanks for allowing me to participate in care of your patient. Will follow further PRN basis. Please call if any Qs. d/w team Dr Jaquan Adams Office: [phone] Chief Complaint; unable reason for consult: electrolyte abnormalities source of Info: as per EMR HPI: Pt is a 62 F with hx of bipolar disorder, on lithium presented with complaints of behavioral changes and hallucinations. renal consult for electrolytes abnormality and UTI pt unable to provide much reliable hx ROS: Unable to reliably obtain from the patient. reports of cough with food/ water Physical Examination: General Appearance: Comfortable, in no acute respiratory distress, co-operative . Vitals reviewed and noted as below Head; Atraumatic, normocephalic ENT: no ulcers no thrush. Tongue is midline/dry. Oropharynx: no rash or ulcers. EYES: Pupils are equal, round and reactive to light accommodation. Eye muscles and extraocular movement intact. Sclera is anicteric. Neck; supple no lymphadenopathy, no thyromegaly or bruit Lungs: Normal respiratory rate/effort. Breath sounds bilateral equal and clear Heart: Normal rate. s1s2 normal. No rub or gallop. Extremities: no edema. No varicose veins Neurological: Patient is alert, awake and disoriented. No focal deficit. Strength bilateral appropriate and equal Skin: Warm and dry. Normal turgor. No rash. Palpitation: Normal elasticity for age Abdomen: Abdomen is soft. Bowel sounds +. There is no abdominal tenderness, no guarding/rigidity no organomegaly Psych: lack insight and hallucinations + MSK: no joint tenderness or swelling. Digits and nails normal, no deformity : kidney or bladder not palpable Labs/imaging reviewed. Past medical history, past surgical history, family history, social history, allergy reviewed and noted as below Family hx: no hx of CKD. Rest non-contributory Workup PTH 153 vitamin D level 25 urine osmolality 157 Objective - Vital Signs/Intake and Output Vital Signs (last 24 hours): Temp Pulse Resp BP Pulse Ox 97.7 F 93 H 18 129/73 94 L 02/15/18 06:45 02/15/18 06:45 02/15/18 06:45 02/15/18 06:45 02/14/18 17:52 - Medications Medications: Current Medications Acetaminophen (Tylenol 325mg Tab) 650 mg PO Q6H PRN PRN Reason: Pain, moderate (4-7) Al Hydrox/Mg Hydrox/Simethicone (Maalox Plus 30 Ml) 30 ml PO DAILY PRN PRN Reason: Indigestion / Heartburn Albuterol/Ipratropium (Duoneb 3 Mg/0.5 Mg (3 Ml) Ud) 3 ml IH [id number] [facility] Last Admin: 02/15/18 11:29 Dose: Not Given Alprazolam (Xanax) 0.5 mg PO BID GREGORY PRN Reason: Protocol Last Admin: 02/15/18 11:17 Dose: 0.5 mg Alprazolam (Xanax) 1 mg PO HS GREGORY PRN Reason: Protocol Last Admin: 02/14/18 21:12 Dose: 1 mg Amoxicillin/Clavulanate Potassium (Augmentin 500 Mg-125 Mg Tab) 1 tab PO BID GREGORY PRN Reason: Protocol Last Admin: 02/15/18 11:16 Dose: 1 tab Chlorpromazine (Thorazine) 25 mg IM BID PRN; Protocol PRN Reason: severe agitation Last Admin: 02/13/18 12:21 Dose: 25 mg Chlorpromazine (Thorazine) 100 mg PO BID [facility] PRN Reason: Protocol Last Admin: 02/15/18 11:16 Dose: 100 mg Chlorthalidone (Hygroton) 25 mg PO DAILY [facility] Last Admin: 02/15/18 11:17 Dose: 25 mg Clozapine (Clozaril) 50 mg PO HS [facility] PRN Reason: Protocol Last Admin: 02/14/18 21:13 Dose: 50 mg Clozapine (Clozaril) 50 mg PO DAILY [facility] PRN Reason: Protocol Divalproex Sodium (Depakote Dr (*Bid*)) 250 mg PO BID [facility] PRN Reason: Protocol Last Admin: 02/15/18 11:17 Dose: 250 mg Divalproex Sodium (Depakote Er(Once Daily)) 250 mg PO HS [facility] Last Admin: 02/14/18 21:11 Dose: 250 mg Docusate Sodium (Colace) 100 mg PO BID [facility] Last Admin: 02/15/18 11:16 Dose: 100 mg Enoxaparin Sodium (Lovenox) 30 mg SC DAILY [facility] PRN Reason: Protocol Last Admin: 02/15/18 11:18 Dose: 30 mg Ferrous Sulfate (Feosol) 324 mg PO DAILY [facility] Last Admin: 02/15/18 11:16 Dose: 324 mg Folic Acid (Folic Acid) 1 mg PO DAILY [facility] Last Admin: 02/15/18 11:17 Dose: 1 mg Guaifenesin (Mucinex La) 600 mg PO BID [facility] Last Admin: 02/15/18 11:18 Dose: 600 mg Insulin Human Regular (Humulin R Med) 0 units SC [facility] PRN Reason: Protocol Last Admin: 02/15/18 12:00 Dose: Not Given Lactobacillus Acidophilus (Bacid Acidophilus) 1 cap PO DAILY [facility] Last Admin: 02/15/18 11:17 Dose: 1 cap Lorazepam (Ativan) 1 mg IM Q8H PRN; Protocol PRN Reason: Anxiety Last Admin: 02/15/18 02:18 Dose: 1 mg Lorazepam (Ativan) 1 mg PO Q6H PRN; Protocol PRN Reason: Anxiety Last Admin: 02/14/18 23:27 Dose: 1 mg Magnesium Hydroxide (Milk Of Magnesia) 30 ml PO DAILY PRN PRN Reason: Constipation Oxycodone HCl (Oxycodone Immediate Release Tab) 5 mg PO BID [facility] Last Admin: 04/10/18 11:17 Dose: 5 mg Zaleplon (Sonata) 10 mg PO HS [facility] Last Admin: 02/14/18 21:12 Dose: 10 mg - Labs Labs: 02/14/18 07:30 02/15/18 05:50
[2018-02-15] MEDS: Divalproex 250 mg ER (ONCE DAILY formulation) PO SCH (21:24)
[2018-02-16 07:31] LABS: MEAN CELL VOLUME 90.4 fl (80.0-105.0); MEAN CORPUSCULAR HGB CONC 32.1 g/dl (31.0-37.0); MEAN PLATELET VOLUME 10.7 fl (7.0-11.0); RBC 4.48 10^6/uL (3.5-6.1); RED CELL DISTRIBUTION WIDTH 14.5 % (11.5-14.5); WHITE BLOOD COUNT 6.1 10^3/ul (4.5-11.0)
[2018-02-16 08:11] LABS: ALBUMIN 3.5 g/dL (3.0-4.8); ALT/SGPT 37 U/L (7-56); AST/SGOT 27 U/L (14-36); BLOOD UREA NITROGEN 18 mg/dL (7-21); CALCIUM 10.1 mg/dL (8.4-10.5); GFR AFRICAN-AMERICAN > 60; GFR NON-AFRICAN AMERICAN > 60
[2018-02-16] MEDS: Amoxicillin-Clav 500-125 mg Tab PO SCH ×2 (08:35→17:22)
[2018-02-16] MEDS: Albuterol-Ipratrop 3 mg / 0.5 (3 ml) UD IH SCH ×3 (08:35→21:24)
[2018-02-16] MEDS: oxyCODONE 5 mg Immediate Release Tab PO SCH ×2 (08:35→17:22)
[2018-02-16] MEDS: Divalproex 250 mg DR (BID formulation) PO SCH (08:36)
[2018-02-16] MEDS: Lactobacillus Acidophilus 500 MU Cap PO SCH (08:36)
[2018-02-16] MEDS: guaiFENesin 600 mg ER Tab PO SCH ×2 (08:36→17:21)
[2018-02-16] MEDS: Enoxaparin 30 mg Syringe SC SCH (08:37)
[2018-02-16] MEDS: Insulin Reg-MEDIUM-Coverage SC SCH ×4 (08:38→21:59)
--- NOTE | 2018-02-16 13:55 | PN ---
DATE: 02/16/2018 SUBJECTIVE: I saw her this morning resting comfortably in bed. There is no more cough, no congestion. She is alert. She is talking. She is asking for soda. She is in good spirits. She slept fairly well. She is on one-to-one. MEDICATIONS: She is on Ativan, Augmentin, Bacid, Clozaril, Colace, Depakote, DuoNeb, Feosol, folic acid, insulin Lovenox, Maalox, milk of magnesia, Mucinex, oxycodone, Sonata, Thorazine, Tylenol and Xanax. PHYSICAL EXAMINATION VITAL SIGNS: She has a 98.1 temperature, 88 pulse, 114/72 blood pressure, 20 respiratory rate, 94% O2 saturation on room air. HEENT: Head is atraumatic, normocephalic. GENERAL: She is alert. She has looked at me. No cough, no sore throat. HEART: Regular rate. LUNGS: Decreased breath sounds, but clear. No wheezes, rhonchi or rales. ABDOMEN: Soft. EXTREMITIES: No edema. LABORATORY DATA: She has a 6.1 white count, 13 hemoglobin, 40.5 hematocrit with a 224 platelets. She has a sodium 145, potassium 4, BUN , creatinine 0.9, last blood sugar was 85, calcium is 10.2. I definitely think she is improving. Urine is much better with the antibiotics. She is being seen by Renal with normal kidney function. We will continue with aggressive treatment and care. I think she did well and we will follow. Her upper respiratory infection is improving. Tien Jaffe, DO : 02/16/2018 7:57:40 MTDD
--- NOTE | 2018-02-16 15:17 | CP.PCM.PN ---
Subjective - Date & Time of Evaluation Date of Evaluation: 02/16/18 Time of Evaluation: 15:16 - Subjective Subjective: Nephrology Consultation: Assessment: Stable Mild Hypernatremia and mild Hypercalcemia: IMPROVED ( likely due to Ririe as it can cause nephrogenic DI and hyperparathyroidism) possible UTI elevated BP Bipolar disorder Plan No acute need for renal replacement therapy at this time. BP control acceptable for now pt to drink plenty of fluids/water. Discussed with the nursing staff to allow patient to have unrestricted access to water continue with water 250 mL every 4 hours scheduled dose hold vit D supplements for now Will consider calcimimetic as Sensipar if calcium stays elevated. Ca better for now Dose meds/antibiotics for normal GFR. Further work up/management as per primary team Re: medications from psychiatry perspective, consider alternative medications to lithium considering current complications likely due to Ririe (as mentioned above). If need to use, consider it with amiloride and with close monitoring of Ririe levels. continue with chlorthalidone 25 mg/day for management of hypernatremia. nursing staff again was reinforced to allow pt unrestricted access to water consider [employer] eval for cough with oral intake Thanks for allowing me to participate in care of your patient. Will sign off and follow further PRN basis. Please call if any Qs. Dr Jaquan Adams Office: [phone] Chief Complaint; unable reason for consult: electrolyte abnormalities source of Info: as per EMR HPI: Pt is a 62 F with hx of bipolar disorder, on lithium presented with complaints of behavioral changes and hallucinations. renal consult for electrolytes abnormality and UTI pt unable to provide much reliable hx ROS: Unable to reliably obtain from the patient. reports of cough with food/ water Physical Examination: General Appearance: Comfortable, in no acute respiratory distress, co-operative . Vitals reviewed and noted as below Head; Atraumatic, normocephalic ENT: no ulcers no thrush. Tongue is midline/dry. Oropharynx: no rash or ulcers. EYES: Pupils are equal, round and reactive to light accommodation. Eye muscles and extraocular movement intact. Sclera is anicteric. Neck; supple no lymphadenopathy, no thyromegaly or bruit Lungs: Normal respiratory rate/effort. Breath sounds bilateral equal and clear Heart: Normal rate. s1s2 normal. No rub or gallop. Extremities: no edema. No varicose veins Neurological: Patient is alert, awake and disoriented. No focal deficit. Strength bilateral appropriate and equal Skin: Warm and dry. Normal turgor. No rash. Palpitation: Normal elasticity for age Abdomen: Abdomen is soft. Bowel sounds +. There is no abdominal tenderness, no guarding/rigidity no organomegaly Psych: lack insight and hallucinations + MSK: no joint tenderness or swelling. Digits and nails normal, no deformity : kidney or bladder not palpable Labs/imaging reviewed. Past medical history, past surgical history, family history, social history, allergy reviewed and noted as below Family hx: no hx of CKD. Rest non-contributory Workup PTH 153 vitamin D level 25 urine osmolality 157 Objective - Vital Signs/Intake and Output Vital Signs (last 24 hours): Temp Pulse Resp BP Pulse Ox 98.1 F 88 20 114/72 94 L 02/16/18 07:34 02/16/18 07:34 02/16/18 07:34 02/16/18 07:34 02/14/18 17:52 - Medications Medications: Current Medications Acetaminophen (Tylenol 325mg Tab) 650 mg PO Q6H PRN PRN Reason: Pain, moderate (4-7) Al Hydrox/Mg Hydrox/Simethicone (Maalox Plus 30 Ml) 30 ml PO DAILY PRN PRN Reason: Indigestion / Heartburn Albuterol/Ipratropium (Duoneb 3 Mg/0.5 Mg (3 Ml) Ud) 3 ml IH [id number] [facility] Last Admin: 02/16/18 14:21 Dose: 3 ml Alprazolam (Xanax) 0.5 mg PO BID [facility] PRN Reason: Protocol Last Admin: 02/16/18 08:36 Dose: 0.5 mg Alprazolam (Xanax) 1 mg PO HS [facility] PRN Reason: Protocol Last Admin: 02/15/18 21:23 Dose: 1 mg Amoxicillin/Clavulanate Potassium (Augmentin 500 Mg-125 Mg Tab) 1 tab PO BID [facility] PRN Reason: Protocol Last Admin: 02/16/18 08:35 Dose: 1 tab Chlorpromazine (Thorazine) 25 mg IM BID PRN; Protocol PRN Reason: severe agitation Last Admin: 02/13/18 12:21 Dose: 25 mg Chlorpromazine (Thorazine) 100 mg PO BID [facility] PRN Reason: Protocol Last Admin: 02/16/18 08:37 Dose: 100 mg Chlorthalidone (Hygroton) 25 mg PO DAILY [facility] Last Admin: 02/16/18 08:35 Dose: 25 mg Clozapine (Clozaril) 50 mg PO DAILY [facility] PRN Reason: Protocol Last Admin: 02/16/18 08:35 Dose: 50 mg Clozapine (Clozaril) 75 mg PO HS [facility] PRN Reason: Protocol Divalproex Sodium (Depakote Dr (*Bid*)) 250 mg PO BID [facility] PRN Reason: Protocol Last Admin: 02/16/18 08:36 Dose: 250 mg Divalproex Sodium (Depakote Er(Once Daily)) 250 mg PO HS [facility] Last Admin: 02/15/18 21:24 Dose: 250 mg Docusate Sodium (Colace) 100 mg PO BID [facility] Last Admin: 02/16/18 08:37 Dose: 100 mg Enoxaparin Sodium (Lovenox) 30 mg SC DAILY [facility] PRN Reason: Protocol Last Admin: 02/16/18 08:37 Dose: 30 mg Ferrous Sulfate (Feosol) 324 mg PO DAILY [facility] Last Admin: 02/16/18 08:36 Dose: 324 mg Folic Acid (Folic Acid) 1 mg PO DAILY [facility] Last Admin: 02/16/18 08:36 Dose: 1 mg Guaifenesin (Mucinex La) 600 mg PO BID [facility] Last Admin: 02/16/18 08:36 Dose: 600 mg Insulin Human Regular (Humulin R Med) 0 units SC [facility] PRN Reason: Protocol Last Admin: 02/16/18 13:57 Dose: Not Given Lactobacillus Acidophilus (Bacid Acidophilus) 1 cap PO DAILY [facility] Last Admin: 02/16/18 08:36 Dose: 1 cap Lorazepam (Ativan) 1 mg IM Q8H PRN; Protocol PRN Reason: Anxiety Last Admin: 02/15/18 02:18 Dose: 1 mg Lorazepam (Ativan) 1 mg PO Q6H PRN; Protocol PRN Reason: Anxiety Last Admin: 02/14/18 23:27 Dose: 1 mg Magnesium Hydroxide (Milk Of Magnesia) 30 ml PO DAILY PRN PRN Reason: Constipation Oxycodone HCl (Oxycodone Immediate Release Tab) 5 mg PO BID [facility] Last Admin: 02/16/18 08:35 Dose: 5 mg Zaleplon (Sonata) 10 mg PO HS [facility] Last Admin: 02/15/18 21:23 Dose: 10 mg - Labs Labs: 02/16/18 07:00 02/16/18 07:00
--- NOTE | 2018-02-16 15:47 | PCM.PYCHPN ---
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 patient is too psychotic to understand Medical Problems: New UTI better, pt had been at the assisted living facility at [facility], [place] since her ortho surgery 11/2017; anemia pt's PCP is Guido Feliz. Diagnostic Results: 02/02/18 06:50 02/02/18 06:50 Lab Results 02/03/18 11:51: POC Glucose (mg/dL) 97 02/03/18 09:13: POC Glucose (mg/dL) 160 H 02/02/18 23:20: Urine Osmolality 157 L, Ur Random Sodium 12 02/02/18 21:07: POC Glucose (mg/dL) 110 02/02/18 17:01: POC Glucose (mg/dL) 104 02/02/18 09:35: Phosphorus 3.4, Magnesium 2.8 H 02/02/18 09:35: 25-OH Vitamin D Total 25.4 L 02/02/18 09:35: Total Protein (PEP) 6.8, Albumin (PEP) 3.7 L, Imlwm-9-Dagypsrjv 0.4 H, Tudpf-5-Fphhtpqpw 0.8, Fsuq-9-Tglwfpqo 0.4, Kvij-7-Ulouhfcw 0.3, Gamma Globulins 1.1, Abnorm Protein Band 1 TEST NOT PERFORMED, Abnorm Protein Band 2 TEST NOT PERFORMED, Abnorm Protein Band 3 TEST NOT PERFORMED, RANDOLPH & SPEP Interp See note, Serum Immunofixation Pending, Tot Sebree/Lambda Ratio Pending, [place]bree Light Chain Anal Pending, Lambda Light Chain Anal Pending 02/02/18 09:35: PTH Intact Whole Molec 153 H 02/02/18 06:50: RPR Nonreactive 02/02/18 06:50: TSH 3rd Generation 1.05 02/02/18 06:50: Sodium 148, Potassium 3.7, Chloride 113 H, Carbon Dioxide 23, Anion Gap 17, BUN 20, Creatinine 1.0, Est GFR ( Amer) > 60, Est GFR (Non- Af Amer) 56, Random Glucose 115 H, Fasting Glucose 115 H, Calcium 10.7 H, Total Bilirubin 0.8, AST 29, ALT 32, Alkaline Phosphatase 219 H, Total Protein 7.4, Albumin 4.1, Globulin 3.3, Albumin/Globulin Ratio 1.2, Triglycerides 112, Cholesterol 174, LDL Cholesterol Direct 95, HDL Cholesterol 52 02/02/18 06:50: WBC 12.8 H, RBC 4.43, Hgb 12.6, Hct 40.4, MCV 91.2, MCH 28.4, MCHC 31.2, RDW 15.2 H, Plt Count 272, MPV 10.6, Gran % 79.0 H, Lymph % (Auto) 9.8 L, [place] % (Auto) 9.9 H, Eos % (Auto) 0.9 L, Baso % (Auto) 0.4, Gran # 10.09 H, Lymph # (Auto) 1.3, [place] # (Auto) 1.3 H, Eos # (Auto) 0.1, Baso # (Auto) 0.05 02/02/18 06:50: [place] 1.0 02/01/18 16:01: Urine Opiates Screen Negative, Urine Methadone Screen Negative, Ur Barbiturates Screen Negative, Ur Phencyclidine Scrn Negative, Ur Amphetamines Screen Negative, U Benzodiazepines Scrn Negative, U Oth Cocaine Metabols Negative, U Cannabinoids Screen Negative 02/01/18 16:01: Urine Color Yellow, Urine Appearance Sl cloudy, Urine pH 6.0, Ur Specific [place] 1.010, Urine Protein Negative, Urine Glucose (UA) Negative, Urine Ketones Negative, Urine Blood Small H, Urine Nitrate Negative, Urine Bilirubin Negative, Urine Urobilinogen 0.2, Ur Leukocyte Esterase Large H, Urine RBC 0 - 2, Urine WBC 10 - 15, Urine Bacteria Trace 02/01/18 13:47: [place] 1.5 H 02/01/18 13:47: Alcohol, Quantitative < 10 02/01/18 13:47: Salicylates < 1 L, Acetaminophen < 10.0 L 02/01/18 13:47: Sodium 144, Potassium 3.5 L, Chloride 109 H, Carbon Dioxide 25, Anion Gap 13, BUN 19, Creatinine 1.2, Est GFR ( Amer) 55, Est GFR (Non- Af Amer) 46, Random Glucose 112 H, Calcium 10.8 H, Total Bilirubin 0.5, AST 31, ALT 38, Alkaline Phosphatase 189 H, Total Protein 7.0, Albumin 3.9, Globulin 3.1 , Albumin/Globulin Ratio 1.3 02/01/18 13:47: WBC 15.0 H, RBC 4.39, Hgb 12.8, Hct 39.7, MCV 90.4, MCH 29.2, MCHC 32.2, RDW 15.0 H, Plt Count 242, MPV 10.0, Gran % 81.7 H, Lymph % (Auto) 8.3 L, [place] % (Auto) 9.5 H, Eos % (Auto) 0.3 L, Baso % (Auto) 0.2, Gran # 12.24 H, Lymph # (Auto) 1.2, [place] # (Auto) 1.4 H, Eos # (Auto) 0.0, Baso # (Auto) 0.03 Vital Signs Temp Pulse Resp BP Pulse Ox 02/03/18 07:34 97.6 F 87 20 130/78 02/02/18 16:00 106 H 121/71 02/02/18 07:33 98.0 F 57 L 20 146/84 02/01/18 22:00 20 02/01/18 15:23 104 H 18 151/87 H 98 02/01/18 13:14 98.3 F 98 H 18 138/78 99 Laboratory Results - last 24 hr 02/02/18 02/03/18 02/04/18 09:35 21:17 07:15 WBC 8.5 D RBC 4.33 Hgb 12.6 Hct 39.8 MCV 91.9 MCH 29.1 MCHC 31.7 RDW 15.3 H Plt Count 278 MPV 10.2 Sodium Potassium Chloride Carbon Dioxide Anion Gap BUN Creatinine Est GFR ( Amer) Est GFR (Non-Af Amer) POC Glucose (mg/dL) 154 H Random Glucose Calcium Total Bilirubin AST ALT Alkaline Phosphatase Total Protein Albumin Globulin Albumin/Globulin Ratio Serum Immunofixation Not detected Tot Sebree/Lambda Ratio 2.28 [place] Light Chain Anal 239 Lambda Light Chain Anal 105 02/04/18 02/04/18 02/04/18 07:15 07:37 12:08 WBC RBC Hgb Hct MCV MCH MCHC RDW Plt Count MPV Sodium 151 H Potassium 4.3 Chloride 114 H Carbon Dioxide 27 Anion Gap 14 BUN 16 Creatinine 0.8 Est GFR ( Amer) > 60 Est GFR (Non-Af Amer) > 60 POC Glucose (mg/dL) 102 95 Random Glucose 112 H Calcium 10.6 H Total Bilirubin 0.4 AST 24 ALT 30 Alkaline Phosphatase 194 H Total Protein 7.0 Albumin 3.7 Globulin 3.3 Albumin/Globulin Ratio 1.1 Serum Immunofixation Tot [place]/Lambda Ratio [place]ree Light Chain Anal Lambda Light Chain Anal 02/04/18 16:11 WBC RBC Hgb Hct MCV MCH MCHC RDW Plt Count MPV Sodium Potassium Chloride Carbon Dioxide Anion Gap BUN Creatinine Est GFR ( Amer) Est GFR (Non-Af Amer) POC Glucose (mg/dL) 88 Random Glucose Calcium Total Bilirubin AST ALT Alkaline Phosphatase Total Protein Albumin Globulin Albumin/Globulin Ratio Serum Immunofixation Tot [place]/Lambda Ratio [place] Light Chain Anal Lambda Light Chain Anal Temp Pulse Resp BP Pulse Ox 97.9 F 80 20 134/78 98 02/04/18 07:00 02/04/18 07:00 02/04/18 07:00 02/04/18 07:00 02/01/18 15:23 Abnormal Lab Results 02/05/18 02/05/18 02/06/18 16:26 21:13 07:00 WBC 6.5 D RBC 4.29 Hgb 12.5 Hct 39.3 MCV 91.6 MCH 29.1 MCHC 31.8 RDW 15.1 H Plt Count 260 MPV 10.6 Sodium Potassium Chloride Carbon Dioxide Anion Gap BUN Creatinine Est GFR ( Amer) Est GFR (Non-Af Amer) POC Glucose (mg/dL) 98 99 Random Glucose Calcium Total Bilirubin AST ALT Alkaline Phosphatase Total Protein Albumin Globulin Albumin/Globulin Ratio 02/06/18 02/06/18 02/06/18 07:00 07:40 11:06 WBC RBC Hgb Hct MCV MCH MCHC RDW Plt Count MPV Sodium 145 Potassium 4.1 Chloride 109 H Carbon Dioxide 30 Anion Gap 10 BUN 16 Creatinine 0.8 Est GFR ( Amer) > 60 Est GFR (Non-Af Amer) > 60 POC Glucose (mg/dL) 85 93 Random Glucose 100 Calcium 10.0 Total Bilirubin 0.4 AST 32 ALT 45 Alkaline Phosphatase 203 H Total Protein 6.6 Albumin 3.5 Globulin 3.1 Albumin/Globulin Ratio 1.1 Temp Pulse Resp BP Pulse Ox 97.3 F L 94 H 20 145/84 98 02/06/18 07:53 02/06/18 07:53 02/06/18 07:53 02/06/18 07:53 02/01/18 15:23 Laboratory Results - last 24 hr 02/06/18 02/07/18 02/07/18 22:02 06:15 06:15 WBC 5.7 RBC 4.32 Hgb 12.5 Hct 39.8 MCV 92.1 MCH 28.9 MCHC 31.4 RDW 15.2 H Plt Count 237 MPV 10.4 Sodium 144 Potassium 4.6 Chloride 110 H Carbon Dioxide 27 Anion Gap 12 BUN 15 Creatinine 0.8 Est GFR ( Amer) > 60 Est GFR (Non-Af Amer) > 60 POC Glucose (mg/dL) 89 Random Glucose 95 Calcium 9.8 Total Bilirubin 0.4 AST 30 ALT 53 Alkaline Phosphatase 195 H Total Protein 6.7 Albumin 3.6 Globulin 3.1 Albumin/Globulin Ratio 1.2 02/07/18 12:59 WBC RBC Hgb Hct MCV MCH MCHC RDW Plt Count MPV Sodium Potassium Chloride Carbon Dioxide Anion Gap BUN Creatinine Est GFR ( Amer) Est GFR (Non-Af Amer) POC Glucose (mg/dL) 158 H Random Glucose Calcium Total Bilirubin AST ALT Alkaline Phosphatase Total Protein Albumin Globulin Albumin/Globulin Ratio Temp Pulse Resp BP Pulse Ox 98.3 F 86 20 77/47 L 98 02/07/18 07:37 02/07/18 07:37 02/07/18 07:37 02/07/18 07:37 02/01/18 15:23 Laboratory Results - last 24 hr 02/09/18 02/09/18 02/10/18 16:30 20:56 08:26 WBC RBC Hgb Hct MCV MCH MCHC RDW Plt Count MPV Gran % Lymph % (Auto) [place] % (Auto) Eos % (Auto) Baso % (Auto) Gran # Lymph # (Auto) [place] # (Auto) Eos # (Auto) Baso # (Auto) POC Glucose (mg/dL) 120 H 132 H 81 02/10/18 02/10/18 11:01 12:32 WBC 7.0 D RBC 4.25 Hgb 12.4 Hct 39.5 MCV 92.9 MCH 29.2 MCHC 31.4 RDW 15.1 H Plt Count 241 MPV 10.6 Gran % 71.6 H Lymph % (Auto) 18.7 L [place] % (Auto) 8.3 H Eos % (Auto) 1.1 L Baso % (Auto) 0.3 Gran # 4.99 Lymph # (Auto) 1.3 [place] # (Auto) 0.6 Eos # (Auto) 0.1 Baso # (Auto) 0.02 POC Glucose (mg/dL) 110 no signs of arganulocytosis PT was registered to [facility] CXR WNL 02/14/18 Laboratory Results - last 72 hr 02/12/18 02/12/18 02/13/18 15:39 21:04 07:38 WBC RBC Hgb Hct MCV MCH MCHC RDW Plt Count MPV Sodium Potassium Chloride Carbon Dioxide Anion Gap BUN Creatinine Est GFR ( Amer) Est GFR (Non-Af Amer) POC Glucose (mg/dL) 120 H 108 238 H Random Glucose Hemoglobin A1c Calcium Total Bilirubin AST ALT Alkaline Phosphatase NT-Pro-B Natriuret Pep Total Protein Albumin Globulin Albumin/Globulin Ratio Procalcitonin Urine Color Urine Appearance Urine pH Ur Specific [place] Urine Protein Urine Glucose (UA) Urine Ketones Urine Blood Urine Nitrate Urine Bilirubin Urine Urobilinogen Ur Leukocyte Esterase Urine RBC Urine WBC Ur Epithelial Cells Urine Bacteria Urine Osmolality 02/13/18 02/13/18 02/13/18 11:37 16:01 21:21 WBC RBC Hgb Hct MCV MCH MCHC RDW Plt Count MPV Sodium Potassium Chloride Carbon Dioxide Anion Gap BUN Creatinine Est GFR ( Amer) Est GFR (Non-Af Amer) POC Glucose (mg/dL) 110 118 H 113 H Random Glucose Hemoglobin A1c Calcium Total Bilirubin AST ALT Alkaline Phosphatase NT-Pro-B Natriuret Pep Total Protein Albumin Globulin Albumin/Globulin Ratio Procalcitonin Urine Color Urine Appearance Urine pH Ur Specific [place] Urine Protein Urine Glucose (UA) Urine Ketones Urine Blood Urine Nitrate Urine Bilirubin Urine Urobilinogen Ur Leukocyte Esterase Urine RBC Urine WBC Ur Epithelial Cells Urine Bacteria Urine Osmolality 02/14/18 02/14/18 02/14/18 07:30 07:30 07:30 WBC 4.7 RBC 4.55 Hgb 13.2 Hct 41.8 MCV 91.9 MCH 29.0 MCHC 31.6 RDW 14.6 H Plt Count 215 MPV 10.5 Sodium 152 H Potassium 4.6 Chloride 113 H Carbon Dioxide 30 Anion Gap 15 BUN 14 Creatinine 0.8 Est GFR ( Amer) > 60 Est GFR (Non-Af Amer) > 60 POC Glucose (mg/dL) Random Glucose 96 Hemoglobin A1c 5.4 Calcium 10.4 Total Bilirubin 0.2 AST 24 ALT 35 Alkaline Phosphatase 175 H NT-Pro-B Natriuret Pep Total Protein 7.0 Albumin 3.5 Globulin 3.4 Albumin/Globulin Ratio 1.0 L Procalcitonin Urine Color Urine Appearance Urine pH Ur Specific [place] Urine Protein Urine Glucose (UA) Urine Ketones Urine Blood Urine Nitrate Urine Bilirubin Urine Urobilinogen Ur Leukocyte Esterase Urine RBC Urine WBC Ur Epithelial Cells Urine Bacteria Urine Osmolality 02/14/18 02/14/18 02/14/18 07:30 07:31 11:28 WBC RBC Hgb Hct MCV MCH MCHC RDW Plt Count MPV Sodium Potassium Chloride Carbon Dioxide Anion Gap BUN Creatinine Est GFR ( Amer) Est GFR (Non-Af Amer) POC Glucose (mg/dL) 97 138 H Random Glucose Hemoglobin A1c Calcium Total Bilirubin AST ALT Alkaline Phosphatase NT-Pro-B Natriuret Pep 44.3 Total Protein Albumin Globulin Albumin/Globulin Ratio Procalcitonin Urine Color Urine Appearance Urine pH Ur Specific [place] Urine Protein Urine Glucose (UA) Urine Ketones Urine Blood Urine Nitrate Urine Bilirubin Urine Urobilinogen Ur Leukocyte Esterase Urine RBC Urine WBC Ur Epithelial Cells Urine Bacteria Urine Osmolality 02/14/18 02/14/18 02/14/18 16:31 18:52 18:52 WBC RBC Hgb Hct MCV MCH MCHC RDW Plt Count MPV Sodium Potassium Chloride Carbon Dioxide Anion Gap BUN Creatinine Est GFR ( Amer) Est GFR (Non-Af Amer) POC Glucose (mg/dL) 163 H Random Glucose Hemoglobin A1c Calcium Total Bilirubin AST ALT Alkaline Phosphatase NT-Pro-B Natriuret Pep Total Protein Albumin Globulin Albumin/Globulin Ratio Procalcitonin Urine Color Yellow Urine Appearance Turbid Urine pH 6.5 Ur Specific [place] <= 1.005 Urine Protein Negative Urine Glucose (UA) Negative Urine Ketones Negative Urine Blood Moderate H Urine Nitrate Negative Urine Bilirubin Negative Urine Urobilinogen 0.2 Ur Leukocyte Esterase Trace H Urine RBC 1 - 3 Urine WBC 0 - 2 Ur Epithelial Cells 4 - 5 Urine Bacteria Few Urine Osmolality 217 L 02/14/18 02/15/18 02/15/18 21:04 05:50 05:50 WBC RBC Hgb Hct MCV MCH MCHC RDW Plt Count MPV Sodium 145 Potassium 4.0 Chloride 105 Carbon Dioxide 28 Anion Gap 16 BUN 18 Creatinine 0.9 Est GFR ( Amer) > 60 Est GFR (Non-Af Amer) > 60 POC Glucose (mg/dL) 110 Random Glucose 108 Hemoglobin A1c Calcium 10.2 Total Bilirubin AST ALT Alkaline Phosphatase NT-Pro-B Natriuret Pep Total Protein Albumin Globulin Albumin/Globulin Ratio Procalcitonin < 0.05 L Urine Color Urine Appearance Urine pH Ur Specific [place] Urine Protein Urine Glucose (UA) Urine Ketones Urine Blood Urine Nitrate Urine Bilirubin Urine Urobilinogen Ur Leukocyte Esterase Urine RBC Urine WBC Ur Epithelial Cells Urine Bacteria Urine Osmolality 02/15/18 02/15/18 07:22 11:30 WBC RBC Hgb Hct MCV MCH MCHC RDW Plt Count MPV Sodium Potassium Chloride Carbon Dioxide Anion Gap BUN Creatinine Est GFR ( Amer) Est GFR (Non-Af Amer) POC Glucose (mg/dL) 112 H 78 Random Glucose Hemoglobin A1c Calcium Total Bilirubin AST ALT Alkaline Phosphatase NT-Pro-B Natriuret Pep Total Protein Albumin Globulin Albumin/Globulin Ratio Procalcitonin Urine Color Urine Appearance Urine pH Ur Specific [place] Urine Protein Urine Glucose (UA) Urine Ketones Urine Blood Urine Nitrate Urine Bilirubin Urine Urobilinogen Ur Leukocyte Esterase Urine RBC Urine WBC Ur Epithelial Cells Urine Bacteria Urine Osmolality DSM 5 Symptoms Update: shortly patient is 62-year- female, reported h/o Bipolar disorder, not known h/ o suicidal attempts, not known h/o psychiatric admissions, pt was transferred from the [facility] at [facility] in [place] where she was getting subacute care for orthopedic surgery, pt was transferred from the facility for evaluation of disorganized, psychotic, agitated and aggressive behavior. As per report from the [facility] facility, pt was sexually preoccupied/constantly disrobing or walking around naked, pt was also responding to internal stimuli, pt also broke drawers in facility, was pouring water over other residents, previously pt was in assisted living, pt was able to sign consent for treatment. as per report from the nursing staff patient started to have some positive changes. pt was interested to have a book to read, but was not able to stay focused. today was the first day when somewhat meaningful conversation possible. 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 At the same time patient is psychotic, patient was cursing and screaming at 1:1 sitter , patient was making threats, patient was screaming and using profanities as well as racial remarks. As per staff report, patient has good appetite, sleep was fair. pt has no side effects of meds, AIMS 0, no EPS. Impression: Schizoaffective disorder delirium better Medication Change: Yes (clozaril titration, thorazin decreased) Medical Record Reviewed: Yes Mental Status Examination - Cognitive Function Orientation: Person Memory: Impaired Attention: Poor Concentration: Poor Association: Loose Fund of Knowledge: Poor - Mood Mood: Depressed (depressed and wants to . Sometimes she thinks about harming herself.), Anxious - Affect Affect: Flat, Other (emotional) - Formal Thought Process Formal Thought Process: Delusions ("committed a sin to the lord, I am so sad"), Paranoia, Loosening of associations - Suicidal Ideation Suicidal Ideation: No - Homicidal Ideation Homicidal Ideation: No Goal/Treatment Plan - Goal/Treatment Plan Need for Continued Stay: Remain at risks for inpatient hospitalization, Severe depression anxiety, Discharge may exacerbated symptoms, Failed transitioning, Severe functional impairment Progress Toward Problem(s) and Goals/Treatment Plan: milieu/structure/supportive therapy seroquel discontinued Clozaril on titration schedule Pt was registered on [facility] on weekly monitoring blood work for next 02/17/18 thorazine 50mg po bid for psychosis, will be tapered down, pt was not improving on it depakote 250mg po bid and hs for mood stabilization depakote level tomorrow am Xanax1 mg 3 times a day scheduled geodon as needed sonata as needed nephrology and medical team involved SW consultation for discharge plan and social issues psychiatrist was contacted, awaiting for call back Family involvement Follow up on labs Will monitor closely Pt was educated about risk/benefits and alternatives of medications, coping strategies (safety plan, suicide prevention), relapse prevention, importance of follow up with psychiatrist and therapist, stay away from drugs/alcohol/smoking patient still required to be on one-to-one Estimated Date of D/C: 02/18/18
[2018-02-16] MEDS: Divalproex 250 mg ER (ONCE DAILY formulation) PO SCH (21:43)
[2018-02-17] MEDS: Albuterol-Ipratrop 3 mg / 0.5 (3 ml) UD IH SCH ×4 (01:12→21:30)
[2018-02-17 07:12] LABS: BASO # 0.02 K/mm3 (0.0-2.0); BASO % 0.3 % (0.0-3.0); EOS # 0.2 (0.0-0.7); EOS % 3.1 % (1.5-5.0); GRAN # 3.27 (1.4-6.5); GRAN % 54.2 % (50.0-68.0); HEMOGLOBIN 12.8 g/dL (12.0-16.0); LYMPH # 1.6 (1.2-3.4); LYMPH % 27.2 % (22.0-35.0); MEAN CELL VOLUME 88.8 fl (80.0-105.0); MEAN CORPUSCULAR HEMOGLOBIN 28.6 pg (25.0-35.0); MEAN CORPUSCULAR HGB CONC 32.2 g/dl (31.0-37.0); MONO # 0.9 (0.1-0.6); MONO % 15.2 % (1.0-6.0); RBC 4.48 10^6/uL (3.5-6.1); RED CELL DISTRIBUTION WIDTH 14.3 % (11.5-14.5)
[2018-02-17] MEDS: Insulin Reg-MEDIUM-Coverage SC SCH ×4 (08:11→21:00)
[2018-02-17] MEDS ORDERED: oxyCODONE 5 mg Immediate Release Tab PO PRN (08:38)
[2018-02-17] MEDS: Amoxicillin-Clav 500-125 mg Tab PO SCH ×2 (08:50→17:19)
[2018-02-17] MEDS: guaiFENesin 600 mg ER Tab PO SCH ×2 (08:52→17:20)
[2018-02-17] MEDS: Lactobacillus Acidophilus 500 MU Cap PO SCH (08:53)
[2018-02-17] MEDS: oxyCODONE 5 mg Immediate Release Tab PO SCH (08:54)
[2018-02-17] MEDS: Enoxaparin 30 mg Syringe SC SCH (08:55)
[2018-02-17] MEDS: Divalproex 250 mg ER (ONCE DAILY formulation) PO SCH ×2 (09:19→21:00)
--- NOTE | 2018-02-17 13:12 | PN ---
DATE: SUBJECTIVE: I saw her in the Judith chair in the Psychiatric floor. She is alert. She is talking. She is pleasant. She is not coughing. No chest pain, no shortness of breath. She is looking for amy linda. She is comfortable, in good spirits. MEDICATIONS: She is on Ativan, Augmentin, Bacid, Clozaril, Colace, Depakote, DuoNeb, Feosol, folic acid, [place], Lovenox, Maalox, milk of magnesia, Mucinex, oxycodone which I think make the oxycodone p.r.n., Sonata, Thorazine, Tylenol and Xanax. PHYSICAL EXAMINATION VITAL SIGNS: She has a 98 temperature, 88 pulse, 113/67 blood pressure, 20 respiratory rate. HEENT: Head is atraumatic, normocephalic. HEART: Regular rate. LUNGS: Clear to auscultation. ABDOMEN: Soft, obese. EXTREMITIES: No edema. LABORATORY DATA: She has a 6 white count, 12.8 hemoglobin, 39.8 hematocrit with 259 platelets. She has a sodium 142, potassium 3.8, last blood sugar was 107, BUN 18, creatinine 0.9, calcium is 10.1, AST is 27, ALT is 37, alkaline phosphatase 162. ASSESSMENT AND PLAN: Overall, I am happy with her. She is being seen by Renal and by Psychiatry. She had a few things going on when she is here. She has an upper respiratory infection, urinary tract infection, high cholesterol, high sodium, bipolar and I do think she is improving. Tien Jaffe DO
--- NOTE | 2018-02-17 15:13 | PCM.PYCHPN ---
Psychiatric Progress Note - Psychiatric Progress Note Patient seen today, length of contact: 30min Patient Chief Complaint: "I know, your are a Doctor, give me some juice" Problems Identified/Issues Discussed: this life underwriter attempted to discuss suicide/ homicide prevention, past psychiatric h/o, current psychiatric symptoms, medical problems, risk/benefits and alternatives of medications, medications compliance, coping strategies, substance abuse h/o, relapse prevention, importance of follow up with psychiatrist and therapist, discharge plan. patient is too psychotic to understand Medical Problems: New UTI better, pt had been at the assisted living facility at [facility] since her ortho surgery 11/2017; anemia pt's PCP is Guido Feliz. Diagnostic Results: 02/02/18 06:50 02/02/18 06:50 Lab Results 02/03/18 11:51: POC Glucose (mg/dL) 97 02/03/18 09:13: POC Glucose (mg/dL) 160 H 02/02/18 23:20: Urine Osmolality 157 L, Ur Random Sodium 12 02/02/18 21:07: POC Glucose (mg/dL) 110 02/02/18 17:01: POC Glucose (mg/dL) 104 02/02/18 09:35: Phosphorus 3.4, Magnesium 2.8 H 02/02/18 09:35: 25-OH Vitamin D Total 25.4 L 02/02/18 09:35: Total Protein (PEP) 6.8, Albumin (PEP) 3.7 L, Ehnei-3-Kpqiqwbzi 0.4 H, Pkpgm-6-Skdzgzskd 0.8, Bkgs-8-Brsamtln 0.4, Cuqk-9-Kbypzibr 0.3, Gamma Globulins 1.1, Abnorm Protein Band 1 TEST NOT PERFORMED, Abnorm Protein Band 2 TEST NOT PERFORMED, Abnorm Protein Band 3 TEST NOT PERFORMED, RANDOLPH & SPEP Interp See note, Serum Immunofixation Pending, Tot [place]/Lambda Ratio Pending, [place] Light Chain Anal Pending, Lambda Light Chain Anal Pending 02/02/18 09:35: PTH Intact Whole Molec 153 H 02/02/18 06:50: RPR Nonreactive 02/02/18 06:50: TSH 3rd Generation 1.05 02/02/18 06:50: Sodium 148, Potassium 3.7, Chloride 113 H, Carbon Dioxide 23, Anion Gap 17, BUN 20, Creatinine 1.0, Est GFR ( Amer) > 60, Est GFR (Non- Af Amer) 56, Random Glucose 115 H, Fasting Glucose 115 H, Calcium 10.7 H, Total Bilirubin 0.8, AST 29, ALT 32, Alkaline Phosphatase 219 H, Total Protein 7.4, Albumin 4.1, Globulin 3.3, Albumin/Globulin Ratio 1.2, Triglycerides 112, Cholesterol 174, LDL Cholesterol Direct 95, HDL Cholesterol 52 02/02/18 06:50: WBC 12.8 H, RBC 4.43, Hgb 12.6, Hct 40.4, MCV 91.2, MCH 28.4, MCHC 31.2, RDW 15.2 H, Plt Count 272, MPV 10.6, Gran % 79.0 H, Lymph % (Auto) 9.8 L, Clarke % (Auto) 9.9 H, Eos % (Auto) 0.9 L, Baso % (Auto) 0.4, Gran # 10.09 H, Lymph # (Auto) 1.3, Clarke # (Auto) 1.3 H, Eos # (Auto) 0.1, Baso # (Auto) 0.05 02/02/18 06:50: [place] 1.0 02/01/18 16:01: Urine Opiates Screen Negative, Urine Methadone Screen Negative, Ur Barbiturates Screen Negative, Ur Phencyclidine Scrn Negative, Ur Amphetamines Screen Negative, U Benzodiazepines Scrn Negative, U Oth Cocaine Metabols Negative, U Cannabinoids Screen Negative 02/01/18 16:01: Urine Color Yellow, Urine Appearance Sl cloudy, Urine pH 6.0, Ur Specific [place] 1.010, Urine Protein Negative, Urine Glucose (UA) Negative, Urine Ketones Negative, Urine Blood Small H, Urine Nitrate Negative, Urine Bilirubin Negative, Urine Urobilinogen 0.2, Ur Leukocyte Esterase Large H, Urine RBC 0 - 2, Urine WBC 10 - 15, Urine Bacteria Trace 02/01/18 13:47: [place] 1.5 H 02/01/18 13:47: Alcohol, Quantitative < 10 02/01/18 13:47: Salicylates < 1 L, Acetaminophen < 10.0 L 02/01/18 13:47: Sodium 144, Potassium 3.5 L, Chloride 109 H, Carbon Dioxide 25, Anion Gap 13, BUN 19, Creatinine 1.2, Est GFR ( Amer) 55, Est GFR (Non- Af Amer) 46, Random Glucose 112 H, Calcium 10.8 H, Total Bilirubin 0.5, AST 31, ALT 38, Alkaline Phosphatase 189 H, Total Protein 7.0, Albumin 3.9, Globulin 3.1 , Albumin/Globulin Ratio 1.3 02/01/18 13:47: WBC 15.0 H, RBC 4.39, Hgb 12.8, Hct 39.7, MCV 90.4, MCH 29.2, MCHC 32.2, RDW 15.0 H, Plt Count 242, MPV 10.0, Gran % 81.7 H, Lymph % (Auto) 8.3 L, Clarke % (Auto) 9.5 H, Eos % (Auto) 0.3 L, Baso % (Auto) 0.2, Gran # 12.24 H, Lymph # (Auto) 1.2, Clarke # (Auto) 1.4 H, Eos # (Auto) 0.0, Baso # (Auto) 0.03 Vital Signs Temp Pulse Resp BP Pulse Ox 02/03/18 07:34 97.6 F 87 20 130/78 02/02/18 16:00 106 H 121/71 02/02/18 07:33 98.0 F 57 L 20 146/84 02/01/18 22:00 20 02/01/18 15:23 104 H 18 151/87 H 98 02/01/18 13:14 98.3 F 98 H 18 138/78 99 Laboratory Results - last 24 hr 02/02/18 02/03/18 02/04/18 09:35 21:17 07:15 WBC 8.5 D RBC 4.33 Hgb 12.6 Hct 39.8 MCV 91.9 MCH 29.1 MCHC 31.7 RDW 15.3 H Plt Count 278 MPV 10.2 Sodium Potassium Chloride Carbon Dioxide Anion Gap BUN Creatinine Est GFR ( Amer) Est GFR (Non-Af Amer) POC Glucose (mg/dL) 154 H Random Glucose Calcium Total Bilirubin AST ALT Alkaline Phosphatase Total Protein Albumin Globulin Albumin/Globulin Ratio Serum Immunofixation Not detected Tot [place]/Lambda Ratio 2.28 [place] Light Chain Anal 239 Lambda Light Chain Anal 105 02/04/18 02/04/18 02/04/18 07:15 07:37 12:08 WBC RBC Hgb Hct MCV MCH MCHC RDW Plt Count MPV Sodium 151 H Potassium 4.3 Chloride 114 H Carbon Dioxide 27 Anion Gap 14 BUN 16 Creatinine 0.8 Est GFR ( Amer) > 60 Est GFR (Non-Af Amer) > 60 POC Glucose (mg/dL) 102 95 Random Glucose 112 H Calcium 10.6 H Total Bilirubin 0.4 AST 24 ALT 30 Alkaline Phosphatase 194 H Total Protein 7.0 Albumin 3.7 Globulin 3.3 Albumin/Globulin Ratio 1.1 Serum Immunofixation Tot [place]/Lambda Ratio [place] Light Chain Anal Lambda Light Chain Anal 02/04/18 16:11 WBC RBC Hgb Hct MCV MCH MCHC RDW Plt Count MPV Sodium Potassium Chloride Carbon Dioxide Anion Gap BUN Creatinine Est GFR ( Amer) Est GFR (Non-Af Amer) POC Glucose (mg/dL) 88 Random Glucose Calcium Total Bilirubin AST ALT Alkaline Phosphatase Total Protein Albumin Globulin Albumin/Globulin Ratio Serum Immunofixation Tot [place]/Lambda Ratio [place] Light Chain Anal Lambda Light Chain Anal Temp Pulse Resp BP Pulse Ox 97.9 F 80 20 134/78 98 02/04/18 07:00 02/04/18 07:00 02/04/18 07:00 02/04/18 07:00 02/01/18 15:23 Abnormal Lab Results 02/05/18 02/05/18 02/06/18 16:26 21:13 07:00 WBC 6.5 D RBC 4.29 Hgb 12.5 Hct 39.3 MCV 91.6 MCH 29.1 MCHC 31.8 RDW 15.1 H Plt Count 260 MPV 10.6 Sodium Potassium Chloride Carbon Dioxide Anion Gap BUN Creatinine Est GFR ( Amer) Est GFR (Non-Af Amer) POC Glucose (mg/dL) 98 99 Random Glucose Calcium Total Bilirubin AST ALT Alkaline Phosphatase Total Protein Albumin Globulin Albumin/Globulin Ratio 02/06/18 02/06/18 02/06/18 07:00 07:40 11:06 WBC RBC Hgb Hct MCV MCH MCHC RDW Plt Count MPV Sodium 145 Potassium 4.1 Chloride 109 H Carbon Dioxide 30 Anion Gap 10 BUN 16 Creatinine 0.8 Est GFR ( Amer) > 60 Est GFR (Non-Af Amer) > 60 POC Glucose (mg/dL) 85 93 Random Glucose 100 Calcium 10.0 Total Bilirubin 0.4 AST 32 ALT 45 Alkaline Phosphatase 203 H Total Protein 6.6 Albumin 3.5 Globulin 3.1 Albumin/Globulin Ratio 1.1 Temp Pulse Resp BP Pulse Ox 97.3 F L 94 H 20 145/84 98 02/06/18 07:53 02/06/18 07:53 02/06/18 07:53 02/06/18 07:53 02/01/18 15:23 Laboratory Results - last 24 hr 02/06/18 02/07/18 02/07/18 22:02 06:15 06:15 WBC 5.7 RBC 4.32 Hgb 12.5 Hct 39.8 MCV 92.1 MCH 28.9 MCHC 31.4 RDW 15.2 H Plt Count 237 MPV 10.4 Sodium 144 Potassium 4.6 Chloride 110 H Carbon Dioxide 27 Anion Gap 12 BUN 15 Creatinine 0.8 Est GFR ( Amer) > 60 Est GFR (Non-Af Amer) > 60 POC Glucose (mg/dL) 89 Random Glucose 95 Calcium 9.8 Total Bilirubin 0.4 AST 30 ALT 53 Alkaline Phosphatase 195 H Total Protein 6.7 Albumin 3.6 Globulin 3.1 Albumin/Globulin Ratio 1.2 02/07/18 12:59 WBC RBC Hgb Hct MCV MCH MCHC RDW Plt Count MPV Sodium Potassium Chloride Carbon Dioxide Anion Gap BUN Creatinine Est GFR ( Amer) Est GFR (Non-Af Amer) POC Glucose (mg/dL) 158 H Random Glucose Calcium Total Bilirubin AST ALT Alkaline Phosphatase Total Protein Albumin Globulin Albumin/Globulin Ratio Temp Pulse Resp BP Pulse Ox 98.3 F 86 20 77/47 L 98 02/07/18 07:37 02/07/18 07:37 02/07/18 07:37 02/07/18 07:37 02/01/18 15:23 Laboratory Results - last 24 hr 02/09/18 02/09/18 02/10/18 16:30 20:56 08:26 WBC RBC Hgb Hct MCV MCH MCHC RDW Plt Count MPV Gran % Lymph % (Auto) Clarke % (Auto) Eos % (Auto) Baso % (Auto) Gran # Lymph # (Auto) Clarke # (Auto) Eos # (Auto) Baso # (Auto) POC Glucose (mg/dL) 120 H 132 H 81 02/10/18 02/10/18 11:01 12:32 WBC 7.0 D RBC 4.25 Hgb 12.4 Hct 39.5 MCV 92.9 MCH 29.2 MCHC 31.4 RDW 15.1 H Plt Count 241 MPV 10.6 Gran % 71.6 H Lymph % (Auto) 18.7 L Clarke % (Auto) 8.3 H Eos % (Auto) 1.1 L Baso % (Auto) 0.3 Gran # 4.99 Lymph # (Auto) 1.3 Clarke # (Auto) 0.6 Eos # (Auto) 0.1 Baso # (Auto) 0.02 POC Glucose (mg/dL) 110 no signs of arganulocytosis PT was registered to [facility] CXR WNL 02/14/18 Laboratory Results - last 72 hr 02/12/18 02/12/18 02/13/18 15:39 21:04 07:38 WBC RBC Hgb Hct MCV MCH MCHC RDW Plt Count MPV Sodium Potassium Chloride Carbon Dioxide Anion Gap BUN Creatinine Est GFR ( Amer) Est GFR (Non-Af Amer) POC Glucose (mg/dL) 120 H 108 238 H Random Glucose Hemoglobin A1c Calcium Total Bilirubin AST ALT Alkaline Phosphatase NT-Pro-B Natriuret Pep Total Protein Albumin Globulin Albumin/Globulin Ratio Procalcitonin Urine Color Urine Appearance Urine pH Ur Specific [place] Urine Protein Urine Glucose (UA) Urine Ketones Urine Blood Urine Nitrate Urine Bilirubin Urine Urobilinogen Ur Leukocyte Esterase Urine RBC Urine WBC Ur Epithelial Cells Urine Bacteria Urine Osmolality 02/13/18 02/13/18 02/13/18 11:37 16:01 21:21 WBC RBC Hgb Hct MCV MCH MCHC RDW Plt Count MPV Sodium Potassium Chloride Carbon Dioxide Anion Gap BUN Creatinine Est GFR ( Amer) Est GFR (Non-Af Amer) POC Glucose (mg/dL) 110 118 H 113 H Random Glucose Hemoglobin A1c Calcium Total Bilirubin AST ALT Alkaline Phosphatase NT-Pro-B Natriuret Pep Total Protein Albumin Globulin Albumin/Globulin Ratio Procalcitonin Urine Color Urine Appearance Urine pH Ur Specific [place] Urine Protein Urine Glucose (UA) Urine Ketones Urine Blood Urine Nitrate Urine Bilirubin Urine Urobilinogen Ur Leukocyte Esterase Urine RBC Urine WBC Ur Epithelial Cells Urine Bacteria Urine Osmolality 02/14/18 02/14/18 02/14/18 07:30 07:30 07:30 WBC 4.7 RBC 4.55 Hgb 13.2 Hct 41.8 MCV 91.9 MCH 29.0 MCHC 31.6 RDW 14.6 H Plt Count 215 MPV 10.5 Sodium 152 H Potassium 4.6 Chloride 113 H Carbon Dioxide 30 Anion Gap 15 BUN 14 Creatinine 0.8 Est GFR ( Amer) > 60 Est GFR (Non-Af Amer) > 60 POC Glucose (mg/dL) Random Glucose 96 Hemoglobin A1c 5.4 Calcium 10.4 Total Bilirubin 0.2 AST 24 ALT 35 Alkaline Phosphatase 175 H NT-Pro-B Natriuret Pep Total Protein 7.0 Albumin 3.5 Globulin 3.4 Albumin/Globulin Ratio 1.0 L Procalcitonin Urine Color Urine Appearance Urine pH Ur Specific [place] Urine Protein Urine Glucose (UA) Urine Ketones Urine Blood Urine Nitrate Urine Bilirubin Urine Urobilinogen Ur Leukocyte Esterase Urine RBC Urine WBC Ur Epithelial Cells Urine Bacteria Urine Osmolality 02/14/18 02/14/18 02/14/18 07:30 07:31 11:28 WBC RBC Hgb Hct MCV MCH MCHC RDW Plt Count MPV Sodium Potassium Chloride Carbon Dioxide Anion Gap BUN Creatinine Est GFR ( Amer) Est GFR (Non-Af Amer) POC Glucose (mg/dL) 97 138 H Random Glucose Hemoglobin A1c Calcium Total Bilirubin AST ALT Alkaline Phosphatase NT-Pro-B Natriuret Pep 44.3 Total Protein Albumin Globulin Albumin/Globulin Ratio Procalcitonin Urine Color Urine Appearance Urine pH Ur Specific [place] Urine Protein Urine Glucose (UA) Urine Ketones Urine Blood Urine Nitrate Urine Bilirubin Urine Urobilinogen Ur Leukocyte Esterase Urine RBC Urine WBC Ur Epithelial Cells Urine Bacteria Urine Osmolality 02/14/18 02/14/18 02/14/18 16:31 18:52 18:52 WBC RBC Hgb Hct MCV MCH MCHC RDW Plt Count MPV Sodium Potassium Chloride Carbon Dioxide Anion Gap BUN Creatinine Est GFR ( Amer) Est GFR (Non-Af Amer) POC Glucose (mg/dL) 163 H Random Glucose Hemoglobin A1c Calcium Total Bilirubin AST ALT Alkaline Phosphatase NT-Pro-B Natriuret Pep Total Protein Albumin Globulin Albumin/Globulin Ratio Procalcitonin Urine Color Yellow Urine Appearance Turbid Urine pH 6.5 Ur Specific [place] <= 1.005 Urine Protein Negative Urine Glucose (UA) Negative Urine Ketones Negative Urine Blood Moderate H Urine Nitrate Negative Urine Bilirubin Negative Urine Urobilinogen 0.2 Ur Leukocyte Esterase Trace H Urine RBC 1 - 3 Urine WBC 0 - 2 Ur Epithelial Cells 4 - 5 Urine Bacteria Few Urine Osmolality 217 L 02/14/18 02/15/18 02/15/18 21:04 05:50 05:50 WBC RBC Hgb Hct MCV MCH MCHC RDW Plt Count MPV Sodium 145 Potassium 4.0 Chloride 105 Carbon Dioxide 28 Anion Gap 16 BUN 18 Creatinine 0.9 Est GFR ( Amer) > 60 Est GFR (Non-Af Amer) > 60 POC Glucose (mg/dL) 110 Random Glucose 108 Hemoglobin A1c Calcium 10.2 Total Bilirubin AST ALT Alkaline Phosphatase NT-Pro-B Natriuret Pep Total Protein Albumin Globulin Albumin/Globulin Ratio Procalcitonin < 0.05 L Urine Color Urine Appearance Urine pH Ur Specific [place] Urine Protein Urine Glucose (UA) Urine Ketones Urine Blood Urine Nitrate Urine Bilirubin Urine Urobilinogen Ur Leukocyte Esterase Urine RBC Urine WBC Ur Epithelial Cells Urine Bacteria Urine Osmolality 02/15/18 02/15/18 07:22 11:30 WBC RBC Hgb Hct MCV MCH MCHC RDW Plt Count MPV Sodium Potassium Chloride Carbon Dioxide Anion Gap BUN Creatinine Est GFR ( Amer) Est GFR (Non-Af Amer) POC Glucose (mg/dL) 112 H 78 Random Glucose Hemoglobin A1c Calcium Total Bilirubin AST ALT Alkaline Phosphatase NT-Pro-B Natriuret Pep Total Protein Albumin Globulin Albumin/Globulin Ratio Procalcitonin Urine Color Urine Appearance Urine pH Ur Specific [place] Urine Protein Urine Glucose (UA) Urine Ketones Urine Blood Urine Nitrate Urine Bilirubin Urine Urobilinogen Ur Leukocyte Esterase Urine RBC Urine WBC Ur Epithelial Cells Urine Bacteria Urine Osmolality Laboratory Results - last 24 hr 02/16/18 02/16/18 02/17/18 16:38 21:54 06:45 WBC 6.0 RBC 4.48 Hgb 12.8 Hct 39.8 MCV 88.8 MCH 28.6 MCHC 32.2 RDW 14.3 Plt Count 259 MPV 11.0 Gran % 54.2 Lymph % (Auto) 27.2 [place] % (Auto) 15.2 H Eos % (Auto) 3.1 Baso % (Auto) 0.3 Gran # 3.27 Lymph # (Auto) 1.6 [place] # (Auto) 0.9 H Eos # (Auto) 0.2 Baso # (Auto) 0.02 POC Glucose (mg/dL) 128 H 127 H 02/17/18 02/17/18 07:22 11:39 WBC RBC Hgb Hct MCV MCH MCHC RDW Plt Count MPV Gran % Lymph % (Auto) [place] % (Auto) Eos % (Auto) Baso % (Auto) Gran # Lymph # (Auto) [place] # (Auto) Eos # (Auto) Baso # (Auto) POC Glucose (mg/dL) 107 116 H no signs of agranulocytosis, labs submitted to clozaril rems 02/17/18 DSM 5 Symptoms Update: shortly patient is 62-year- female, reported h/o Bipolar disorder, not known h/ o suicidal attempts, not known h/o psychiatric admissions, pt was transferred from the [facility] in [place] where she was getting subacute care for orthopedic surgery, pt was transferred from the facility for evaluation of disorganized, psychotic, agitated and aggressive behavior. As per report from the [facility] facility, pt was sexually preoccupied/constantly disrobing or walking around naked, pt was also responding to internal stimuli, pt also broke drawers in facility, was pouring water over other residents, previously pt was in assisted living, pt was able to sign consent for treatment. as per report from the nursing staff patient started to have some positive changes, pt is much calmer, pt is not trying to attack people. pt was observed coloring today, pt said that she remembers this life underwriter, "I know you are a doctor, give me some water or juice". at the same time pt was disorganized, but some meaningful conversation is possible. At the same time patient is psychotic, bt not abusive towards 1:1 sitter. As per staff report, patient has good appetite, sleep was fair. pt has no side effects of meds, AIMS 0, no EPS. Impression: Schizoaffective disorder delirium better Medication Change: Yes (clozaril titration, thorazin d/c) Medical Record Reviewed: Yes Consults ordered or reviewed: medical consult appreciated, nephrology consult appreciated. discussed case with Dr. Adams 02/04/18, sodium was climbing up, we'll of course patient drinking plenty of water discussed with Dr. Jaffe 02/04/18, he shouldn't should continue antibiotics for another 5 days, last dose February 09 discussed with 02/14/18 pt was started on Thiazide. current labs wnl Mental Status Examination - Cognitive Function Orientation: Person Memory: Impaired Attention: Poor (some improvement) Concentration: Poor (some improvement) Association: Loose Fund of Knowledge: Poor - Mood Mood: Depressed ("I don't feel that good"), Anxious - Affect Affect: Flat, Depressed - Formal Thought Process Formal Thought Process: Delusions, Paranoia (less paranoid), Loosening of associations - Suicidal Ideation Suicidal Ideation: No - Homicidal Ideation Homicidal Ideation: No Goal/Treatment Plan - Goal/Treatment Plan Need for Continued Stay: Remain at risks for inpatient hospitalization, Severe depression anxiety, Discharge may exacerbated symptoms, Failed transitioning, Severe functional impairment Progress Toward Problem(s) and Goals/Treatment Plan: milieu/structure/supportive therapy seroquel discontinued Clozaril on titration schedule Pt was registered on [facility] on weekly monitoring blood work 02/17/18 within normal limits thorazine discontinue 02/17/2018 depakote 250mg po bid and hs for mood stabilization depakote level was 43 02/16/2018 Xanax1 mg 3 times a day scheduled sonata as needed nephrology and medical team involved SW consultation for discharge plan and social issues psychiatrist was contacted, awaiting for call back Family involvement Follow up on labs Will monitor closely Pt was educated about risk/benefits and alternatives of medications, coping strategies (safety plan, suicide prevention), relapse prevention, importance of follow up with psychiatrist and therapist, stay away from drugs/alcohol/smoking patient still required to be on one-to-one Estimated Date of D/C: 02/21/18
[2018-02-18] MEDS: Insulin Reg-MEDIUM-Coverage SC SCH ×4 (07:30→21:15)
[2018-02-18] MEDS: Albuterol-Ipratrop 3 mg / 0.5 (3 ml) UD IH SCH ×3 (08:36→20:12)
[2018-02-18] MEDS: Divalproex 250 mg ER (ONCE DAILY formulation) PO SCH ×2 (09:17→21:10)
[2018-02-18] MEDS: Lactobacillus Acidophilus 500 MU Cap PO SCH (09:17)
[2018-02-18] MEDS: Amoxicillin-Clav 500-125 mg Tab PO SCH ×2 (09:17→17:27)
[2018-02-18] MEDS: Enoxaparin 30 mg Syringe SC SCH (09:18)
[2018-02-18] MEDS: guaiFENesin 600 mg ER Tab PO SCH ×2 (09:24→17:28)
--- NOTE | 2018-02-18 12:55 | PCM.PYCHPN ---
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 patient is too psychotic to understand Medical Problems: New UTI better, pt had been at the assisted living facility at [facility] since her ortho surgery 11/2017; anemia pt's PCP is Guido Feliz. Diagnostic Results: 02/02/18 06:50 02/02/18 06:50 Lab Results 02/03/18 11:51: POC Glucose (mg/dL) 97 02/03/18 09:13: POC Glucose (mg/dL) 160 H 02/02/18 23:20: Urine Osmolality 157 L, Ur Random Sodium 12 02/02/18 21:07: POC Glucose (mg/dL) 110 02/02/18 17:01: POC Glucose (mg/dL) 104 02/02/18 09:35: Phosphorus 3.4, Magnesium 2.8 H 02/02/18 09:35: 25-OH Vitamin D Total 25.4 L 02/02/18 09:35: Total Protein (PEP) 6.8, Albumin (PEP) 3.7 L, Vhepp-0-Tnekyhaoo 0.4 H, Nxsmv-7-Bmlkohagu 0.8, Ujzi-1-Vsamlskl 0.4, Qndw-8-Snvxjwop 0.3, Gamma Globulins 1.1, Abnorm Protein Band 1 TEST NOT PERFORMED, Abnorm Protein Band 2 TEST NOT PERFORMED, Abnorm Protein Band 3 TEST NOT PERFORMED, RANDOLPH & SPEP Interp See note, Serum Immunofixation Pending, Tot Cosby/Lambda Ratio Pending, Cosby Light Chain Anal Pending, Lambda Light Chain Anal Pending 02/02/18 09:35: PTH Intact Whole Molec 153 H 02/02/18 06:50: RPR Nonreactive 02/02/18 06:50: TSH 3rd Generation 1.05 02/02/18 06:50: Sodium 148, Potassium 3.7, Chloride 113 H, Carbon Dioxide 23, Anion Gap 17, BUN 20, Creatinine 1.0, Est GFR ( Amer) > 60, Est GFR (Non- Af Amer) 56, Random Glucose 115 H, Fasting Glucose 115 H, Calcium 10.7 H, Total Bilirubin 0.8, AST 29, ALT 32, Alkaline Phosphatase 219 H, Total Protein 7.4, Albumin 4.1, Globulin 3.3, Albumin/Globulin Ratio 1.2, Triglycerides 112, Cholesterol 174, LDL Cholesterol Direct 95, HDL Cholesterol 52 02/02/18 06:50: WBC 12.8 H, RBC 4.43, Hgb 12.6, Hct 40.4, MCV 91.2, MCH 28.4, MCHC 31.2, RDW 15.2 H, Plt Count 272, MPV 10.6, Gran % 79.0 H, Lymph % (Auto) 9.8 L, Churchill % (Auto) 9.9 H, Eos % (Auto) 0.9 L, Baso % (Auto) 0.4, Gran # 10.09 H, Lymph # (Auto) 1.3, Churchill # (Auto) 1.3 H, Eos # (Auto) 0.1, Baso # (Auto) 0.05 02/02/18 06:50: [place] 1.0 02/01/18 16:01: Urine Opiates Screen Negative, Urine Methadone Screen Negative, Ur Barbiturates Screen Negative, Ur Phencyclidine Scrn Negative, Ur Amphetamines Screen Negative, U Benzodiazepines Scrn Negative, U Oth Cocaine Metabols Negative, U Cannabinoids Screen Negative 02/01/18 16:01: Urine Color Yellow, Urine Appearance Sl cloudy, Urine pH 6.0, Ur Specific [place] 1.010, Urine Protein Negative, Urine Glucose (UA) Negative, Urine Ketones Negative, Urine Blood Small H, Urine Nitrate Negative, Urine Bilirubin Negative, Urine Urobilinogen 0.2, Ur Leukocyte Esterase Large H, Urine RBC 0 - 2, Urine WBC 10 - 15, Urine Bacteria Trace 02/01/18 13:47: [place] 1.5 H 02/01/18 13:47: Alcohol, Quantitative < 10 02/01/18 13:47: Salicylates < 1 L, Acetaminophen < 10.0 L 02/01/18 13:47: Sodium 144, Potassium 3.5 L, Chloride 109 H, Carbon Dioxide 25, Anion Gap 13, BUN 19, Creatinine 1.2, Est GFR ( Amer) 55, Est GFR (Non- Af Amer) 46, Random Glucose 112 H, Calcium 10.8 H, Total Bilirubin 0.5, AST 31, ALT 38, Alkaline Phosphatase 189 H, Total Protein 7.0, Albumin 3.9, Globulin 3.1 , Albumin/Globulin Ratio 1.3 02/01/18 13:47: WBC 15.0 H, RBC 4.39, Hgb 12.8, Hct 39.7, MCV 90.4, MCH 29.2, MCHC 32.2, RDW 15.0 H, Plt Count 242, MPV 10.0, Gran % 81.7 H, Lymph % (Auto) 8.3 L, [place] % (Auto) 9.5 H, Eos % (Auto) 0.3 L, Baso % (Auto) 0.2, Gran # 12.24 H, Lymph # (Auto) 1.2, [place] # (Auto) 1.4 H, Eos # (Auto) 0.0, Baso # (Auto) 0.03 Vital Signs Temp Pulse Resp BP Pulse Ox 02/03/18 07:34 97.6 F 87 20 130/78 02/02/18 16:00 106 H 121/71 02/02/18 07:33 98.0 F 57 L 20 146/84 02/01/18 22:00 20 02/01/18 15:23 104 H 18 151/87 H 98 02/01/18 13:14 98.3 F 98 H 18 138/78 99 Laboratory Results - last 24 hr 02/02/18 02/03/18 02/04/18 09:35 21:17 07:15 WBC 8.5 D RBC 4.33 Hgb 12.6 Hct 39.8 MCV 91.9 MCH 29.1 MCHC 31.7 RDW 15.3 H Plt Count 278 MPV 10.2 Sodium Potassium Chloride Carbon Dioxide Anion Gap BUN Creatinine Est GFR ( Amer) Est GFR (Non-Af Amer) POC Glucose (mg/dL) 154 H Random Glucose Calcium Total Bilirubin AST ALT Alkaline Phosphatase Total Protein Albumin Globulin Albumin/Globulin Ratio Serum Immunofixation Not detected Tot Cosby/Lambda Ratio 2.28 Cosby Light Chain Anal 239 Lambda Light Chain Anal 105 02/04/18 02/04/18 02/04/18 07:15 07:37 12:08 WBC RBC Hgb Hct MCV MCH MCHC RDW Plt Count MPV Sodium 151 H Potassium 4.3 Chloride 114 H Carbon Dioxide 27 Anion Gap 14 BUN 16 Creatinine 0.8 Est GFR ( Amer) > 60 Est GFR (Non-Af Amer) > 60 POC Glucose (mg/dL) 102 95 Random Glucose 112 H Calcium 10.6 H Total Bilirubin 0.4 AST 24 ALT 30 Alkaline Phosphatase 194 H Total Protein 7.0 Albumin 3.7 Globulin 3.3 Albumin/Globulin Ratio 1.1 Serum Immunofixation Tot Cosby/Lambda Ratio Cosby Light Chain Anal Lambda Light Chain Anal 02/04/18 16:11 WBC RBC Hgb Hct MCV MCH MCHC RDW Plt Count MPV Sodium Potassium Chloride Carbon Dioxide Anion Gap BUN Creatinine Est GFR ( Amer) Est GFR (Non-Af Amer) POC Glucose (mg/dL) 88 Random Glucose Calcium Total Bilirubin AST ALT Alkaline Phosphatase Total Protein Albumin Globulin Albumin/Globulin Ratio Serum Immunofixation Tot Cosby/Lambda Ratio Cosby Light Chain Anal Lambda Light Chain Anal Temp Pulse Resp BP Pulse Ox 97.9 F 80 20 134/78 98 02/04/18 07:00 02/04/18 07:00 02/04/18 07:00 02/04/18 07:00 02/01/18 15:23 Abnormal Lab Results 02/05/18 02/05/18 02/06/18 16:26 21:13 07:00 WBC 6.5 D RBC 4.29 Hgb 12.5 Hct 39.3 MCV 91.6 MCH 29.1 MCHC 31.8 RDW 15.1 H Plt Count 260 MPV 10.6 Sodium Potassium Chloride Carbon Dioxide Anion Gap BUN Creatinine Est GFR ( Amer) Est GFR (Non-Af Amer) POC Glucose (mg/dL) 98 99 Random Glucose Calcium Total Bilirubin AST ALT Alkaline Phosphatase Total Protein Albumin Globulin Albumin/Globulin Ratio 02/06/18 02/06/18 02/06/18 07:00 07:40 11:06 WBC RBC Hgb Hct MCV MCH MCHC RDW Plt Count MPV Sodium 145 Potassium 4.1 Chloride 109 H Carbon Dioxide 30 Anion Gap 10 BUN 16 Creatinine 0.8 Est GFR ( Amer) > 60 Est GFR (Non-Af Amer) > 60 POC Glucose (mg/dL) 85 93 Random Glucose 100 Calcium 10.0 Total Bilirubin 0.4 AST 32 ALT 45 Alkaline Phosphatase 203 H Total Protein 6.6 Albumin 3.5 Globulin 3.1 Albumin/Globulin Ratio 1.1 Temp Pulse Resp BP Pulse Ox 97.3 F L 94 H 20 145/84 98 02/06/18 07:53 02/06/18 07:53 02/06/18 07:53 02/06/18 07:53 02/01/18 15:23 Laboratory Results - last 24 hr 02/06/18 02/07/18 02/07/18 22:02 06:15 06:15 WBC 5.7 RBC 4.32 Hgb 12.5 Hct 39.8 MCV 92.1 MCH 28.9 MCHC 31.4 RDW 15.2 H Plt Count 237 MPV 10.4 Sodium 144 Potassium 4.6 Chloride 110 H Carbon Dioxide 27 Anion Gap 12 BUN 15 Creatinine 0.8 Est GFR ( Amer) > 60 Est GFR (Non-Af Amer) > 60 POC Glucose (mg/dL) 89 Random Glucose 95 Calcium 9.8 Total Bilirubin 0.4 AST 30 ALT 53 Alkaline Phosphatase 195 H Total Protein 6.7 Albumin 3.6 Globulin 3.1 Albumin/Globulin Ratio 1.2 02/07/18 12:59 WBC RBC Hgb Hct MCV MCH MCHC RDW Plt Count MPV Sodium Potassium Chloride Carbon Dioxide Anion Gap BUN Creatinine Est GFR ( Amer) Est GFR (Non-Af Amer) POC Glucose (mg/dL) 158 H Random Glucose Calcium Total Bilirubin AST ALT Alkaline Phosphatase Total Protein Albumin Globulin Albumin/Globulin Ratio Temp Pulse Resp BP Pulse Ox 98.3 F 86 20 77/47 L 98 02/07/18 07:37 02/07/18 07:37 02/07/18 07:37 02/07/18 07:37 02/01/18 15:23 Laboratory Results - last 24 hr 02/09/18 02/09/18 02/10/18 16:30 20:56 08:26 WBC RBC Hgb Hct MCV MCH MCHC RDW Plt Count MPV Gran % Lymph % (Auto) [place] % (Auto) Eos % (Auto) Baso % (Auto) Gran # Lymph # (Auto) [place] # (Auto) Eos # (Auto) Baso # (Auto) POC Glucose (mg/dL) 120 H 132 H 81 02/10/18 02/10/18 11:01 12:32 WBC 7.0 D RBC 4.25 Hgb 12.4 Hct 39.5 MCV 92.9 MCH 29.2 MCHC 31.4 RDW 15.1 H Plt Count 241 MPV 10.6 Gran % 71.6 H Lymph % (Auto) 18.7 L Churchill % (Auto) 8.3 H Eos % (Auto) 1.1 L Baso % (Auto) 0.3 Gran # 4.99 Lymph # (Auto) 1.3 Churchill # (Auto) 0.6 Eos # (Auto) 0.1 Baso # (Auto) 0.02 POC Glucose (mg/dL) 110 no signs of arganulocytosis PT was registered to [facility]S CXR WNL 02/14/18 Laboratory Results - last 72 hr 02/12/18 02/12/18 02/13/18 15:39 21:04 07:38 WBC RBC Hgb Hct MCV MCH MCHC RDW Plt Count MPV Sodium Potassium Chloride Carbon Dioxide Anion Gap BUN Creatinine Est GFR ( Amer) Est GFR (Non-Af Amer) POC Glucose (mg/dL) 120 H 108 238 H Random Glucose Hemoglobin A1c Calcium Total Bilirubin AST ALT Alkaline Phosphatase NT-Pro-B Natriuret Pep Total Protein Albumin Globulin Albumin/Globulin Ratio Procalcitonin Urine Color Urine Appearance Urine pH Ur Specific [place] Urine Protein Urine Glucose (UA) Urine Ketones Urine Blood Urine Nitrate Urine Bilirubin Urine Urobilinogen Ur Leukocyte Esterase Urine RBC Urine WBC Ur Epithelial Cells Urine Bacteria Urine Osmolality 02/13/18 02/13/18 02/13/18 11:37 16:01 21:21 WBC RBC Hgb Hct MCV MCH MCHC RDW Plt Count MPV Sodium Potassium Chloride Carbon Dioxide Anion Gap BUN Creatinine Est GFR ( Amer) Est GFR (Non-Af Amer) POC Glucose (mg/dL) 110 118 H 113 H Random Glucose Hemoglobin A1c Calcium Total Bilirubin AST ALT Alkaline Phosphatase NT-Pro-B Natriuret Pep Total Protein Albumin Globulin Albumin/Globulin Ratio Procalcitonin Urine Color Urine Appearance Urine pH Ur Specific [place] Urine Protein Urine Glucose (UA) Urine Ketones Urine Blood Urine Nitrate Urine Bilirubin Urine Urobilinogen Ur Leukocyte Esterase Urine RBC Urine WBC Ur Epithelial Cells Urine Bacteria Urine Osmolality 02/14/18 02/14/18 02/14/18 07:30 07:30 07:30 WBC 4.7 RBC 4.55 Hgb 13.2 Hct 41.8 MCV 91.9 MCH 29.0 MCHC 31.6 RDW 14.6 H Plt Count 215 MPV 10.5 Sodium 152 H Potassium 4.6 Chloride 113 H Carbon Dioxide 30 Anion Gap 15 BUN 14 Creatinine 0.8 Est GFR ( Amer) > 60 Est GFR (Non-Af Amer) > 60 POC Glucose (mg/dL) Random Glucose 96 Hemoglobin A1c 5.4 Calcium 10.4 Total Bilirubin 0.2 AST 24 ALT 35 Alkaline Phosphatase 175 H NT-Pro-B Natriuret Pep Total Protein 7.0 Albumin 3.5 Globulin 3.4 Albumin/Globulin Ratio 1.0 L Procalcitonin Urine Color Urine Appearance Urine pH Ur Specific [place] Urine Protein Urine Glucose (UA) Urine Ketones Urine Blood Urine Nitrate Urine Bilirubin Urine Urobilinogen Ur Leukocyte Esterase Urine RBC Urine WBC Ur Epithelial Cells Urine Bacteria Urine Osmolality 02/14/18 02/14/18 02/14/18 07:30 07:31 11:28 WBC RBC Hgb Hct MCV MCH MCHC RDW Plt Count MPV Sodium Potassium Chloride Carbon Dioxide Anion Gap BUN Creatinine Est GFR ( Amer) Est GFR (Non-Af Amer) POC Glucose (mg/dL) 97 138 H Random Glucose Hemoglobin A1c Calcium Total Bilirubin AST ALT Alkaline Phosphatase NT-Pro-B Natriuret Pep 44.3 Total Protein Albumin Globulin Albumin/Globulin Ratio Procalcitonin Urine Color Urine Appearance Urine pH Ur Specific [place] Urine Protein Urine Glucose (UA) Urine Ketones Urine Blood Urine Nitrate Urine Bilirubin Urine Urobilinogen Ur Leukocyte Esterase Urine RBC Urine WBC Ur Epithelial Cells Urine Bacteria Urine Osmolality 02/14/18 02/14/18 02/14/18 16:31 18:52 18:52 WBC RBC Hgb Hct MCV MCH MCHC RDW Plt Count MPV Sodium Potassium Chloride Carbon Dioxide Anion Gap BUN Creatinine Est GFR ( Amer) Est GFR (Non-Af Amer) POC Glucose (mg/dL) 163 H Random Glucose Hemoglobin A1c Calcium Total Bilirubin AST ALT Alkaline Phosphatase NT-Pro-B Natriuret Pep Total Protein Albumin Globulin Albumin/Globulin Ratio Procalcitonin Urine Color Yellow Urine Appearance Turbid Urine pH 6.5 Ur Specific [place] <= 1.005 Urine Protein Negative Urine Glucose (UA) Negative Urine Ketones Negative Urine Blood Moderate H Urine Nitrate Negative Urine Bilirubin Negative Urine Urobilinogen 0.2 Ur Leukocyte Esterase Trace H Urine RBC 1 - 3 Urine WBC 0 - 2 Ur Epithelial Cells 4 - 5 Urine Bacteria Few Urine Osmolality 217 L 02/14/18 02/15/18 02/15/18 21:04 05:50 05:50 WBC RBC Hgb Hct MCV MCH MCHC RDW Plt Count MPV Sodium 145 Potassium 4.0 Chloride 105 Carbon Dioxide 28 Anion Gap 16 BUN 18 Creatinine 0.9 Est GFR ( Amer) > 60 Est GFR (Non-Af Amer) > 60 POC Glucose (mg/dL) 110 Random Glucose 108 Hemoglobin A1c Calcium 10.2 Total Bilirubin AST ALT Alkaline Phosphatase NT-Pro-B Natriuret Pep Total Protein Albumin Globulin Albumin/Globulin Ratio Procalcitonin < 0.05 L Urine Color Urine Appearance Urine pH Ur Specific [place] Urine Protein Urine Glucose (UA) Urine Ketones Urine Blood Urine Nitrate Urine Bilirubin Urine Urobilinogen Ur Leukocyte Esterase Urine RBC Urine WBC Ur Epithelial Cells Urine Bacteria Urine Osmolality 02/15/18 02/15/18 07:22 11:30 WBC RBC Hgb Hct MCV MCH MCHC RDW Plt Count MPV Sodium Potassium Chloride Carbon Dioxide Anion Gap BUN Creatinine Est GFR ( Amer) Est GFR (Non-Af Amer) POC Glucose (mg/dL) 112 H 78 Random Glucose Hemoglobin A1c Calcium Total Bilirubin AST ALT Alkaline Phosphatase NT-Pro-B Natriuret Pep Total Protein Albumin Globulin Albumin/Globulin Ratio Procalcitonin Urine Color Urine Appearance Urine pH Ur Specific [place] Urine Protein Urine Glucose (UA) Urine Ketones Urine Blood Urine Nitrate Urine Bilirubin Urine Urobilinogen Ur Leukocyte Esterase Urine RBC Urine WBC Ur Epithelial Cells Urine Bacteria Urine Osmolality Laboratory Results - last 24 hr 02/16/18 02/16/18 02/17/18 16:38 21:54 06:45 WBC 6.0 RBC 4.48 Hgb 12.8 Hct 39.8 MCV 88.8 MCH 28.6 MCHC 32.2 RDW 14.3 Plt Count 259 MPV 11.0 Gran % 54.2 Lymph % (Auto) 27.2 [place] % (Auto) 15.2 H Eos % (Auto) 3.1 Baso % (Auto) 0.3 Gran # 3.27 Lymph # (Auto) 1.6 [place] # (Auto) 0.9 H Eos # (Auto) 0.2 Baso # (Auto) 0.02 POC Glucose (mg/dL) 128 H 127 H 02/17/18 02/17/18 07:22 11:39 WBC RBC Hgb Hct MCV MCH MCHC RDW Plt Count MPV Gran % Lymph % (Auto) [place] % (Auto) Eos % (Auto) Baso % (Auto) Gran # Lymph # (Auto) [place] # (Auto) Eos # (Auto) Baso # (Auto) POC Glucose (mg/dL) 107 116 H no signs of agranulocytosis, labs submitted to clozaril rems 02/17/18 DSM 5 Symptoms Update: shortly patient is 62-year- female, reported h/o Bipolar disorder, not known h/ o suicidal attempts, not known h/o psychiatric admissions, pt was transferred from the [facility] in [place] where she was getting subacute care for orthopedic surgery, pt was transferred from the facility for evaluation of disorganized, psychotic, agitated and aggressive behavior. As per report from the [place] facility, pt was sexually preoccupied/constantly disrobing or walking around naked, pt was also responding to internal stimuli, pt also broke drawers in facility, was pouring water over other residents, previously pt was in assisted living, pt was able to sign consent for treatment. as per report from the nursing staff patient started to have some positive changes, pt was much calmer yesterday, slept through the night. To the patient was evaluated at the TV area, pt was screaming out loud "remove me from that chair, I want to go, let me go", pt was sitting at the geriatric chair, seems to be comfortable, but screaming, yelling "you are bustards, remove me from this chair", pt is very high risk of falls, ambulates only with two people assistance. pt is still paranoid, but in less extent, at the same time pt was disorganized, but some meaningful conversation is possible. as per PCP pt ate 100% of her meal. pt was abusive towards 1:1 sitter, using profanities. pt has no side effects of meds, AIMS 0, no EPS, pt tolerates clozaril well. Impression: Schizoaffective disorder delirium better Medication Change: Yes (clozaril titration) Medical Record Reviewed: Yes Mental Status Examination - Cognitive Function Orientation: Person Memory: Impaired Attention: Poor (some improvement) Concentration: Poor (some improvement) Association: Loose Fund of Knowledge: Poor - Mood Mood: Depressed ("I don't feel that good"), Anxious - Affect Affect: Flat, Depressed - Formal Thought Process Formal Thought Process: Delusions, Paranoia (less paranoid), Loosening of associations - Suicidal Ideation Suicidal Ideation: No - Homicidal Ideation Homicidal Ideation: No Goal/Treatment Plan - Goal/Treatment Plan Need for Continued Stay: Remain at risks for inpatient hospitalization, Severe depression anxiety, Discharge may exacerbated symptoms, Failed transitioning, Severe functional impairment Progress Toward Problem(s) and Goals/Treatment Plan: milieu/structure/supportive therapy seroquel discontinued Clozaril on titration schedule 02/19/18 clozaril 100mg amhs 02/20/18 clozaril 100mg am and 200mg hs Pt was registered on [facility] REMS on weekly monitoring blood work 02/17/18 within normal limits thorazine discontinue 02/17/2018 depakote 250mg po bid and hs for mood stabilization depakote level was 43 02/16/2018 Xanax1 mg 3 times a day scheduled sonata as needed nephrology and medical team involved SW consultation for discharge plan and social issues psychiatrist was contacted, awaiting for call back Family involvement Follow up on labs Will monitor closely Pt was educated about risk/benefits and alternatives of medications, coping strategies (safety plan, suicide prevention), relapse prevention, importance of follow up with psychiatrist and therapist, stay away from drugs/alcohol/smoking patient still required to be on one-to-one Estimated Date of D/C: 02/21/18
--- NOTE | 2018-02-18 13:31 | PN ---
DATE: SUBJECTIVE: I saw her resting comfortably in hospital bed on the Psych floor. She has a one-to-one sitter. She is alert, comfortable. Says that she was comfortable last night. No aggressiveness. She is on Ativan, Augmentin, Bacid, Clozaril, Colace, Depakote, DuoNeb, Feosol, folic acid, insulin, [place], Lovenox, Maalox, milk of magnesia, Mucinex, the oxycodone is now p.r.n which is great, Sonata, Thorazine, Tylenol, and Xanax. PHYSICAL EXAMINATION: VITAL SIGNS: She has a 98.1 temperature, 86 pulse, 109/64 blood pressure, 20 respiratory rate. HEENT: Head is atraumatic, normocephalic. HEART: Regular rate. LUNGS: Clear to auscultation. ABDOMEN: Soft. EXTREMITIES: No edema. LABORATORY DATA: She has a 6 white count, 12.8 hemoglobin, 39.8 hematocrit with 259 platelets. Sodium 142, potassium 3.8, BUN 18, creatinine 0.9, GFR is greater than 60, sugar is 95 and 112, calcium is 10.1. Total bilirubin is 0.1, AST is 27, ALT is 37, alkaline phosphatase 162. She is being seen by Psychiatry and Renal. Overall, I think she is doing stable medically. We will continue with treatment and care. I am not going to order any labs for tomorrow. I will continue to follow. She is here for upper respiratory infection, urinary tract infection, bipolar. Tien Jaffe DO
[2018-02-19] MEDS: Albuterol-Ipratrop 3 mg / 0.5 (3 ml) UD IH SCH ×4 (03:06→22:30)
[2018-02-19] MEDS: Insulin Reg-MEDIUM-Coverage SC SCH ×4 (08:12→23:15)
--- NOTE | 2018-02-19 09:00 | PN ---
DATE: SUBJECTIVE: She is resting comfortably in a Judith chair in the Psychiatric Unit. MEDICATIONS: She is on Ativan, Augmentin, Bacid, Clozaril, Colace, Depakote, DuoNeb, Feosol, folic acid, [place], Lovenox, Maalox, milk of magnesia, Mucinex, oxycodone, Sonata, Thorazine, Tylenol, and Xanax. PHYSICAL EXAMINATION: VITAL SIGNS: 98.6 temperature, 92 pulse, 121/74 blood pressure, 20 respiratory rate. HEENT: Head is atraumatic, normocephalic. HEART: Regular rate. LUNGS: Clear to auscultation. ABDOMEN: Soft. EXTREMITIES: No edema. LABORATORY DATA: She has a 6 white count, 12.8 hemoglobin, 259 platelets. Last blood sugar was 144. ASSESSMENT AND PLAN: Overall, I think she is doing stable. She has been stable for a few days now, as per Psychiatry. We will continue with aggressive treatment and care. She has upper respiratory infection, urinary tract infection, bipolar. Tien Jaffe DO
[2018-02-19] MEDS: Lactobacillus Acidophilus 500 MU Cap PO SCH (09:13)
[2018-02-19] MEDS: guaiFENesin 600 mg ER Tab PO SCH ×2 (09:13→16:36)
[2018-02-19] MEDS: Amoxicillin-Clav 500-125 mg Tab PO SCH ×2 (09:14→16:36)
[2018-02-19] MEDS: Divalproex 250 mg ER (ONCE DAILY formulation) PO SCH ×2 (09:14→21:20)
[2018-02-19] MEDS: Enoxaparin 30 mg Syringe SC SCH (09:15)
--- NOTE | 2018-02-19 10:09 | PCM.PYCHPN ---
Psychiatric Progress Note - Psychiatric Progress Note Patient seen today, length of contact: 25 min Patient Chief Complaint: fine Problems Identified/Issues Discussed: Patient is a 62-year- female, reported h/o Bipolar disorder, no known history of suicidal attempts, or prior psychiatric admissions who was transferred from the [facility] in [place] (where she was getting subacute care for orthopedic surgery) for evaluation of disorganized, psychotic , agitated and aggressive behavior. As per report from the [place] facility, pt was sexually preoccupied/constantly disrobing or walking around naked, responding to internal stimuli, breaking drawers and pouring water over other residents I met with patient last weekend and reviewed recent unit notes which indicate that she is showing some improvement though still remains disorganized and unpredictable. She can be calm for longer periods of time but these periods are invariably punctuated by loud and paranoid behaviors. Patient swears at staff members and still requires 1:1 sitter for safety. When I saw her this morning she appeared notably calmer than our visits together last weekend though she had no memory of them. Her focus and comprehension are better. Delusions are not prominent during today's interview and she is less easily agitated. She still seems a little paranoid and guarded but generally less hysterical and less emotionally distressed. Reports that she slept well however staff member indicates she only slept an hour. Medication adjustments are improving her mental status and control though she still remains unpredictable with poor insight and judgement. Diagnostic Results: Schizoaffective disorder Rule out delirium due to general medical condition including UTI, lithium toxicity Medication Change: Yes (clozaril titration) Medical Record Reviewed: Yes Mental Status Examination - Cognitive Function Orientation: Person Memory: Impaired Attention: Poor (some improvement) Concentration: Poor (some improvement) Association: Loose Fund of Knowledge: Poor - Mood Mood: Depressed ("I don't feel that good"), Anxious - Affect Affect: Flat, Depressed - Formal Thought Process Formal Thought Process: Delusions, Paranoia (less paranoid), Loosening of associations - Suicidal Ideation Suicidal Ideation: No - Homicidal Ideation Homicidal Ideation: No Goal/Treatment Plan - Goal/Treatment Plan Need for Continued Stay: Remain at risks for inpatient hospitalization, Severe depression anxiety, Discharge may exacerbated symptoms, Failed transitioning, Severe functional impairment Progress Toward Problem(s) and Goals/Treatment Plan: * c/w current tx and plan, c/w 1:1 * Clozaril increased to 100 mg po AM and HS on 02/19/18 with plan to increase to clozaril 100mg am and 200mg hs on 02/20/18 if patient and VS continue to tolerate * Xanax 0.5 mg BID and 1 mg HS for anxiety * Depakote ER 500 mg po AM and HS for mood and impulse control 02/11/18 02/16/18 07:00 07:00 Valproic Acid 61 43 L * Sonata 10 mg HS for insomnia * Vitals reviewed and noted below: 02/19/18 07:18 Temperature 98.6 F Pulse Rate 92 H Respiratory 20 Rate Blood Pressure 121/74 * No new weekend labs thus far Estimated Date of D/C: 02/21/18
[2018-02-20] MEDS: Albuterol-Ipratrop 3 mg / 0.5 (3 ml) UD IH SCH ×4 (03:00→19:09)
--- NOTE | 2018-02-20 09:44 | PCM.PYCHPN ---
Psychiatric Progress Note - Psychiatric Progress Note Patient seen today, length of contact: 25 min Patient Chief Complaint: "I am terrible, this bed is evil" Problems Identified/Issues Discussed: I reviewed assessment and recent notes. Patient is a 62-year- female, reported h/o Bipolar disorder, no known history of suicidal attempts, or prior psychiatric admissions who was transferred from the [facility] in [place] (where she was getting subacute care for orthopedic surgery) for evaluation of disorganized, psychotic, agitated and aggressive behavior. As per report from the [facility] facility, pt was sexually preoccupied/constantly disrobing or walking around naked, responding to internal stimuli, breaking drawers and pouring water over other residents. I met with patient last weekend and reviewed recent unit notes which indicate that she is showing some improvement though still remains disorganized and unpredictable. She can be calm for longer periods of time but these periods are invariably punctuated by loud and paranoid behaviors. Patient swears at staff members and still requires 1:1 sitter for safety. She was given Ativan prn on Wednesday afternoon for agitation. When I saw patient this weekend she appeared notably calmer than our visits together last weekend (though she had no memory of last weekend's visits). Her focus and comprehension are better. Delusions are not prominent during today's interview though she is religiously preoccupied. Patient complains about being in bed and unhappily keeps repeating that the "hospital bed is an abomination to the Lord". She is frustrated about need the help of staff help to get around. Though she is less easily agitated, she still needs redirection from these sabianism utterances. She seems a little paranoid and guarded but generally less hysterical and less emotionally distressed. Medication adjustments are improving her mental status and control though she still remains unpredictable with poor insight and judgement. Diagnostic Results: Schizoaffective disorder Rule out delirium due to general medical condition including UTI, lithium toxicity Medication Change: Yes (clozaril titration) Medical Record Reviewed: Yes Mental Status Examination - Cognitive Function Orientation: Person Memory: Impaired Attention: Poor (some improvement) Concentration: Poor (some improvement) Association: Loose Fund of Knowledge: Poor - Mood Mood: Depressed ("I don't feel that good"), Anxious - Affect Affect: Flat, Depressed, Other (labile) - Formal Thought Process Formal Thought Process: Delusions, Paranoia (less paranoid), Loosening of associations - Suicidal Ideation Suicidal Ideation: No - Homicidal Ideation Homicidal Ideation: No Goal/Treatment Plan - Goal/Treatment Plan Need for Continued Stay: Remain at risks for inpatient hospitalization, Severe depression anxiety, Discharge may exacerbated symptoms, Failed transitioning, Severe functional impairment Progress Toward Problem(s) and Goals/Treatment Plan: * c/w current tx and plan, c/w 1:1 * Clozaril increased to 100 mg po AM and HS on 02/19/18 and increased to clozaril 100mg am and 200mg hs on 02/20/18, VS continue to be stable * Xanax 0.5 mg BID and 1 mg HS for anxiety * Depakote ER 500 mg po AM and HS for mood and impulse control 02/11/18 02/16/18 07:00 07:00 Valproic Acid 61 43 L * Sonata 10 mg HS for insomnia * Appreciate f/u by Dr. Jaffe on 02/19/18 * Vitals reviewed and noted below: 02/20/18 07:16 Temperature 97.6 F Pulse Rate 85 Respiratory 18 Rate Blood Pressure 119/71 * No new weekend labs thus far Estimated Date of D/C: 02/21/18
[2018-02-20] MEDS: Divalproex 250 mg ER (ONCE DAILY formulation) PO SCH ×2 (11:01→21:50)
[2018-02-20] MEDS: Lactobacillus Acidophilus 500 MU Cap PO SCH (11:02)
[2018-02-20] MEDS: Insulin Reg-MEDIUM-Coverage SC SCH ×3 (11:04→21:29)
[2018-02-20] MEDS: Enoxaparin 30 mg Syringe SC SCH (11:05)
--- NOTE | 2018-02-20 12:55 | PN ---
DATE: SUBJECTIVE: I saw her sitting out of bed to a chair in the psychiatric floor. She is very alert and conscious, looking for a [employer] and Fani Elisa. She is on Ativan, Augmentin which I am going to stop, Bacid, Clozaril, Colace, Depakote, DuoNeb, Feosol, folic acid, insulin, Hygro[place], Lovenox, Maalox, milk of magnesia, Mucinex which I am going to stop and I am also going to stop the oxycodone, Sonata, Thorazine, Tylenol, and Xanax. PHYSICAL EXAMINATION VITAL SIGNS: She has a 97.6 temperature, 85 pulse, 119/71 blood pressure, 18 respiratory rate. HEENT: Head is atraumatic, normocephalic. HEART: Regular rate. LUNGS: Clear to auscultation. ABDOMEN: Soft. EXTREMITIES: No edema. LABORATORY DATA: Last labs on the and she did well. Last blood sugar was 108. ASSESSMENT AND PLAN: We will continue with aggressive treatment and care on Kenyatta Patterson, had upper respiratory tract infection, urinary tract infection, bipolar. Tien Jaffe DO
[2018-02-21] MEDS: Albuterol-Ipratrop 3 mg / 0.5 (3 ml) UD IH SCH ×4 (03:00→22:15)
[2018-02-21] MEDS: Divalproex 250 mg ER (ONCE DAILY formulation) PO SCH ×2 (09:36→21:30)
[2018-02-21] MEDS: Lactobacillus Acidophilus 500 MU Cap PO SCH (09:36)
[2018-02-21] MEDS: Enoxaparin 30 mg Syringe SC SCH (09:37)
[2018-02-21] MEDS: Insulin Reg-MEDIUM-Coverage SC SCH ×4 (09:38→22:37)
--- NOTE | 2018-02-21 15:27 | PCM.PYCHPN ---
Psychiatric Progress Note - Psychiatric Progress Note Patient seen today, length of contact: 25 min Patient Chief Complaint: "give me some soda" Problems Identified/Issues Discussed: this bond underwriter attempted to discuss suicide/ homicide prevention, past psychiatric h/o, current psychiatric symptoms, medical problems, risk/benefits and alternatives of medications, medications compliance, coping strategies, substance abuse h/o, relapse prevention, importance of follow up with psychiatrist and therapist, discharge plan. patient is too psychotic to understand Medical Problems: New UTI better, pt had been at the assisted living facility at [facility] since her ortho surgery 11/2017; anemia pt's PCP is Guido Feliz. Diagnostic Results: 02/02/18 06:50 02/02/18 06:50 Lab Results 02/03/18 11:51: POC Glucose (mg/dL) 97 02/03/18 09:13: POC Glucose (mg/dL) 160 H 02/02/18 23:20: Urine Osmolality 157 L, Ur Random Sodium 12 02/02/18 21:07: POC Glucose (mg/dL) 110 02/02/18 17:01: POC Glucose (mg/dL) 104 02/02/18 09:35: Phosphorus 3.4, Magnesium 2.8 H 02/02/18 09:35: 25-OH Vitamin D Total 25.4 L 02/02/18 09:35: Total Protein (PEP) 6.8, Albumin (PEP) 3.7 L, Pibrh-1-Cfxmupdha 0.4 H, Hxrsj-5-Fxqtwwvqd 0.8, Hgsm-5-Suedmtft 0.4, Ytvd-9-Uubeymjl 0.3, Gamma Globulins 1.1, Abnorm Protein Band 1 TEST NOT PERFORMED, Abnorm Protein Band 2 TEST NOT PERFORMED, Abnorm Protein Band 3 TEST NOT PERFORMED, RANDOLPH & SPEP Interp See note, Serum Immunofixation Pending, Tot [place]/Lambda Ratio Pending, [place] Light Chain Anal Pending, Lambda Light Chain Anal Pending 02/02/18 09:35: PTH Intact Whole Molec 153 H 02/02/18 06:50: RPR Nonreactive 02/02/18 06:50: TSH 3rd Generation 1.05 02/02/18 06:50: Sodium 148, Potassium 3.7, Chloride 113 H, Carbon Dioxide 23, Anion Gap 17, BUN 20, Creatinine 1.0, Est GFR ( Amer) > 60, Est GFR (Non- Af Amer) 56, Random Glucose 115 H, Fasting Glucose 115 H, Calcium 10.7 H, Total Bilirubin 0.8, AST 29, ALT 32, Alkaline Phosphatase 219 H, Total Protein 7.4, Albumin 4.1, Globulin 3.3, Albumin/Globulin Ratio 1.2, Triglycerides 112, Cholesterol 174, LDL Cholesterol Direct 95, HDL Cholesterol 52 02/02/18 06:50: WBC 12.8 H, RBC 4.43, Hgb 12.6, Hct 40.4, MCV 91.2, MCH 28.4, MCHC 31.2, RDW 15.2 H, Plt Count 272, MPV 10.6, Gran % 79.0 H, Lymph % (Auto) 9.8 L, Garvin % (Auto) 9.9 H, Eos % (Auto) 0.9 L, Baso % (Auto) 0.4, Gran # 10.09 H, Lymph # (Auto) 1.3, Garvin # (Auto) 1.3 H, Eos # (Auto) 0.1, Baso # (Auto) 0.05 02/02/18 06:50: Jeannette 1.0 02/01/18 16:01: Urine Opiates Screen Negative, Urine Methadone Screen Negative, Ur Barbiturates Screen Negative, Ur Phencyclidine Scrn Negative, Ur Amphetamines Screen Negative, U Benzodiazepines Scrn Negative, U Oth Cocaine Metabols Negative, U Cannabinoids Screen Negative 02/01/18 16:01: Urine Color Yellow, Urine Appearance Sl cloudy, Urine pH 6.0, Ur Specific [place] 1.010, Urine Protein Negative, Urine Glucose (UA) Negative, Urine Ketones Negative, Urine Blood Small H, Urine Nitrate Negative, Urine Bilirubin Negative, Urine Urobilinogen 0.2, Ur Leukocyte Esterase Large H, Urine RBC 0 - 2, Urine WBC 10 - 15, Urine Bacteria Trace 02/01/18 13:47: Jeannette 1.5 H 02/01/18 13:47: Alcohol, Quantitative < 10 02/01/18 13:47: Salicylates < 1 L, Acetaminophen < 10.0 L 02/01/18 13:47: Sodium 144, Potassium 3.5 L, Chloride 109 H, Carbon Dioxide 25, Anion Gap 13, BUN 19, Creatinine 1.2, Est GFR ( Amer) 55, Est GFR (Non- Af Amer) 46, Random Glucose 112 H, Calcium 10.8 H, Total Bilirubin 0.5, AST 31, ALT 38, Alkaline Phosphatase 189 H, Total Protein 7.0, Albumin 3.9, Globulin 3.1 , Albumin/Globulin Ratio 1.3 02/01/18 13:47: WBC 15.0 H, RBC 4.39, Hgb 12.8, Hct 39.7, MCV 90.4, MCH 29.2, MCHC 32.2, RDW 15.0 H, Plt Count 242, MPV 10.0, Gran % 81.7 H, Lymph % (Auto) 8.3 L, Garvin % (Auto) 9.5 H, Eos % (Auto) 0.3 L, Baso % (Auto) 0.2, Gran # 12.24 H, Lymph # (Auto) 1.2, Garvin # (Auto) 1.4 H, Eos # (Auto) 0.0, Baso # (Auto) 0.03 Vital Signs Temp Pulse Resp BP Pulse Ox 02/03/18 07:34 97.6 F 87 20 130/78 02/02/18 16:00 106 H 121/71 02/02/18 07:33 98.0 F 57 L 20 146/84 02/01/18 22:00 20 02/01/18 15:23 104 H 18 151/87 H 98 02/01/18 13:14 98.3 F 98 H 18 138/78 99 Laboratory Results - last 24 hr 02/02/18 02/03/18 02/04/18 09:35 21:17 07:15 WBC 8.5 D RBC 4.33 Hgb 12.6 Hct 39.8 MCV 91.9 MCH 29.1 MCHC 31.7 RDW 15.3 H Plt Count 278 MPV 10.2 Sodium Potassium Chloride Carbon Dioxide Anion Gap BUN Creatinine Est GFR ( Amer) Est GFR (Non-Af Amer) POC Glucose (mg/dL) 154 H Random Glucose Calcium Total Bilirubin AST ALT Alkaline Phosphatase Total Protein Albumin Globulin Albumin/Globulin Ratio Serum Immunofixation Not detected Tot [place]/Lambda Ratio 2.28 [place] Light Chain Anal 239 Lambda Light Chain Anal 105 02/04/18 02/04/18 02/04/18 07:15 07:37 12:08 WBC RBC Hgb Hct MCV MCH MCHC RDW Plt Count MPV Sodium 151 H Potassium 4.3 Chloride 114 H Carbon Dioxide 27 Anion Gap 14 BUN 16 Creatinine 0.8 Est GFR ( Amer) > 60 Est GFR (Non-Af Amer) > 60 POC Glucose (mg/dL) 102 95 Random Glucose 112 H Calcium 10.6 H Total Bilirubin 0.4 AST 24 ALT 30 Alkaline Phosphatase 194 H Total Protein 7.0 Albumin 3.7 Globulin 3.3 Albumin/Globulin Ratio 1.1 Serum Immunofixation Tot [place]/Lambda Ratio [place] Light Chain Anal Lambda Light Chain Anal 02/04/18 16:11 WBC RBC Hgb Hct MCV MCH MCHC RDW Plt Count MPV Sodium Potassium Chloride Carbon Dioxide Anion Gap BUN Creatinine Est GFR ( Amer) Est GFR (Non-Af Amer) POC Glucose (mg/dL) 88 Random Glucose Calcium Total Bilirubin AST ALT Alkaline Phosphatase Total Protein Albumin Globulin Albumin/Globulin Ratio Serum Immunofixation Tot [place]/Lambda Ratio [place] Light Chain Anal Lambda Light Chain Anal Temp Pulse Resp BP Pulse Ox 97.9 F 80 20 134/78 98 02/04/18 07:00 02/04/18 07:00 02/04/18 07:00 02/04/18 07:00 02/01/18 15:23 Abnormal Lab Results 02/05/18 02/05/18 02/06/18 16:26 21:13 07:00 WBC 6.5 D RBC 4.29 Hgb 12.5 Hct 39.3 MCV 91.6 MCH 29.1 MCHC 31.8 RDW 15.1 H Plt Count 260 MPV 10.6 Sodium Potassium Chloride Carbon Dioxide Anion Gap BUN Creatinine Est GFR ( Amer) Est GFR (Non-Af Amer) POC Glucose (mg/dL) 98 99 Random Glucose Calcium Total Bilirubin AST ALT Alkaline Phosphatase Total Protein Albumin Globulin Albumin/Globulin Ratio 02/06/18 02/06/18 02/06/18 07:00 07:40 11:06 WBC RBC Hgb Hct MCV MCH MCHC RDW Plt Count MPV Sodium 145 Potassium 4.1 Chloride 109 H Carbon Dioxide 30 Anion Gap 10 BUN 16 Creatinine 0.8 Est GFR ( Amer) > 60 Est GFR (Non-Af Amer) > 60 POC Glucose (mg/dL) 85 93 Random Glucose 100 Calcium 10.0 Total Bilirubin 0.4 AST 32 ALT 45 Alkaline Phosphatase 203 H Total Protein 6.6 Albumin 3.5 Globulin 3.1 Albumin/Globulin Ratio 1.1 Temp Pulse Resp BP Pulse Ox 97.3 F L 94 H 20 145/84 98 02/06/18 07:53 02/06/18 07:53 02/06/18 07:53 02/06/18 07:53 02/01/18 15:23 Laboratory Results - last 24 hr 02/06/18 02/07/18 02/07/18 22:02 06:15 06:15 WBC 5.7 RBC 4.32 Hgb 12.5 Hct 39.8 MCV 92.1 MCH 28.9 MCHC 31.4 RDW 15.2 H Plt Count 237 MPV 10.4 Sodium 144 Potassium 4.6 Chloride 110 H Carbon Dioxide 27 Anion Gap 12 BUN 15 Creatinine 0.8 Est GFR ( Amer) > 60 Est GFR (Non-Af Amer) > 60 POC Glucose (mg/dL) 89 Random Glucose 95 Calcium 9.8 Total Bilirubin 0.4 AST 30 ALT 53 Alkaline Phosphatase 195 H Total Protein 6.7 Albumin 3.6 Globulin 3.1 Albumin/Globulin Ratio 1.2 02/07/18 12:59 WBC RBC Hgb Hct MCV MCH MCHC RDW Plt Count MPV Sodium Potassium Chloride Carbon Dioxide Anion Gap BUN Creatinine Est GFR ( Amer) Est GFR (Non-Af Amer) POC Glucose (mg/dL) 158 H Random Glucose Calcium Total Bilirubin AST ALT Alkaline Phosphatase Total Protein Albumin Globulin Albumin/Globulin Ratio Temp Pulse Resp BP Pulse Ox 98.3 F 86 20 77/47 L 98 02/07/18 07:37 02/07/18 07:37 02/07/18 07:37 02/07/18 07:37 02/01/18 15:23 Laboratory Results - last 24 hr 02/09/18 02/09/18 02/10/18 16:30 20:56 08:26 WBC RBC Hgb Hct MCV MCH MCHC RDW Plt Count MPV Gran % Lymph % (Auto) Garvin % (Auto) Eos % (Auto) Baso % (Auto) Gran # Lymph # (Auto) Garvin # (Auto) Eos # (Auto) Baso # (Auto) POC Glucose (mg/dL) 120 H 132 H 81 02/10/18 02/10/18 11:01 12:32 WBC 7.0 D RBC 4.25 Hgb 12.4 Hct 39.5 MCV 92.9 MCH 29.2 MCHC 31.4 RDW 15.1 H Plt Count 241 MPV 10.6 Gran % 71.6 H Lymph % (Auto) 18.7 L Garvin % (Auto) 8.3 H Eos % (Auto) 1.1 L Baso % (Auto) 0.3 Gran # 4.99 Lymph # (Auto) 1.3 Garvin # (Auto) 0.6 Eos # (Auto) 0.1 Baso # (Auto) 0.02 POC Glucose (mg/dL) 110 no signs of arganulocytosis PT was registered to [facility] REMS CXR WNL 02/14/18 Laboratory Results - last 72 hr 02/12/18 02/12/18 02/13/18 15:39 21:04 07:38 WBC RBC Hgb Hct MCV MCH MCHC RDW Plt Count MPV Sodium Potassium Chloride Carbon Dioxide Anion Gap BUN Creatinine Est GFR ( Amer) Est GFR (Non-Af Amer) POC Glucose (mg/dL) 120 H 108 238 H Random Glucose Hemoglobin A1c Calcium Total Bilirubin AST ALT Alkaline Phosphatase NT-Pro-B Natriuret Pep Total Protein Albumin Globulin Albumin/Globulin Ratio Procalcitonin Urine Color Urine Appearance Urine pH Ur Specific [place] Urine Protein Urine Glucose (UA) Urine Ketones Urine Blood Urine Nitrate Urine Bilirubin Urine Urobilinogen Ur Leukocyte Esterase Urine RBC Urine WBC Ur Epithelial Cells Urine Bacteria Urine Osmolality 02/13/18 02/13/18 02/13/18 11:37 16:01 21:21 WBC RBC Hgb Hct MCV MCH MCHC RDW Plt Count MPV Sodium Potassium Chloride Carbon Dioxide Anion Gap BUN Creatinine Est GFR ( Amer) Est GFR (Non-Af Amer) POC Glucose (mg/dL) 110 118 H 113 H Random Glucose Hemoglobin A1c Calcium Total Bilirubin AST ALT Alkaline Phosphatase NT-Pro-B Natriuret Pep Total Protein Albumin Globulin Albumin/Globulin Ratio Procalcitonin Urine Color Urine Appearance Urine pH Ur Specific [place] Urine Protein Urine Glucose (UA) Urine Ketones Urine Blood Urine Nitrate Urine Bilirubin Urine Urobilinogen Ur Leukocyte Esterase Urine RBC Urine WBC Ur Epithelial Cells Urine Bacteria Urine Osmolality 02/14/18 02/14/18 02/14/18 07:30 07:30 07:30 WBC 4.7 RBC 4.55 Hgb 13.2 Hct 41.8 MCV 91.9 MCH 29.0 MCHC 31.6 RDW 14.6 H Plt Count 215 MPV 10.5 Sodium 152 H Potassium 4.6 Chloride 113 H Carbon Dioxide 30 Anion Gap 15 BUN 14 Creatinine 0.8 Est GFR ( Amer) > 60 Est GFR (Non-Af Amer) > 60 POC Glucose (mg/dL) Random Glucose 96 Hemoglobin A1c 5.4 Calcium 10.4 Total Bilirubin 0.2 AST 24 ALT 35 Alkaline Phosphatase 175 H NT-Pro-B Natriuret Pep Total Protein 7.0 Albumin 3.5 Globulin 3.4 Albumin/Globulin Ratio 1.0 L Procalcitonin Urine Color Urine Appearance Urine pH Ur Specific [place] Urine Protein Urine Glucose (UA) Urine Ketones Urine Blood Urine Nitrate Urine Bilirubin Urine Urobilinogen Ur Leukocyte Esterase Urine RBC Urine WBC Ur Epithelial Cells Urine Bacteria Urine Osmolality 02/14/18 02/14/18 02/14/18 07:30 07:31 11:28 WBC RBC Hgb Hct MCV MCH MCHC RDW Plt Count MPV Sodium Potassium Chloride Carbon Dioxide Anion Gap BUN Creatinine Est GFR ( Amer) Est GFR (Non-Af Amer) POC Glucose (mg/dL) 97 138 H Random Glucose Hemoglobin A1c Calcium Total Bilirubin AST ALT Alkaline Phosphatase NT-Pro-B Natriuret Pep 44.3 Total Protein Albumin Globulin Albumin/Globulin Ratio Procalcitonin Urine Color Urine Appearance Urine pH Ur Specific [place] Urine Protein Urine Glucose (UA) Urine Ketones Urine Blood Urine Nitrate Urine Bilirubin Urine Urobilinogen Ur Leukocyte Esterase Urine RBC Urine WBC Ur Epithelial Cells Urine Bacteria Urine Osmolality 02/14/18 02/14/18 02/14/18 16:31 18:52 18:52 WBC RBC Hgb Hct MCV MCH MCHC RDW Plt Count MPV Sodium Potassium Chloride Carbon Dioxide Anion Gap BUN Creatinine Est GFR ( Amer) Est GFR (Non-Af Amer) POC Glucose (mg/dL) 163 H Random Glucose Hemoglobin A1c Calcium Total Bilirubin AST ALT Alkaline Phosphatase NT-Pro-B Natriuret Pep Total Protein Albumin Globulin Albumin/Globulin Ratio Procalcitonin Urine Color Yellow Urine Appearance Turbid Urine pH 6.5 Ur Specific [place] <= 1.005 Urine Protein Negative Urine Glucose (UA) Negative Urine Ketones Negative Urine Blood Moderate H Urine Nitrate Negative Urine Bilirubin Negative Urine Urobilinogen 0.2 Ur Leukocyte Esterase Trace H Urine RBC 1 - 3 Urine WBC 0 - 2 Ur Epithelial Cells 4 - 5 Urine Bacteria Few Urine Osmolality 217 L 02/14/18 02/15/18 02/15/18 21:04 05:50 05:50 WBC RBC Hgb Hct MCV MCH MCHC RDW Plt Count MPV Sodium 145 Potassium 4.0 Chloride 105 Carbon Dioxide 28 Anion Gap 16 BUN 18 Creatinine 0.9 Est GFR ( Amer) > 60 Est GFR (Non-Af Amer) > 60 POC Glucose (mg/dL) 110 Random Glucose 108 Hemoglobin A1c Calcium 10.2 Total Bilirubin AST ALT Alkaline Phosphatase NT-Pro-B Natriuret Pep Total Protein Albumin Globulin Albumin/Globulin Ratio Procalcitonin < 0.05 L Urine Color Urine Appearance Urine pH Ur Specific [place] Urine Protein Urine Glucose (UA) Urine Ketones Urine Blood Urine Nitrate Urine Bilirubin Urine Urobilinogen Ur Leukocyte Esterase Urine RBC Urine WBC Ur Epithelial Cells Urine Bacteria Urine Osmolality 02/15/18 02/15/18 07:22 11:30 WBC RBC Hgb Hct MCV MCH MCHC RDW Plt Count MPV Sodium Potassium Chloride Carbon Dioxide Anion Gap BUN Creatinine Est GFR ( Amer) Est GFR (Non-Af Amer) POC Glucose (mg/dL) 112 H 78 Random Glucose Hemoglobin A1c Calcium Total Bilirubin AST ALT Alkaline Phosphatase NT-Pro-B Natriuret Pep Total Protein Albumin Globulin Albumin/Globulin Ratio Procalcitonin Urine Color Urine Appearance Urine pH Ur Specific [place] Urine Protein Urine Glucose (UA) Urine Ketones Urine Blood Urine Nitrate Urine Bilirubin Urine Urobilinogen Ur Leukocyte Esterase Urine RBC Urine WBC Ur Epithelial Cells Urine Bacteria Urine Osmolality Laboratory Results - last 24 hr 02/16/18 02/16/18 02/17/18 16:38 21:54 06:45 WBC 6.0 RBC 4.48 Hgb 12.8 Hct 39.8 MCV 88.8 MCH 28.6 MCHC 32.2 RDW 14.3 Plt Count 259 MPV 11.0 Gran % 54.2 Lymph % (Auto) 27.2 [place]vin % (Auto) 15.2 H Eos % (Auto) 3.1 Baso % (Auto) 0.3 Gran # 3.27 Lymph # (Auto) 1.6 Garvin # (Auto) 0.9 H Eos # (Auto) 0.2 Baso # (Auto) 0.02 POC Glucose (mg/dL) 128 H 127 H 02/17/18 02/17/18 07:22 11:39 WBC RBC Hgb Hct MCV MCH MCHC RDW Plt Count MPV Gran % Lymph % (Auto) [place] % (Auto) Eos % (Auto) Baso % (Auto) Gran # Lymph # (Auto) Garvin # (Auto) Eos # (Auto) Baso # (Auto) POC Glucose (mg/dL) 107 116 H no signs of agranulocytosis, labs submitted to clozaril rems 02/17/18 DSM 5 Symptoms Update: shortly patient is 62-year- female, reported h/o Bipolar disorder, not known h/ o suicidal attempts, not known h/o psychiatric admissions, pt was transferred from the [facility] in [place] where she was getting subacute care for orthopedic surgery, pt was transferred from the facility for evaluation of disorganized, psychotic, agitated and aggressive behavior. [facility], pt was sexually preoccupied/constantly disrobing or walking around naked, pt was also responding to internal stimuli, pt also broke drawers in facility, was pouring water over other residents, previously pt was in assisted living, pt was able to sign consent for treatment. as per report from the nursing staff patient Required Ativan when necessary for agitation on Wednesday. Patient still on one to one observation. Patient still is irritable, angry, but able to stay focus there is some mild improvement with patient presentation, patient still is religiously preoccupied, "hospital bed is an abomination to the Lord". Though she is less easily agitated, she still needs redirection from these jew utterances. She seems a little paranoid and guarded but generally less hysterical and less emotionally distressed. Medication adjustments are improving her mental status and control though she still remains unpredictable with poor insight and judgement. as per PCP pt ate 100% of her meal. pt was less abusive towards 1:1 sitter, at times cursing. pt has no side effects of meds, AIMS 0, no EPS, pt tolerates clozaril well. Impression: Schizoaffective disorder delirium better Medication Change: Yes (clozaril titration) Medical Record Reviewed: Yes Mental Status Examination - Cognitive Function Orientation: Person Memory: Impaired Attention: Poor (some improvement) Concentration: Poor (some improvement) Association: Loose Fund of Knowledge: Poor - Mood Mood: Depressed ("I don't feel that good"), Anxious - Affect Affect: Flat, Depressed, Other (labile) - Formal Thought Process Formal Thought Process: Delusions, Paranoia (less paranoid), Loosening of associations - Suicidal Ideation Suicidal Ideation: No - Homicidal Ideation Homicidal Ideation: No Goal/Treatment Plan - Goal/Treatment Plan Need for Continued Stay: Remain at risks for inpatient hospitalization, Severe depression anxiety, Discharge may exacerbated symptoms, Failed transitioning, Severe functional impairment Progress Toward Problem(s) and Goals/Treatment Plan: milieu/structure/supportive therapy seroquel discontinued Clozaril on titration schedule clozaril 100mg am and 200mg hs Pt was registered on Clozaril REMS on weekly monitoring blood work 02/17/18 within normal limits thorazine discontinue 02/17/2018 depakote 250mg po bid and hs for mood stabilization depakote level was 43 02/16/2018 Xanax1 mg 3 times a day scheduled sonata as needed nephrology and medical team involved SW consultation for discharge plan and social issues psychiatrist was contacted, awaiting for call back Family involvement Follow up on labs Will monitor closely Pt was educated about risk/benefits and alternatives of medications, coping strategies (safety plan, suicide prevention), relapse prevention, importance of follow up with psychiatrist and therapist, stay away from drugs/alcohol/smoking patient still required to be on one-to-one Estimated Date of D/C: 02/23/18
--- NOTE | 2018-02-21 16:17 | PN ---
DATE: 02/21/2018 SUBJECTIVE: I saw her sitting up in chair in the lunch room eating her breakfast very well. She is asking for Fani Elisa. She is on Ativan, Bacid, Clozaril, Colace, Depakote, DuoNeb, Feosol, folic acid, Hygro[place], Lovenox, Maalox, milk of magnesia, Sonata, Thorazine, Tylenol and Xanax. PHYSICAL EXAMINATION VITAL SIGNS: She has 97.6 temp, 85 pulse, 119/71 blood pressure, 18 respiratory rate. HEART: Regular rate. LUNGS: Decreased breath sounds with rales. She is asking for Fani Elisa. No acute distress, in good spirits. I think she is improving to keep up with her Fani Elisa orders. LABORATORY DATA: She had on the good CBC. Last chemistry was on the and she did well. Last blood sugar was 145. The urinary tract infection with large trace. She is being seen by Psychiatry. Continue medications. We will follow. She had upper respiratory infection, urinary tract infection, bipolar. Tien Jaffe DO MTDD
[2018-02-22] MEDS: Albuterol-Ipratrop 3 mg / 0.5 (3 ml) UD IH SCH ×4 (03:10→20:59)
[2018-02-22 06:39] VITALS: RESP 20
[2018-02-22] MEDS: Insulin Reg-MEDIUM-Coverage SC SCH ×4 (08:10→22:57)
[2018-02-22] MEDS: Lactobacillus Acidophilus 500 MU Cap PO SCH (09:26)
[2018-02-22] MEDS: Divalproex 250 mg ER (ONCE DAILY formulation) PO SCH ×2 (09:27→21:24)
[2018-02-22] MEDS: Enoxaparin 30 mg Syringe SC SCH (09:28)
--- NOTE | 2018-02-22 13:20 | PCM.PYCHPN ---
Psychiatric Progress Note - Psychiatric Progress Note Patient seen today, length of contact: 30min Patient Chief Complaint: "What make you think that I committed a crime?" Problems Identified/Issues Discussed: this public relations writer attempted to discuss suicide/ homicide prevention, past psychiatric h/o, current psychiatric symptoms, medical problems, risk/benefits and alternatives of medications, medications compliance, coping strategies, substance abuse h/o, relapse prevention, importance of follow up with psychiatrist and therapist, discharge plan. patient is more receptive. Medical Problems: New UTI better, pt had been at the assisted living facility at [facility] since her ortho surgery 11/2017; anemia pt's PCP is Guido Feliz. Diagnostic Results: 02/02/18 06:50 02/02/18 06:50 Lab Results 02/03/18 11:51: POC Glucose (mg/dL) 97 02/03/18 09:13: POC Glucose (mg/dL) 160 H 02/02/18 23:20: Urine Osmolality 157 L, Ur Random Sodium 12 02/02/18 21:07: POC Glucose (mg/dL) 110 02/02/18 17:01: POC Glucose (mg/dL) 104 02/02/18 09:35: Phosphorus 3.4, Magnesium 2.8 H 02/02/18 09:35: 25-OH Vitamin D Total 25.4 L 02/02/18 09:35: Total Protein (PEP) 6.8, Albumin (PEP) 3.7 L, Sthyf-9-Gkvixjhzf 0.4 H, Uhmmr-5-Jdcanarkl 0.8, Scdj-9-Spksirkt 0.4, Nwgi-1-Dprxgxyz 0.3, Gamma Globulins 1.1, Abnorm Protein Band 1 TEST NOT PERFORMED, Abnorm Protein Band 2 TEST NOT PERFORMED, Abnorm Protein Band 3 TEST NOT PERFORMED, RANDOLPH & SPEP Interp See note, Serum Immunofixation Pending, Tot [place]/Lambda Ratio Pending, [place] Light Chain Anal Pending, Lambda Light Chain Anal Pending 02/02/18 09:35: PTH Intact Whole Molec 153 H 02/02/18 06:50: RPR Nonreactive 02/02/18 06:50: TSH 3rd Generation 1.05 02/02/18 06:50: Sodium 148, Potassium 3.7, Chloride 113 H, Carbon Dioxide 23, Anion Gap 17, BUN 20, Creatinine 1.0, Est GFR ( Amer) > 60, Est GFR (Non- Af Amer) 56, Random Glucose 115 H, Fasting Glucose 115 H, Calcium 10.7 H, Total Bilirubin 0.8, AST 29, ALT 32, Alkaline Phosphatase 219 H, Total Protein 7.4, Albumin 4.1, Globulin 3.3, Albumin/Globulin Ratio 1.2, Triglycerides 112, Cholesterol 174, LDL Cholesterol Direct 95, HDL Cholesterol 52 02/02/18 06:50: WBC 12.8 H, RBC 4.43, Hgb 12.6, Hct 40.4, MCV 91.2, MCH 28.4, MCHC 31.2, RDW 15.2 H, Plt Count 272, MPV 10.6, Gran % 79.0 H, Lymph % (Auto) 9.8 L, [place] % (Auto) 9.9 H, Eos % (Auto) 0.9 L, Baso % (Auto) 0.4, Gran # 10.09 H, Lymph # (Auto) 1.3, [place] # (Auto) 1.3 H, Eos # (Auto) 0.1, Baso # (Auto) 0.05 02/02/18 06:50: [place] 1.0 02/01/18 16:01: Urine Opiates Screen Negative, Urine Methadone Screen Negative, Ur Barbiturates Screen Negative, Ur Phencyclidine Scrn Negative, Ur Amphetamines Screen Negative, U Benzodiazepines Scrn Negative, U Oth Cocaine Metabols Negative, U Cannabinoids Screen Negative 02/01/18 16:01: Urine Color Yellow, Urine Appearance Sl cloudy, Urine pH 6.0, Ur Specific [place] 1.010, Urine Protein Negative, Urine Glucose (UA) Negative, Urine Ketones Negative, Urine Blood Small H, Urine Nitrate Negative, Urine Bilirubin Negative, Urine Urobilinogen 0.2, Ur Leukocyte Esterase Large H, Urine RBC 0 - 2, Urine WBC 10 - 15, Urine Bacteria Trace 02/01/18 13:47: [place] 1.5 H 02/01/18 13:47: Alcohol, Quantitative < 10 02/01/18 13:47: Salicylates < 1 L, Acetaminophen < 10.0 L 02/01/18 13:47: Sodium 144, Potassium 3.5 L, Chloride 109 H, Carbon Dioxide 25, Anion Gap 13, BUN 19, Creatinine 1.2, Est GFR ( Amer) 55, Est GFR (Non- Af Amer) 46, Random Glucose 112 H, Calcium 10.8 H, Total Bilirubin 0.5, AST 31, ALT 38, Alkaline Phosphatase 189 H, Total Protein 7.0, Albumin 3.9, Globulin 3.1 , Albumin/Globulin Ratio 1.3 02/01/18 13:47: WBC 15.0 H, RBC 4.39, Hgb 12.8, Hct 39.7, MCV 90.4, MCH 29.2, MCHC 32.2, RDW 15.0 H, Plt Count 242, MPV 10.0, Gran % 81.7 H, Lymph % (Auto) 8.3 L, [place] % (Auto) 9.5 H, Eos % (Auto) 0.3 L, Baso % (Auto) 0.2, Gran # 12.24 H, Lymph # (Auto) 1.2, [place] # (Auto) 1.4 H, Eos # (Auto) 0.0, Baso # (Auto) 0.03 Vital Signs Temp Pulse Resp BP Pulse Ox 02/03/18 07:34 97.6 F 87 20 130/78 02/02/18 16:00 106 H 121/71 02/02/18 07:33 98.0 F 57 L 20 146/84 02/01/18 22:00 20 02/01/18 15:23 104 H 18 151/87 H 98 02/01/18 13:14 98.3 F 98 H 18 138/78 99 Laboratory Results - last 24 hr 02/02/18 02/03/18 02/04/18 09:35 21:17 07:15 WBC 8.5 D RBC 4.33 Hgb 12.6 Hct 39.8 MCV 91.9 MCH 29.1 MCHC 31.7 RDW 15.3 H Plt Count 278 MPV 10.2 Sodium Potassium Chloride Carbon Dioxide Anion Gap BUN Creatinine Est GFR ( Amer) Est GFR (Non-Af Amer) POC Glucose (mg/dL) 154 H Random Glucose Calcium Total Bilirubin AST ALT Alkaline Phosphatase Total Protein Albumin Globulin Albumin/Globulin Ratio Serum Immunofixation Not detected Tot [place]/Lambda Ratio 2.28 [place] Light Chain Anal 239 Lambda Light Chain Anal 105 02/04/18 02/04/18 02/04/18 07:15 07:37 12:08 WBC RBC Hgb Hct MCV MCH MCHC RDW Plt Count MPV Sodium 151 H Potassium 4.3 Chloride 114 H Carbon Dioxide 27 Anion Gap 14 BUN 16 Creatinine 0.8 Est GFR ( Amer) > 60 Est GFR (Non-Af Amer) > 60 POC Glucose (mg/dL) 102 95 Random Glucose 112 H Calcium 10.6 H Total Bilirubin 0.4 AST 24 ALT 30 Alkaline Phosphatase 194 H Total Protein 7.0 Albumin 3.7 Globulin 3.3 Albumin/Globulin Ratio 1.1 Serum Immunofixation Tot [place]/Lambda Ratio [place] Light Chain Anal Lambda Light Chain Anal 02/04/18 16:11 WBC RBC Hgb Hct MCV MCH MCHC RDW Plt Count MPV Sodium Potassium Chloride Carbon Dioxide Anion Gap BUN Creatinine Est GFR ( Amer) Est GFR (Non-Af Amer) POC Glucose (mg/dL) 88 Random Glucose Calcium Total Bilirubin AST ALT Alkaline Phosphatase Total Protein Albumin Globulin Albumin/Globulin Ratio Serum Immunofixation Tot [place]/Lambda Ratio [place] Light Chain Anal Lambda Light Chain Anal Temp Pulse Resp BP Pulse Ox 97.9 F 80 20 134/78 98 02/04/18 07:00 02/04/18 07:00 02/04/18 07:00 02/04/18 07:00 02/01/18 15:23 Abnormal Lab Results 02/05/18 02/05/18 02/06/18 16:26 21:13 07:00 WBC 6.5 D RBC 4.29 Hgb 12.5 Hct 39.3 MCV 91.6 MCH 29.1 MCHC 31.8 RDW 15.1 H Plt Count 260 MPV 10.6 Sodium Potassium Chloride Carbon Dioxide Anion Gap BUN Creatinine Est GFR ( Amer) Est GFR (Non-Af Amer) POC Glucose (mg/dL) 98 99 Random Glucose Calcium Total Bilirubin AST ALT Alkaline Phosphatase Total Protein Albumin Globulin Albumin/Globulin Ratio 02/06/18 02/06/18 02/06/18 07:00 07:40 11:06 WBC RBC Hgb Hct MCV MCH MCHC RDW Plt Count MPV Sodium 145 Potassium 4.1 Chloride 109 H Carbon Dioxide 30 Anion Gap 10 BUN 16 Creatinine 0.8 Est GFR ( Amer) > 60 Est GFR (Non-Af Amer) > 60 POC Glucose (mg/dL) 85 93 Random Glucose 100 Calcium 10.0 Total Bilirubin 0.4 AST 32 ALT 45 Alkaline Phosphatase 203 H Total Protein 6.6 Albumin 3.5 Globulin 3.1 Albumin/Globulin Ratio 1.1 Temp Pulse Resp BP Pulse Ox 97.3 F L 94 H 20 145/84 98 02/06/18 07:53 02/06/18 07:53 02/06/18 07:53 02/06/18 07:53 02/01/18 15:23 Laboratory Results - last 24 hr 02/06/18 02/07/18 02/07/18 22:02 06:15 06:15 WBC 5.7 RBC 4.32 Hgb 12.5 Hct 39.8 MCV 92.1 MCH 28.9 MCHC 31.4 RDW 15.2 H Plt Count 237 MPV 10.4 Sodium 144 Potassium 4.6 Chloride 110 H Carbon Dioxide 27 Anion Gap 12 BUN 15 Creatinine 0.8 Est GFR ( Amer) > 60 Est GFR (Non-Af Amer) > 60 POC Glucose (mg/dL) 89 Random Glucose 95 Calcium 9.8 Total Bilirubin 0.4 AST 30 ALT 53 Alkaline Phosphatase 195 H Total Protein 6.7 Albumin 3.6 Globulin 3.1 Albumin/Globulin Ratio 1.2 02/07/18 12:59 WBC RBC Hgb Hct MCV MCH MCHC RDW Plt Count MPV Sodium Potassium Chloride Carbon Dioxide Anion Gap BUN Creatinine Est GFR ( Amer) Est GFR (Non-Af Amer) POC Glucose (mg/dL) 158 H Random Glucose Calcium Total Bilirubin AST ALT Alkaline Phosphatase Total Protein Albumin Globulin Albumin/Globulin Ratio Temp Pulse Resp BP Pulse Ox 98.3 F 86 20 77/47 L 98 02/07/18 07:37 02/07/18 07:37 02/07/18 07:37 02/07/18 07:37 02/01/18 15:23 Laboratory Results - last 24 hr 02/09/18 02/09/18 02/10/18 16:30 20:56 08:26 WBC RBC Hgb Hct MCV MCH MCHC RDW Plt Count MPV Gran % Lymph % (Auto) [place] % (Auto) Eos % (Auto) Baso % (Auto) Gran # Lymph # (Auto) [place] # (Auto) Eos # (Auto) Baso # (Auto) POC Glucose (mg/dL) 120 H 132 H 81 02/10/18 02/10/18 11:01 12:32 WBC 7.0 D RBC 4.25 Hgb 12.4 Hct 39.5 MCV 92.9 MCH 29.2 MCHC 31.4 RDW 15.1 H Plt Count 241 MPV 10.6 Gran % 71.6 H Lymph % (Auto) 18.7 L [place] % (Auto) 8.3 H Eos % (Auto) 1.1 L Baso % (Auto) 0.3 Gran # 4.99 Lymph # (Auto) 1.3 [place] # (Auto) 0.6 Eos # (Auto) 0.1 Baso # (Auto) 0.02 POC Glucose (mg/dL) 110 no signs of arganulocytosis PT was registered to [facility] CXR WNL 02/14/18 Laboratory Results - last 72 hr 02/12/18 02/12/18 02/13/18 15:39 21:04 07:38 WBC RBC Hgb Hct MCV MCH MCHC RDW Plt Count MPV Sodium Potassium Chloride Carbon Dioxide Anion Gap BUN Creatinine Est GFR ( Amer) Est GFR (Non-Af Amer) POC Glucose (mg/dL) 120 H 108 238 H Random Glucose Hemoglobin A1c Calcium Total Bilirubin AST ALT Alkaline Phosphatase NT-Pro-B Natriuret Pep Total Protein Albumin Globulin Albumin/Globulin Ratio Procalcitonin Urine Color Urine Appearance Urine pH Ur Specific [place] Urine Protein Urine Glucose (UA) Urine Ketones Urine Blood Urine Nitrate Urine Bilirubin Urine Urobilinogen Ur Leukocyte Esterase Urine RBC Urine WBC Ur Epithelial Cells Urine Bacteria Urine Osmolality 02/13/18 02/13/18 02/13/18 11:37 16:01 21:21 WBC RBC Hgb Hct MCV MCH MCHC RDW Plt Count MPV Sodium Potassium Chloride Carbon Dioxide Anion Gap BUN Creatinine Est GFR ( Amer) Est GFR (Non-Af Amer) POC Glucose (mg/dL) 110 118 H 113 H Random Glucose Hemoglobin A1c Calcium Total Bilirubin AST ALT Alkaline Phosphatase NT-Pro-B Natriuret Pep Total Protein Albumin Globulin Albumin/Globulin Ratio Procalcitonin Urine Color Urine Appearance Urine pH Ur Specific [place] Urine Protein Urine Glucose (UA) Urine Ketones Urine Blood Urine Nitrate Urine Bilirubin Urine Urobilinogen Ur Leukocyte Esterase Urine RBC Urine WBC Ur Epithelial Cells Urine Bacteria Urine Osmolality 02/14/18 02/14/18 02/14/18 07:30 07:30 07:30 WBC 4.7 RBC 4.55 Hgb 13.2 Hct 41.8 MCV 91.9 MCH 29.0 MCHC 31.6 RDW 14.6 H Plt Count 215 MPV 10.5 Sodium 152 H Potassium 4.6 Chloride 113 H Carbon Dioxide 30 Anion Gap 15 BUN 14 Creatinine 0.8 Est GFR ( Amer) > 60 Est GFR (Non-Af Amer) > 60 POC Glucose (mg/dL) Random Glucose 96 Hemoglobin A1c 5.4 Calcium 10.4 Total Bilirubin 0.2 AST 24 ALT 35 Alkaline Phosphatase 175 H NT-Pro-B Natriuret Pep Total Protein 7.0 Albumin 3.5 Globulin 3.4 Albumin/Globulin Ratio 1.0 L Procalcitonin Urine Color Urine Appearance Urine pH Ur Specific [place] Urine Protein Urine Glucose (UA) Urine Ketones Urine Blood Urine Nitrate Urine Bilirubin Urine Urobilinogen Ur Leukocyte Esterase Urine RBC Urine WBC Ur Epithelial Cells Urine Bacteria Urine Osmolality 02/14/18 02/14/18 02/14/18 07:30 07:31 11:28 WBC RBC Hgb Hct MCV MCH MCHC RDW Plt Count MPV Sodium Potassium Chloride Carbon Dioxide Anion Gap BUN Creatinine Est GFR ( Amer) Est GFR (Non-Af Amer) POC Glucose (mg/dL) 97 138 H Random Glucose Hemoglobin A1c Calcium Total Bilirubin AST ALT Alkaline Phosphatase NT-Pro-B Natriuret Pep 44.3 Total Protein Albumin Globulin Albumin/Globulin Ratio Procalcitonin Urine Color Urine Appearance Urine pH Ur Specific [place] Urine Protein Urine Glucose (UA) Urine Ketones Urine Blood Urine Nitrate Urine Bilirubin Urine Urobilinogen Ur Leukocyte Esterase Urine RBC Urine WBC Ur Epithelial Cells Urine Bacteria Urine Osmolality 02/14/18 02/14/18 02/14/18 16:31 18:52 18:52 WBC RBC Hgb Hct MCV MCH MCHC RDW Plt Count MPV Sodium Potassium Chloride Carbon Dioxide Anion Gap BUN Creatinine Est GFR ( Amer) Est GFR (Non-Af Amer) POC Glucose (mg/dL) 163 H Random Glucose Hemoglobin A1c Calcium Total Bilirubin AST ALT Alkaline Phosphatase NT-Pro-B Natriuret Pep Total Protein Albumin Globulin Albumin/Globulin Ratio Procalcitonin Urine Color Yellow Urine Appearance Turbid Urine pH 6.5 Ur Specific [place] <= 1.005 Urine Protein Negative Urine Glucose (UA) Negative Urine Ketones Negative Urine Blood Moderate H Urine Nitrate Negative Urine Bilirubin Negative Urine Urobilinogen 0.2 Ur Leukocyte Esterase Trace H Urine RBC 1 - 3 Urine WBC 0 - 2 Ur Epithelial Cells 4 - 5 Urine Bacteria Few Urine Osmolality 217 L 02/14/18 02/15/18 02/15/18 21:04 05:50 05:50 WBC RBC Hgb Hct MCV MCH MCHC RDW Plt Count MPV Sodium 145 Potassium 4.0 Chloride 105 Carbon Dioxide 28 Anion Gap 16 BUN 18 Creatinine 0.9 Est GFR ( Amer) > 60 Est GFR (Non-Af Amer) > 60 POC Glucose (mg/dL) 110 Random Glucose 108 Hemoglobin A1c Calcium 10.2 Total Bilirubin AST ALT Alkaline Phosphatase NT-Pro-B Natriuret Pep Total Protein Albumin Globulin Albumin/Globulin Ratio Procalcitonin < 0.05 L Urine Color Urine Appearance Urine pH Ur Specific [place] Urine Protein Urine Glucose (UA) Urine Ketones Urine Blood Urine Nitrate Urine Bilirubin Urine Urobilinogen Ur Leukocyte Esterase Urine RBC Urine WBC Ur Epithelial Cells Urine Bacteria Urine Osmolality 02/15/18 02/15/18 07:22 11:30 WBC RBC Hgb Hct MCV MCH MCHC RDW Plt Count MPV Sodium Potassium Chloride Carbon Dioxide Anion Gap BUN Creatinine Est GFR ( Amer) Est GFR (Non-Af Amer) POC Glucose (mg/dL) 112 H 78 Random Glucose Hemoglobin A1c Calcium Total Bilirubin AST ALT Alkaline Phosphatase NT-Pro-B Natriuret Pep Total Protein Albumin Globulin Albumin/Globulin Ratio Procalcitonin Urine Color Urine Appearance Urine pH Ur Specific [place] Urine Protein Urine Glucose (UA) Urine Ketones Urine Blood Urine Nitrate Urine Bilirubin Urine Urobilinogen Ur Leukocyte Esterase Urine RBC Urine WBC Ur Epithelial Cells Urine Bacteria Urine Osmolality Laboratory Results - last 24 hr 02/16/18 02/16/18 02/17/18 16:38 21:54 06:45 WBC 6.0 RBC 4.48 Hgb 12.8 Hct 39.8 MCV 88.8 MCH 28.6 MCHC 32.2 RDW 14.3 Plt Count 259 MPV 11.0 Gran % 54.2 Lymph % (Auto) 27.2 [place] % (Auto) 15.2 H Eos % (Auto) 3.1 Baso % (Auto) 0.3 Gran # 3.27 Lymph # (Auto) 1.6 [place] # (Auto) 0.9 H Eos # (Auto) 0.2 Baso # (Auto) 0.02 POC Glucose (mg/dL) 128 H 127 H 02/17/18 02/17/18 07:22 11:39 WBC RBC Hgb Hct MCV MCH MCHC RDW Plt Count MPV Gran % Lymph % (Auto) [place] % (Auto) Eos % (Auto) Baso % (Auto) Gran # Lymph # (Auto) [place] # (Auto) Eos # (Auto) Baso # (Auto) POC Glucose (mg/dL) 107 116 H no signs of agranulocytosis, labs submitted to clozaril rems 02/17/18 Laboratory Results - last 24 hr 02/21/18 02/21/18 02/22/18 16:08 21:14 07:00 POC Glucose (mg/dL) 140 H 152 H Valproic Acid 66 02/22/18 02/22/18 07:29 11:23 POC Glucose (mg/dL) 103 121 H Valproic Acid DSM 5 Symptoms Update: shortly patient is 62-year- female, reported h/o Bipolar disorder, not known h/ o suicidal attempts, not known h/o psychiatric admissions, pt was transferred from the [facility] in [place] where she was getting subacute care for orthopedic surgery, pt was transferred from the facility for evaluation of disorganized, psychotic, agitated and aggressive behavior. As per report from the [facility] facility, pt was sexually preoccupied/constantly disrobing or walking around naked, pt was also responding to internal stimuli, pt also broke drawers in facility, was pouring water over other residents, previously pt was in assisted living, pt was able to sign consent for treatment. as per report from the nursing staff patient Required Ativan when necessary for agitation on Wednesday, since then pt did not required to have any PRN meds. pt seems on the way of improvement, pt was seen at the dinning area, less psychotic , much calmer, was making eye contact. pt was not obsessed with water or juice, pt was not paranoid, pt had h/o screaming that she committed a crime and she is afraid of punishment, when this public relations writer asked pt about it, pt said "what make you think that I committed a crime?". pt is still on 1:1 for high risk of falls , but not for aggression. as per PCP pt ate 100% of her meal. pt was less abusive towards 1:1 sitter, not cursing. pt has no side effects of meds, AIMS 0, no EPS, pt tolerates clozaril well. Impression: Schizoaffective disorder delirium better Medication Change: Yes (clozaril titration) Medical Record Reviewed: Yes Consults ordered or reviewed: medical consult appreciated, nephrology consult appreciated. discussed case with Dr. Adams 02/04/18, sodium was climbing up, we'll of course patient drinking plenty of water discussed with Dr. Jaffe 02/04/18, he shouldn't should continue antibiotics for another 5 days, last dose February 09 discussed with 02/14/18 pt was started on Thiazide. current labs wnl Mental Status Examination - Cognitive Function Orientation: Person Memory: Impaired Attention: Poor (some improvement) Concentration: Poor (some improvement) Association: Loose Fund of Knowledge: Poor - Mood Mood: Depressed ("I am good") - Affect Affect: Constricted - Formal Thought Process Formal Thought Process: Paranoia (much better), Loosening of associations - Suicidal Ideation Suicidal Ideation: No - Homicidal Ideation Homicidal Ideation: No Goal/Treatment Plan - Goal/Treatment Plan Need for Continued Stay: Remain at risks for inpatient hospitalization, Severe depression anxiety, Discharge may exacerbated symptoms, Failed transitioning, Severe functional impairment Progress Toward Problem(s) and Goals/Treatment Plan: milieu/structure/supportive therapy seroquel discontinued Clozaril on titration schedule clozaril 100mg am and 200mg hs Pt was registered on [facility] on weekly monitoring blood work 02/17/18 within normal limits thorazine discontinue 02/17/2018 depakote 250mg po bid and hs for mood stabilization depakote level was 43 02/16/2018 depakote level 66 02/22/18 Xanax1 mg 3 times a day scheduled sonata as needed nephrology and medical team involved SW consultation for discharge plan and social issues psychiatrist was contacted, awaiting for call back Family involvement Follow up on labs Will monitor closely Pt was educated about risk/benefits and alternatives of medications, coping strategies (safety plan, suicide prevention), relapse prevention, importance of follow up with psychiatrist and therapist, stay away from drugs/alcohol/smoking patient still required to be on one-to-one Estimated Date of D/C: 02/23/18
--- NOTE | 2018-02-22 14:34 | PN ---
DATE: SUBJECTIVE: I saw her sitting in a wheelchair. She is doing well. She is asking for something to drink. MEDICATIONS: She is on Ativan, Bacid, Clozaril, Colace, Depakote, DuoNebs, Feosol, folic acid, insulin, Lovenox, Maalox, milk of magnesia, Sonata, Thorazine, Tylenol and Xanax. PHYSICAL EXAMINATION: GENERAL: Overall, she is stable. VITAL SIGNS: She has a 98.3 temp, 85 pulse, 117/76 blood pressure, 20 respiratory rate. HEENT: Head is atraumatic, normocephalic. HEART: Regular rate. LUNGS: Clear to auscultation. ABDOMEN: Soft, nontender. Positive bowel sounds. EXTREMITIES: No edema. LABORATORY DATA: She had lab done on 02/17/2018, which is good. Last blood sugar was 103. ASSESSMENT AND PLAN: She has been seen by psychiatry. I think she has found her groove. She is here for upper respiratory infection, urinary tract infection, bipolar. Continue with Psychiatry with medication adjustment. Tien Jaffe DO MTDD
[2018-02-23] MEDS: Albuterol-Ipratrop 3 mg / 0.5 (3 ml) UD IH SCH ×2 (02:30→06:55)
[2018-02-23 07:03] VITALS: BP 135/78; PULSE 92; TEMP 98.2
[2018-02-23 07:33] LABS: BASO # 0.04 K/mm3 (0.0-2.0); BASO % 0.4 % (0.0-3.0); EOS # 0.2 (0.0-0.7); EOS % 1.7 % (1.5-5.0); GRAN # 5.95 (1.4-6.5); GRAN % 63.9 % (50.0-68.0); HEMOGLOBIN 12.8 g/dL (12.0-16.0); LYMPH # 2.3 (1.2-3.4); LYMPH % 24.4 % (22.0-35.0); MEAN CELL VOLUME 88.1 fl (80.0-105.0); MEAN CORPUSCULAR HEMOGLOBIN 28.6 pg (25.0-35.0); MEAN CORPUSCULAR HGB CONC 32.5 g/dl (31.0-37.0); MEAN PLATELET VOLUME 11.4 fl (7.0-11.0); MONO # 0.9 (0.1-0.6); MONO % 9.6 % (1.0-6.0); RBC 4.47 10^6/uL (3.5-6.1); RED CELL DISTRIBUTION WIDTH 13.9 % (11.5-14.5); WHITE BLOOD COUNT 9.3 10^3/ul (4.5-11.0)
[2018-02-23] MEDS: Insulin Reg-MEDIUM-Coverage SC SCH (08:20)
[2018-02-23] MEDS: Divalproex 250 mg ER (ONCE DAILY formulation) PO SCH (09:01)
[2018-02-23] MEDS: Lactobacillus Acidophilus 500 MU Cap PO SCH (09:02)
[2018-02-23] MEDS: Enoxaparin 30 mg Syringe SC SCH (09:02)
--- NOTE | 2018-02-23 14:33 | PN ---
DATE: 02/23/2018 SUBJECTIVE: I saw her eating breakfast this morning. She is alert, calm and comfortable. She is eating Gatorade as opposed to a soda. She is on Ativan, Bacid, Clozaril, Colace, Depakote, DuoNeb, Feosol, folic acid, [place], Lovenox, Maalox, milk of magnesia, Sonata, Thorazine, Tylenol and Xanax. PHYSICAL EXAMINATION VITAL SIGNS: She has a 98.2 temp, 92 pulse, 135/70 blood pressure, 20 respiratory rate. HEENT: Head is atraumatic, normocephalic. HEART: Regular rate. LUNGS: Clear to auscultation. ABDOMEN: Soft, obese. EXTREMITIES: No edema. Overall, she is improved. LABORATORY DATA: she has 9.3 white count, 12.8 hemoglobin, 39.4 hematocrit with 188 platelets. Last blood sugar was 102. Overall, she is doing well, better. She had multiple issues while she was here. She had been adjusting the Psychiatry medications. She had an upper respiratory tract infection. She had urinary tract infection, bipolar and as per Psychiatry when she could be discharged back to her assisted living place. Tien Jaffe DO MTDD
== END 2018-02-23 13:46 | DRG 430 ==
LOC: ED 12:59 → ERH 20:21 → PSYC 21:46
PROVIDERS: ADMIT Psychiatry & Neurology Psychiatry; ATTEND Psychiatry & Neurology Psychiatry
DX: F25.0 Schizoaffective disorder, bipolar type (principal); N39.0 Urinary tract infection, site not specified; E87.0 Hyperosmolality and hypernatremia; E23.2 Diabetes insipidus; F05 Delirium due to known physiological condition; J06.9 Acute upper respiratory infection, unspecified; E83.52 Hypercalcemia; T43.595A Adverse effect of other antipsychotics and neuroleptics, initial encounter; R03.0 Elevated blood-pressure reading, without diagnosis of hypertension; F41.9 Anxiety disorder, unspecified